=== PATIENT | female | born 1965 | race Caucasian/White ===

== ENCOUNTER → 2020-10-10 | Outpatient (CLI) | payer OTHER ==
[2020-10-10 10:10] LABS: T4, Free (Free Thyroxine) 1.42 ng/dL (0.78-2.19)
--- NOTE | 2020-10-10 16:14 | US ---
EXAMINATION TYPE: US thyroid st tissue head/neck DATE OF EXAM: 10/10/2020 COMPARISON: NONE CLINICAL HISTORY: E05.00 Thyrotoxicosis with diffuse goiter without. goiter, thyrotoxicosis GLAND SIZE: Right Lobe: 5.2 x 1.2 x 2.0 cm Overall Parenchyma: heterogenous Left Lobe: 5.7 x 1.6 x 2.0 cm Overall Parenchyma: heterogeneous Isthmus Thickness: 0.3 cm NODULES RIGHT: # of nodules measured on right: 2 1. 1.4 X 0.8 x 1.1 cm, mid , solid, isoechoic nodule, which is wider than tall, with ill-defined ma rgins, without echogenic foci. Prior size: no prior 2. 1.4 X 0.7 x 1.1 cm, mid , mixed, hypoechoic nodule, which is wider than tall, with smooth margin s, with echogenic foci. Prior size: no prior LEFT: # of nodules measured on left: 2 1. 2.9 X 1.9 x 2.9 cm, lower , solid or almost completely solid, isoechoic nodule, which is wider t bettencourt tall, with smooth margins, without echogenic foci. Prior size: no prior 2. 1.5 X 1.1 x 1.6 cm, mid , mixed, isoechoic nodule, which is wider than tall, with smooth margin s, without echogenic foci. Prior size: no prior ISTHMUS: # of nodules measured in the isthmus: 1 1. 0.8 X 0.5 x 0.9 cm solid, hypoechoic nodule, which is wider than tall, with smooth margins, with out echogenic foci. Prior size: no prior Bilateral neck scanned, lymph nodes noted bilaterally. Heterogeneous enlarged thyroid with multiple bilateral nodules. IMPRESSION: Most concerning right-sided nodule is the 1.4 cm mixed nodule with echogenic foci image 2 8, TR 4 lesion. Most concerning left-sided nodule is the dominant 2.9 cm isoechoic solid nodule, TR 3 lesion. The TR 3 lesion warrants sampling due to size. 2017 ACR TI-RADS LEVEL: TR-RADS 4 - Moderately Suspicious: Follow if > 1 cm, FNA if > 1.5 cm *Highest TI-RADS level nodule reported
--- NOTE | 2020-10-11 10:34 | NM ---
EXAMINATION TYPE: NM thyroid image w uptake DATE OF EXAM: 10/11/2020 COMPARISON: Ultrasound 10/10/2020 HISTORY: Abnormal thyroid ultrasound TECHNIQUE: Thyroid iodine uptake is calculated and images performed after the oral administration of 292 uCi 1-123 Capsule. FINDINGS: There is large area of increased uptake involving the lower pole the left right. There also is reduced uptake involving the mid and lower pole right thyroid appears to correspond to the ultras ound nodules.. The 4 hour iodine uptake is calculated at 10.2% (normal range 8-14%). The 24-hour iod ine uptake is calculated at 27.4% (normal range 15-35%). IMPRESSION: 1. Normal 4 and 24 hour uptake exam 2. Hot nodule left lower pole corresponds to the large 2.9 cm left thyroid nodule. 3. Cold nodules correspond to the mid pole right thyroid nodules noted by ultrasound.
== END ==
LOC: RADUSWWP 08:02
PROVIDERS: ATTEND Internal Medicine Endocrinology, Diabetes & Metabolism
DX: E05.20 Thyrotoxicosis with toxic multinodular goiter without thyrotoxic crisis or storm (principal)
CPT/HCPCS: 84439; 84445; 84443; 84480; 76536; 78014; A9516

== ENCOUNTER → 2021-08-30 | Outpatient (CLI) | payer OTHER ==
--- NOTE | 2021-09-02 06:58 | PE ---
EXAMINATION TYPE: PET CT fusion skull to thigh DATE OF EXAM: 08/30/2021 COMPARISON: Chest CT August 02, 2021 HISTORY: Solitary pulmonary nodule, abnormal CT. TECHNIQUE: Following the intravenous administration of 8.08 mCi of F-18 FDG, whole body images are p erformed from the skull base to the midthigh. Images are reviewed on the computer in the coronal, ax ial, and sagittal planes. Reconstructed rotating images are created on independent workstation and r eviewed on the computer. A localization and attenuation correction CT is performed in conjunction w ith the PET scan. Blood glucose level equals 90. SCAN: Initial Scan FINDINGS: SKULL BASE AND NECK: Mild increased uptake throughout the anterior tongue and posterior lower tongue base fairly symmetric presumed physiologic. No hypermetabolic neck lymph nodes. CHEST, MEDIASTINUM, AND HILAR REGION: Mild underlying emphysematous change is redemonstrated. Persist ent posterior right lower lung nodule or nodular consolidation measuring 3.0 x 1.2 cm axial image 115 extending inferiorly, mildly hypermetabolic, max SUV is 5.18 on axial image 122. Persistent anterior right upper lung irregular nodular consolidation with more suspicious focal anterior hypermetabolic 1.0 cm nodule axial image 90, max SUV is 5.62. Enlarging peripheral left midlung hypermetabolic nodul e measuring 2.1 x 1.5 cm axial image 91, max SUV is 7.06. Persistent 9 mm left lower lobe central nod ule image 99 with mild hypermetabolic uptake. The Max SUV less than 2.5. No abnormal hypermetabolic thoracic lymph nodes. ABDOMEN AND PELVIS: No adrenal masses. No abnormal hypermetabolic uptake. Normal excretion. OSSEOUS STRUCTURES: No abnormal hypermetabolic uptake. OTHER CT: Nonvisualized left thyroid lobe redemonstrated. Persistent cardiomegaly with prominent pulm onary arteries suggesting underlying pulmonary artery hypertension. Uterus surgically absent or markedly atrophic. Occasional right-sided pelvic phlebolith. Vacuum disc phenomenon with moderate disc space narrowing L5-S1 level. IMPRESSION: Scattered bilateral nodules and/or nodular consolidation redemonstrated. Areas of hyperme tabolic uptake however noted most suspicious anterior right mid lung and greater degree peripheral le ft mid lung levels. Neoplasm at these levels has to be considered. No abnormal adenopathy or metastat ic disease seen.
== END | disposition home or self-care (01) ==
LOC: RADPETMAIN 15:38
PROVIDERS: ATTEND Internal Medicine Critical Care Medicine
DX: R91.8 Other nonspecific abnormal finding of lung field (principal)
CPT/HCPCS: 78815; A9552

== ENCOUNTER → 2022-05-27 | Outpatient (CLI) | payer OTHER ==
[~2022-05-27] MED LIST: DOBUTamine DRIP for NUC MED 500 MG in DEXTROSE/WATER 1 250ML.BAG IV PRN; DOBUTamine DRIP for NUC MED 500 MG/250 ML BAG IV ONE
--- NOTE | 2022-05-27 11:57 | CA ---
Dobutamine Stress Echocardiogram Report Jose Awan Age: 57 Gender: F : 1965 Exam Date: 05/27/2022 10:22 Exam Location: [facility] Ordering Physician: Cristopher Cortez DO ([email or web address]) Referring Physician: CRISTOPHER CORTEZ,, Nanofabrication Specialist: Jalil Dunn Technologist: Ht (in): 67 Wt (lb): 245 Procedure CPT: Indication: R06.02 SOB ICD-9 Codes: Rhythm: Patient History: Cardiac Medications: Medications in past 24 hours: Contrast: Total Dose (mL): Stress Results Protocol: Dobutamine Peak Dose (???g/kg/min): Duration (min:sec): Atropine:(mg) Target HR: 140 Double Product: [id number] Resting HR: 90 Resting BP: 117 / 53 Peak HR: 145 Peak BP: 112 / 75 Max Predicted HR: 165 88 % Max Predicted HR Stress Summary: BP Response: Reason for Termination: Exceeded target heart rate (85% max predicted) Cardiac Symptoms: ECG Analysis Resting EKG: Normal sinus rhythm normal axis normal intervals Stress EKG: No evidence of ST segment depression Arrhythmia: No significant cardiac arrhythmia Echo Analysis Base Echo Analysis: Technically suboptimal study normal left ventricular size wall motion systolic function Low Echo Anaylsis: Normal hyperdynamic response Peak Echo Analysis: No dobutamine induced wall motion of normalities Recovery Echo: Normal MEASUREMENTS (Male/Female) Normal Values CONCLUSIONS Negative stress test by EKG criteria Negative dobutamine stress echo Dr. Laurent Pulliam MD (Electronically Signed) Final Date: 27 May 2022 11:56
== END | disposition home or self-care (01) ==
LOC: RADNMMAIN 09:52
PROVIDERS: ATTEND Internal Medicine
DX: R06.02 Shortness of breath (principal)
CPT/HCPCS: 93351

== ENCOUNTER → 2022-05-28 | Outpatient (CLI) | payer OTHER ==
[2022-05-28 16:39] LABS: INR 0.9 (<1.2); Partial Thromboplastin Time 28.4 sec (22.0-30.0); Prothrombin Time 10.2 sec (9.0-12.0)
[2022-05-28 22:51] LABS: HCT 39.1 % (37.2-46.3); HGB 12.4 g/dL (12.0-15.0); MCH 28.7 pg (27.0-32.0); MCHC 31.7 g/dL (32.0-37.0); MCV 90.5 fL (80.0-97.0); Mean Platelet Volume 11.6 fL (9.5-12.2); NRBC Per 100 WBC 0 /100 WBCS (0.0-0.0); Platelet Count 416 X 10*3/uL (140-440); RBC 4.32 X 10*6/uL (4.10-5.20); RDW 14.6 % (11.5-14.5); WBC 11.78 X 10*3/uL (4.50-10.00)
[2022-05-28 23:14] LABS: African American GFR (CKD) 111.7 (60.0-200.0); Anion Gap 10.7 mmol/L (10.00-18.00); Blood Urea Nitrogen 10.9 mg/dL (9.0-27.0); Carbon Dioxide 25.2 mmol/L (20.0-27.5); Non-African American GFR(CKD) 96.4 (60.0-200.0); Potassium 4.7 mmol/L (3.5-5.5)
== END | disposition home or self-care (01) ==
LOC: LABPAT 15:42
PROVIDERS: ATTEND Thoracic Surgery (Cardiothoracic Vascular Surgery)
DX: Z01.812 Encounter for preprocedural laboratory examination (principal); I10 Essential (primary) hypertension; E87.8 Other disorders of electrolyte and fluid balance, not elsewhere classified; Z79.899 Other long term (current) drug therapy; R58 Hemorrhage, not elsewhere classified; R91.8 Other nonspecific abnormal finding of lung field; R07.9 Chest pain, unspecified
CPT/HCPCS: 80051; 82565; 84520; 85027; 85610; 85730; 86850; 86900; 86901

== ENCOUNTER 2022-06-03 05:33 | Inpatient (IN) | payer OTHER ==
[2022-05-29 15:29] VITALS: BMI 37.5
[2022-06-03] MEDS ORDERED: SCOPOLAMINE 1 MG/72 HR PATCH TRANSDERM ONE (06:09)
[2022-06-03] MEDS ORDERED: LIDOCAINE 1% (10MG/ML) FOR IV START INTRADERMA PRN (06:09)
[2022-06-03] MEDS ORDERED: DEXAMETHASONE SOD PHOSPHATE 4 MG/ML 1 ML VIAL IV ONE (06:09)
[2022-06-03] MEDS ORDERED: ONDANSETRON 4 MG/2 ML VIAL IVP ONE ×2 (06:09→07:09)
[2022-06-03] MEDS ORDERED: LACTATED RINGERS 1,000 ML IV SCH ×2 (06:09→12:32)
[2022-06-03] MEDS ORDERED: LACTATED RINGERS 1,000 ML IV ONE ×3 (06:25→08:30)
[2022-06-03] MEDS ORDERED: MIDAZOLAM 2 MG/2 ML VIAL IVP ONE (06:55)
[2022-06-03] MEDS ORDERED: PROPOFOL 10 MG/ML 20 ML VIAL IV ONE (07:30)
[2022-06-03] MEDS ORDERED: MIDAZOLAM 2 MG/2 ML VIAL ONE (07:30)
[2022-06-03] MEDS ORDERED: LIDOCAINE 2% INJ 20 MG/ML (2 ML VIAL) ONE (07:30)
[2022-06-03] MEDS ORDERED: fentaNYL (PF) 50 MCG/ML 2 ML AMP ONE (07:30)
[2022-06-03] MEDS ORDERED: NEOSTIGMINE 1 MG/ML 10 ML VIAL ONE (07:30)
[2022-06-03] MEDS ORDERED: HYDROmorphone (PF) 1 MG/ML ONE (07:30)
[2022-06-03] MEDS ORDERED: DEXAMETHASONE SOD PHOSPHATE 10 MG/ML 1 ML VIAL ONE (07:30)
[2022-06-03] MEDS ORDERED: ROCURONIUM 10 MG/ML (5 ML VIAL) IV ONE (07:30)
[2022-06-03] MEDS ORDERED: SUCCINYLCHOLINE CHLORIDE 200 MG/10 ML VIAL IV ONE (07:30)
[2022-06-03] MEDS ORDERED: GLYCOPYRROLATE 0.2 MG/ML 2 ML VIAL ONE (07:30)
[2022-06-03] MEDS: SODIUM CHLORIDE 0.9% 50 ML with ceFAZolin 1,000 MG IV ONE ×4 (08:30→14:31)
[2022-06-03] MEDS ORDERED: BUPIVACAINE (PF) 0.25% 30 ML VIAL SQ ONE ×2 (08:30)
--- NOTE | 2022-06-03 10:39 | P.OP ---
Date of Procedure: 06/03/22 Preoperative Diagnosis: Bilateral pulmonary nodules Postoperative Diagnosis: Same Procedure(s) Performed: 1. Bronchoscopy 2. Left video assisted thorascopic surgery, wedge resection of left upper lobe nodule 3. Intercostal nerve block at 3 levels - 7, 9, 5 Anesthesia: GETA Surgeon: Neymar Mckeon Estimated Blood Loss (ml): 200 Urine output (ml): 200 Pathology: other (left upper lobe nodule) Condition: stable Disposition: PACU Indications for Procedure: This patient is a 57 year-old female with a history of GERD, HLD, and FM who was found to have bilateral pulmonary nodules on CT scan. She has a history of partial thyroidectomy with signs of sarcoid. She was never officially treated for sarcoid. Risks, alternatives and benefits were discussed with the patient regarding wedge resection of one of the lung nodules.She was in agreement to proceed. Operative Findings: Frozen section positive for granulomatous disease Description of Procedure: The patient underwent arterial line placement in the pre-operative suite. She was brought to the operating room and placed in the supine position. General anesthesia was induced and she was intubated with a double lumen tube. Bronchoscopy was performed to confirm placement and for diagnostic purposes. The entire tracheo-bronchial tree was normal. The patient was positioned in the right lateral decubitus position and the left chest was prepped and draped in the usual sterile fashion. A time-out was performed and antibiotics were given. I made a 2cm incision below the scapula. The left lung was isolated and entry into the chest was gained under direct vision. I made two additional incision in the 9th ICS and 5th ICS mid and anterior axillary line. 0.25% marcaine was used to perform intercostal nerve blocks in all three areas. Upon visualization of the lung there was a large nodule centrally in the left upper lobe. I attempted to wedge this with multiple firings of the endo MY, however this was very difficult given its central nature. Some of the nodule was piecemealed and sent to pathology for a frozen section. This revealed glaucomatous disease. I then completed the wedge. Some of this was sent for permanent pathology and culture. Progel was then placed along the lung surface, and the left chest was irrigated. A 28F chest tube was placed via the inferior incision and two lung ventilation was resumed. All incisions were closed in layers of vicryl and skin glue. The patient was extubated and sent to recovery in stable condition.
--- NOTE | 2022-06-03 11:35 | XR ---
EXAMINATION TYPE: XR chest 1V portable DATE OF EXAM: 06/03/2022 COMPARISON: 08/28/2021 HISTORY: Chest tube TECHNIQUE: Single frontal view of the chest is obtained. FINDINGS: A bilateral infiltrate and small effusion. Heart size stable. Left-sided chest tube noted and there is a left-sided pneumothorax measuring approximately 25 % pneumothorax no definite mediasti nal deviation. IMPRESSION: 1. Chest tube in position with approximately 25% left-sided pneumothorax. 2. Bilateral diffuse airspace disease with small effusion.
[2022-06-03] MEDS: HYDROmorphone 0.5 MG/0.5 ML SYRINGE IVP PRN ×2 (11:38→12:17)
[2022-06-03] MEDS ORDERED: IPRATROPIUM-ALBUTEROL 3 ML NEB IH PRN (12:32)
[2022-06-03] MEDS ORDERED: ONDANSETRON 4 MG/2 ML VIAL IVP PRN (12:32)
[2022-06-03] MEDS ORDERED: methocarbamoL 500 MG TAB PO PRN (12:32)
[2022-06-03] MEDS: ACETAMINOPHEN IV (For NPO) 1,000 MG in EMPTY BAG 1 BAG IVPB SCH ×2 (15:13→21:18)
[2022-06-03 15:28] LABS: Basophils # (A) 0.1 k/uL (0-0.2); Basophils % (A) 0 %; Eosinophils # (A) 0.2 k/uL (0-0.7); Eosinophils % (A) 1 %; HCT 40.4 % (34.0-46.0); HGB 13.1 gm/dL (11.4-16.0); Hypochromasia Slight; Lymphocytes # (A) 0.5 k/uL (1.0-4.8); Lymphocytes % (A) 2 %; MCH 29.4 pg (25.0-35.0); MCHC 32.4 g/dL (31.0-37.0); MCV 90.8 fL (80.0-100.0); Mean Platelet Volume 8.7; Monocytes # (A) 0.3 k/uL (0-1.0); Monocytes % (A) 1 %; Neutrophils # (A) 23.3 k/uL (1.3-7.7); Neutrophils % (A) 95 %; Platelet Count 366 k/uL (150-450); RBC 4.45 m/uL (3.80-5.40); WBC 24.4 k/uL (3.8-10.6)
[2022-06-03] MEDS: HEPARIN SODIUM,PORCINE/PF 5,000 UNIT/0.5 ML SYRINGE SQ SCH (16:22)
[2022-06-03] MEDS: IPRATROPIUM-ALBUTEROL 3 ML NEB IH SCH ×3 (16:32→20:40)
[2022-06-03 17:29] LABS: African American GFR (CKD) >90 (>60 ml/min/1.73 sqM); Anion Gap 8 mmol/L; Blood Urea Nitrogen 14 mg/dL (7-17); Calcium 8.8 mg/dL (8.4-10.2); Carbon Dioxide 22 mmol/L (22-30); Chloride 103 mmol/L (98-107); Glucose 176 mg/dL (74-99); Non-African American GFR(CKD) >90 (>60 ml/min/1.73 sqM); Potassium 5.4 mmol/L (3.5-5.1); Sodium 133 mmol/L (137-145)
[2022-06-03] MEDS: DULoxetine HCL 30 MG CAPSULE.DR PO SCH (17:44)
[2022-06-03] MEDS: FORMOTEROL FUMARATE 20 MCG/2 ML NEBU INHALATION SCH (20:39)
[2022-06-03] MEDS ORDERED: ETODOLAC 400 MG TAB PO SCH (21:00)
[2022-06-03] MEDS: KETOROLAC 15 MG/ML 1 ML VIAL IVP SCH (21:18)
--- NOTE | 2022-06-03 22:27 | P.CONS ---
History of Present Illness - Reason for Consult Consult date: 06/03/22 - History of Present Illness Patient is a 57-year female with a past medical history significant for smoking get severe reflux disease and anxiety this patient noticed to have a bilateral pulm nodules on CAT scan patient also history of partial thyroidectomy with signs of sarcoid patient has been admitted to the hospital in this patient with status post bronchoscopy and left video-assisted thoracoscopic surgery with with resolution of the left upper lobe nodule, infectious disease was consulted because of the granuloma and need for further work-up, patient denies having any history of any fever or any chills denies having any night sweats or weight loss patient do have a chronic cough which has been mild in intensity mostly dry in nature denies having hemoptysis or pleuritic chest pain patient on presentation to the hospital has been afebrile patient did have white count of 24.4 with a left shift kidney function has been normal patient did have AFB fungal and tissue cultures obtained which are currently pending and patient has received cefazolin perioperatively Past Medical History Past Medical History: Atrial Fibrillation, COPD, Fibromyalgia, GERD/Reflux, Osteoarthritis (OA), Thyroid Disorder Additional Past Medical History / Comment(s): STATES A-FIB RESOLVED WITH THYROID SURGERY (HAD GOITER), "BULGING DISC & TEAR", MIGRAINES, "EXHAUSTED ALL THE TIME", SOB, SEASONAL ALLERGIES. History of Any Multi-Drug Resistant Organisms: None Reported Past Surgical History: Adenoidectomy, Section, Hysterectomy, Joint Replacement, Tonsillectomy Additional Past Surgical History / Comment(s): LEFT THYROIDECTOMY, bronchoscopy, right hip replacemnet. Past Anesthesia/Blood Transfusion Reactions: Previous Problems w/ Anesthesia, Motion Sickness, Postoperative Nausea & Vomiting (PONV) Additional Past Anesthesia/Blood Transfusion Reaction / Comm: STATES BP DROPPED AND THEY HAD TO PUSH FLUIDS WITH THYROID SURGERY. SISTER PONV. Past Psychological History: Anxiety Additional Psychological History / Comment(s): ANXIETY WITH HEALTH ISSUES. STATES DULOXETINE TAKEN FOR FIBROMYALGIA. Smoking Status: Current every day smoker Past Alcohol Use History: Occasional Additional Past Alcohol Use History / Comment(s): SMOKES 1 PPD OR LESS, HX OF 1 1/2 PPD, STARTED SMOKING AT AGE 18. Past Drug Use History: None Reported - Past Family History Mother Family Medical History: No Reported History Medications and Allergies Home Medications Medication Instructions Recorded Confirmed Type Aspirin/Acetaminophen/Caffeine 1 each PO DIRECTED PRN 08/23/21 06/03/22 History [Excedrin Migraine Caplet] DULoxetine HCL [Cymbalta] 30 mg PO W/SUPPER 08/23/21 06/03/22 History Omeprazole 20 mg PO DAILY PRN 08/23/21 06/03/22 History diphenhydrAMINE [Benadryl] 25 mg PO HS PRN 08/23/21 06/03/22 History methocarbamoL [Methocarbamol] 500 mg PO QID PRN 08/23/21 06/03/22 History Diclofenac Sodium [Voltaren] 75 mg PO BID 05/29/22 06/03/22 History HYDROcodone/APAP 7.5-325MG [Sayre 1 tab PO DIRECTED PRN 05/29/22 06/03/22 History 7.5-325] Allergies Allergy/AdvReac Type Severity Reaction Status Date / Time No Known Allergies Allergy Verified 06/03/22 06:22 Physical Exam Vitals: Vital Signs Temp Pulse Pulse Pulse Resp BP BP 06/03/22 12:14 106 H 16 103/58 06/03/22 11:59 106 H 16 100/57 06/03/22 11:44 104 H 16 103/52 06/03/22 11:29 101 H 18 113/56 06/03/22 11:14 103 H 16 101/62 06/03/22 10:59 96 16 98/55 06/03/22 10:44 97 16 124/52 06/03/22 10:29 96.9 F L 99 16 124/52 06/03/22 07:04 93 18 06/03/22 06:26 96.7 F L 103 H 20 BP Pulse Ox 06/03/22 12:14 96 06/03/22 11:59 96 06/03/22 11:44 97 06/03/22 11:29 96 06/03/22 11:14 96 06/03/22 10:59 96 06/03/22 10:44 97 06/03/22 10:29 95 06/03/22 07:04 125/67 06/03/22 06:26 118/56 98 Intake and Output 06/02/22 06/03/22 06/03/22 22:59 06:59 14:59 Intake Total 700 1000 Output Total 400 Balance 700 600 Intake: IV 700 1000 Output: Urine 200 Estimated Blood Loss 200 Other: Weight 106.1 kg Results CBC & Chem 7: 06/03/22 14:37 06/03/22 16:55 Assessment and Plan Plan: 1patient with the history of pulmonary nodules with a masslike consolidation changes within the left upper lobe in this patient who is status post wedge resection of the left upper lobe frozen section did shows possible granulomatous disease with a final biopsy report as well as cultures are currently pending. 2we will obtain QuantiFERON TB Gold test and fungal serology as well as ARIK level. 3cultures and histopathology will be followed with the treatment on the basis of final cultures and histopathology 4continue with the cefazolin perioperatively for surgical prophylaxis We will follow on clinical condition and cultures to further adjust medication if needed Thank you for this consultation will follow this patient along with you Time with Patient: Greater than 30
[2022-06-04] MEDS: KETOROLAC 15 MG/ML 1 ML VIAL IVP SCH ×5 (02:02→23:25)
[2022-06-04] MEDS: HEPARIN SODIUM,PORCINE/PF 5,000 UNIT/0.5 ML SYRINGE SQ SCH ×4 (02:03→23:25)
[2022-06-04 07:10] LABS: Basophils % (A) 0 %; Eosinophils # (A) 0.1 k/uL (0-0.7); Eosinophils % (A) 1 %; Hypochromasia Slight; Lymphocytes # (A) 1.2 k/uL (1.0-4.8); Lymphocytes % (A) 6 %; MCH 29.3 pg (25.0-35.0); MCHC 32.3 g/dL (31.0-37.0); MCV 90.7 fL (80.0-100.0); Mean Platelet Volume 8.1; Monocytes # (A) 1.3 k/uL (0-1.0); Monocytes % (A) 6 %; Neutrophils % (A) 86 %; Platelet Count 326 k/uL (150-450); RBC 3.75 m/uL (3.80-5.40); RDW 13.9 % (11.5-15.5); WBC 19.8 k/uL (3.8-10.6)
[2022-06-04 07:33] LABS: ALT 16 U/L (4-34); AST 29 U/L (14-36); African American GFR (CKD) >90 (>60 ml/min/1.73 sqM); Albumin 3.8 g/dL (3.5-5.0); Alkaline Phosphatase 94 U/L (38-126); Anion Gap 9 mmol/L; Blood Urea Nitrogen 16 mg/dL (7-17); C Reactive Protein 7.2 mg/dL (<1.0); Calcium 8.6 mg/dL (8.4-10.2); Carbon Dioxide 20 mmol/L (22-30); Chloride 106 mmol/L (98-107); Glucose 172 mg/dL (74-99); Non-African American GFR(CKD) >90 (>60 ml/min/1.73 sqM); Potassium 4.6 mmol/L (3.5-5.1); Sodium 135 mmol/L (137-145); Total Bilirubin 0.5 mg/dL (0.2-1.3)
[2022-06-04] MEDS: IPRATROPIUM-ALBUTEROL 3 ML NEB IH SCH ×4 (08:26→20:13)
[2022-06-04] MEDS: PANTOPRAZOLE 40 MG TABLET PO SCH (08:26)
[2022-06-04] MEDS: FORMOTEROL FUMARATE 20 MCG/2 ML NEBU INHALATION SCH ×2 (08:26→20:13)
[2022-06-04] MEDS: HYDROcodone/APAP 7.5-325MG 1 EACH TAB PO PRN ×2 (08:26→16:50)
--- NOTE | 2022-06-04 08:36 | XR ---
EXAMINATION TYPE: XR chest 1V DATE OF EXAM: 06/04/2022 COMPARISON: 06/03/2022 HISTORY: Postop TECHNIQUE: Single frontal view of the chest is obtained. FINDINGS: Bilateral infiltrate and small effusion. Heart size stable. Left- sided chest tube noted a nd there is a left-sided pneumothorax measuring approximately 15 % pneumothorax no definite mediastin al deviation. IMPRESSION: Interval reduction in size of the left-sided pneumothorax now measuring approximately 15 % pneumothorax and bilateral infiltrates.
--- NOTE | 2022-06-04 09:01 | P.PN ---
Subjective Progress Note Date: 06/04/22 Principal diagnosis: Bilateral pulmonary nodules. Previous medical history of fibromyalgia, anxiety/depression, Covid infection in 11/2021, paroxysmal atrial fibrillation which resolved after partial thyroidectomy, sarcoidosis, current tobacco dependence POD #1 bronchoscopy, left video-assisted thoracoscopic surgery, wedge resection of the left upper lobe nodule, intercostal nerve block at 3 levels: 7, 9, 5 The patient was seen and examined sitting up in bed on the cardiac stepdown unit in no acute distress. Does state pain is mostly controlled with current medication regimen although it does hurt when she coughs, denies shortness of breath. Currently on 4 L nasal cannula with oxygen saturation in the high 90s, able to achieve 1000 mL on incentive spirometry. Left-sided chest tube present to continuous wall suction, noticeable air leak with coughing and expiration present. Patient states she has been up and ambulatory to and from the bathroom without difficulty. No other new concerns. Objective - Vital Signs Vital signs: Vital Signs Temp 98.0 F 06/04/22 04:00 Pulse 89 06/04/22 08:40 Resp 20 06/04/22 04:00 BP 118/69 06/04/22 04:00 Pulse Ox 96 06/04/22 08:29 FiO2 21 06/04/22 08:29 Intake & Output 06/03/22 06/04/22 06/04/22 18:59 06:59 18:59 Intake Total 1520 180 Output Total 1125 0 80 Balance 395 -2060 100 Weight 106.1 kg Intake: IV 1400 Oral 120 180 Output: Chest Tube Drainage 80 Chest Tube Left 80 Urine 925 2060 Estimated Blood Loss 200 Other: Voiding Method Toilet - Exam CONSTITUTIONAL: Appears comfortable, cooperative, no acute distress RESPIRATORY: Lungs sounds diminished bilaterally. Respirations even, nonlabored. Currently on 4 L nasal cannula with oxygen saturation 97%. Able to achieve 1000 mL on incentive spirometry. Strong cough. CARDIOVASCULAR: S1, S2 present. Regular rate and rhythm, sinus rhythm on tel emetry. Palpable peripheral pulses bilaterally. No edema present. No calf pain or tenderness noted. SCDs present. GASTROINTESTINAL: Abdomen soft, nontender, nondistended. Active bowel sounds present 4 quadrants. Tolerating diet. GENITOURINARY: Continues to void INTEGUMENTARY: Skin is warm and dry. Thoracic incision well approximated and covered with dry intact dressing. NEUROLOGIC: Cranial nerves II through XII intact MUSKULOSKELETAL: Able to move all extremities, strength equal bilaterally, gait normal PSYCHIATRIC: Alert and oriented to person place and time, appropriate affect, intact judgment and insight INVASIVE LINES AND TUBES: Left pleural chest tubes present and connected to wall suction, air leak present with coughing and expiration, 120 mL serosanguineous drainage since surgery - Allied health notes Allied health notes reviewed: nursing - Labs CBC & Chem 7: 06/04/22 06:53 06/04/22 06:53 Labs: Abnormal Lab Results - Last 24 Hours (Table) 06/03/22 06/03/22 06/04/22 Range/Units 14:37 16:55 06:53 WBC 24.4 H 19.8 H (3.8-10.6) k/uL RBC 3.75 L (3.80-5.40) m/uL Hgb 11.0 L (11.4-16.0) gm/dL Neutrophils # 23.3 H 17.0 H (1.3-7.7) k/uL Lymphocytes # 0.5 L (1.0-4.8) k/uL Monocytes # 1.3 H (0-1.0) k/uL Sodium 133 L (137-145) mmol/L Potassium 5.4 H (3.5-5.1) mmol/L Carbon Dioxide (22-30) mmol/L Glucose 176 H (74-99) mg/dL C-Reactive Protein (<1.0) mg/dL 06/04/22 Range/Units 06:53 WBC (3.8-10.6) k/uL RBC (3.80-5.40) m/uL Hgb (11.4-16.0) gm/dL Neutrophils # (1.3-7.7) k/uL Lymphocytes # (1.0-4.8) k/uL Monocytes # (0-1.0) k/uL Sodium 135 L (137-145) mmol/L Potassium (3.5-5.1) mmol/L Carbon Dioxide 20 L (22-30) mmol/L Glucose 172 H (74-99) mg/dL C-Reactive Protein 7.2 H (<1.0) mg/dL Microbiology - Last 24 Hours (Table) 06/03/22 10:14 Gram Stain - Preliminary Lung - Left Tissue Culture - Preliminary 06/03/22 10:14 Anaerobic Culture - Preliminary Lung - Left 06/03/22 10:14 Acid Fast Bacilli Culture - Preliminary Lung - Left 06/03/22 10:14 Fungal Culture - Preliminary Lung - Left - Imaging and Cardiology Chest x-ray: report reviewed, image reviewed Assessment and Plan Assessment: 1. Bilateral pulmonary nodules, status post bronchoscopy, left video-assisted thoracoscopic surgery, wedge resection of the left upper lobe nodule, frozen section positive for granulomatous disease, final pathology pending 2. History of fibromyalgia 3. Anxiety/depression 4. Covid infection in 11/2021 5. Paroxysmal atrial fibrillation which resolved after partial thyroidectomy 6. Sarcoidosis 7. Current tobacco dependence Plan: 1. Continue chest tube to continuous wall suction for another 24 hours, monitor for air leak resolution 2. Wean O2 as tolerated. Encourage incentive spirometry is 10 times every hour while awake. Bronchodilators per pulmonology 3. Increase activity, ambulate as tolerated. May take off suction for amb ulation 4. Will monitor daily labs and x-rays, monitor for final pathology 5. Infectious disease consulted, appreciate recommendations 6. Pain control with current medication regimen 7. Continue home medications 8. More recommendations to follow
[2022-06-04 13:18] LABS: Erythrocyte Sedimentation Rate 83 mm/hr (0-20)
--- NOTE | 2022-06-04 13:53 | P.CNPUL ---
History of Present Illness Consult date: 06/04/22 Requesting physician: Neymar Mckeon Reason for consult: other (Possible sarcoidosis) Chief complaint: Lung nodules History of present illness: This is a 57-year-old female who normally sees Dr. Raman for presumptive sarcoidosis. Patient underwent previous bronchoscopy and transbronchial biopsy done by Dr. Raman in August of 2021. Patient had multiple transbronchial biopsies of right middle lobe, right lower lobe and left upper lobe she also had bronchoalveolar lavage of the right middle lobe, and transbronchial needle aspiration of station 4R and station 7 lymph node. Biopsies back then were nondiagnostic of neoplasm or diarrhea lumbar this inflammation. CT of the chest back then showed Multiple subpleural nodules and mediastinal adenopathy. At one point the patient had partial thyroidectomy and that was diagnostic of sarcoidosis. Patient has been following up with Dr. Raman, and the last time she saw him was in February of 2022. Repeat CT of the chest in February showed increase in the size of the left midlung masslike consolidation as well as a new masslike areas within the right lower lobe adjacent to prior cavitary lesion. PET scan showed slight uptake and hypermetabolic activity. Hence the patient was advised to have surgical referral. Yesterday the patient underwent bronchoscopy, left video-assisted wedge resection of left upper lobe nodule. And the initial frozen section diagnosis seems to be noncaseating granuloma consistent with sarcoid however cultures are pending including fungal cultures and TB cultures. Considering her complex pulmonary history and possible sarcoidosis, this consult was initiated. According to the patient she was treated with prednisone in the past, and the last time she took prednisone was 8 months ago. Did not receive any other treatment for her sarcoidosis except prednisone Review of Systems Constitutional: Negative HEENT: Negative Pulmonary: As noted in HPI Cardiac: Negative Hematologic: Negative GI: Negative Genitourinary: Negative Musculoskeletal: Negative Endocrine: Negative Neurologic: Negative Hematologic: Negative Psychiatric: Negative Skin: Past Medical History Past Medical History: Atrial Fibrillation, COPD, Fibromyalgia, GERD/Reflux, Osteoarthritis (OA), Thyroid Disorder Additional Past Medical History / Comment(s): STATES A-FIB RESOLVED WITH THYROID SURGERY (HAD GOITER), "BULGING DISC & TEAR", MIGRAINES, "EXHAUSTED ALL THE TIME", SOB, SEASONAL ALLERGIES. History of Any Multi-Drug Resistant Organisms: None Reported Past Surgical History: Adenoidectomy, Section, Hysterectomy, Joint Replacement, Tonsillectomy Additional Past Surgical History / Comment(s): LEFT THYROIDECTOMY, bronchoscopy, right hip replacemnet. Past Anesthesia/Blood Transfusion Reactions: Previous Problems w/ Anesthesia, Motion Sickness, Postoperative Nausea & Vomiting (PONV) Additional Past Anesthesia/Blood Transfusion Reaction / Comment(s): STATES BP DROPPED AND THEY HAD TO PUSH FLUIDS WITH THYROID SURGERY. SISTER PONV. Past Psychological History: Anxiety Additional Psychological History / Comment(s): ANXIETY WITH HEALTH ISSUES. ST ATES DULOXETINE TAKEN FOR FIBROMYALGIA. Smoking Status: Current every day smoker Past Alcohol Use History: Occasional Additional Past Alcohol Use History / Comment(s): SMOKES 1 PPD OR LESS, HX OF 1 1/2 PPD, STARTED SMOKING AT AGE 18. Past Drug Use History: None Reported - Past Family History Mother Family Medical History: No Reported History Medications and Allergies Home Medications Medication Instructions Recorded Confirmed Type Aspirin/Acetaminophen/Caffeine 1 each PO DIRECTED PRN 08/23/21 06/03/22 History [Excedrin Migraine Caplet] DULoxetine HCL [Cymbalta] 30 mg PO W/SUPPER 08/23/21 06/03/22 History Omeprazole 20 mg PO DAILY PRN 08/23/21 06/03/22 History diphenhydrAMINE [Benadryl] 25 mg PO HS PRN 08/23/21 06/03/22 History methocarbamoL [Methocarbamol] 500 mg PO QID PRN 08/23/21 06/03/22 History Diclofenac Sodium [Voltaren] 75 mg PO BID 05/29/22 06/03/22 History HYDROcodone/APAP 7.5-325MG [[place] 1 tab PO DIRECTED PRN 05/29/22 06/03/22 History 7.5-325] Allergies Allergy/AdvReac Type Severity Reaction Status Date / Time No Known Allergies Allergy Verified 06/03/22 06:22 Physical Exam Vitals: Vital Signs Temp Pulse Pulse Resp BP Pulse Ox FiO2 06/04/22 12:01 90 06/04/22 12:00 98.2 F 101 H 20 116/68 91 L 06/04/22 11:51 88 06/04/22 09:54 95 06/04/22 08:40 89 06/04/22 08:29 96 21 06/04/22 08:26 92 06/04/22 08:00 97.5 F L 99 20 119/70 96 06/04/22 04:00 98.0 F 96 20 118/69 97 06/04/22 00:00 97.9 F 92 21 127/73 95 06/03/22 20:50 93 06/03/22 20:41 92 06/03/22 20:00 111 H 23 142/77 93 L 06/03/22 17:46 98.5 F 96 20 112/71 92 L 06/03/22 16:47 96 06/03/22 16:33 96 06/03/22 16:00 97.3 F L 95 20 110/71 94 L 06/03/22 14:25 98.5 F 96 20 112/71 92 L 06/03/22 13:49 103 H 16 101/69 93 L Intake and Output 06/03/22 06/04/22 06/04/22 22:59 06:59 14:59 Intake Total 120 180 Output Total 1984 800 480 Balance -1865 -800 -300 Intake: Oral 120 180 Output: Chest Tube Drainage 80 Chest Tube Left 80 Urine 1984 800 400 Other: Voiding Method Toilet Toilet Weight 106.1 kg Physical Exam: Revealed 57-year-old female in no distress. Head: Atraumatic, normocephalic. HEENT:[Neck is supple.] [No neck masses.] [No thyromegaly.] [No JVD.] Chest: [Clear throughout, no crackles, no rhonchi, no wheezes.] Left-sided chest tube is noted. Cardiac Exam: [Normal S1 and S2, no S3 gallop, no murmur.] Abdomen: [Soft, nontender, no megaly, no rebound, no guarding, normal bowel sounds.] Extremities: [No clubbing, no edema, no cyanosis.] Neurological Exam: [No focal neurologic deficit.] Alert oriented 3. Psychiatric: Normal mood affect and normal mental status examination. Skin: No rashes. Musculoskeletal: No deformities and no limitation in range of motion. Results - Laboratory Findings CBC and BMP: 06/04/22 06:53 06/04/22 06:53 Abnormal lab findings: Abnormal Labs 06/03/22 06/03/22 06/04/22 14:37 16:55 06:53 WBC 24.4 H 19.8 H RBC 3.75 L Hgb 11.0 L Neutrophils # 23.3 H 17.0 H Lymphocytes # 0.5 L Monocytes # 1.3 H ESR 83 H Sodium 133 L Potassium 5.4 H Carbon Dioxide Glucose 176 H C-Reactive Protein 06/04/22 06:53 WBC RBC Hgb Neutrophils # Lymphocytes # Monocytes # ESR Sodium 135 L Potassium Carbon Dioxide 20 L Glucose 172 H C-Reactive Protein 7.2 H - Diagnostic Findings Chest x-ray: image reviewed (As noted in HPI.) Assessment and Plan Assessment: Impression: Status post left video-assisted thoracoscopic surgery, wedge resection of left upper lobe nodule, postoperative day #1 Suspect sarcoidosis. Chronic atrial fibrillation Fibromyalgia History of hypothyroidism recommendation: Recommendation: Continue present supportive care measures Resume home meds Awaiting final pathology on her wedge resection Patient will need to have follow-up with Dr. Raman Incentive spirometry Early ambulation We will continue to follow Time with Patient: Greater than 30
[2022-06-04] MEDS: DULoxetine HCL 30 MG CAPSULE.DR PO SCH (16:50)
[2022-06-05] MEDS: HYDROcodone/APAP 7.5-325MG 1 EACH TAB PO PRN ×4 (01:03→20:51)
[2022-06-05] MEDS: KETOROLAC 15 MG/ML 1 ML VIAL IVP SCH ×4 (06:34→23:36)
[2022-06-05] MEDS: PANTOPRAZOLE 40 MG TABLET PO SCH (06:34)
[2022-06-05] MEDS ORDERED: MAGNESIUM HYDROXIDE 2,400 MG/10 ML CUP PO PRN (06:56)
--- NOTE | 2022-06-05 07:43 | P.PN ---
Subjective Progress Note Date: 06/05/22 Principal diagnosis: Bilateral pulmonary nodules. Previous medical history of fibromyalgia, anxiety/depression, Covid infection in 11/2021, paroxysmal atrial fibrillation which resolved after partial thyroidectomy, possible sarcoidosis, current tobacco dependence POD #2 bronchoscopy, left video-assisted thoracoscopic surgery, wedge resection of the left upper lobe nodule, intercostal nerve block at 3 levels: 7, 9, 5 The patient was seen and examined sitting up in a recliner on the cardiac stepdown unit in no acute distress. Does state pain is controlled with current medication regimen although it does hurt when she coughs, denies shortness of breath. Currently on room air with oxygen saturation in the mid 90s, able to achieve 1250 mL on incentive spirometry. Left-sided chest tube present to continuous wall suction, no air leak present this morning. Patient states she has been up and ambulatory in the hallway without difficulty. No other new concerns. Objective - Vital Signs Vital signs: Vital Signs Temp 98.2 F 06/05/22 04:00 Pulse 91 06/05/22 04:00 Resp 20 06/05/22 04:00 BP 118/76 06/05/22 04:00 Pulse Ox 95 06/05/22 04:00 FiO2 21 06/04/22 08:29 Intake & Output 06/04/22 06/05/22 06/05/22 18:59 06:59 18:59 Intake Total 540 Output Total 1520 1915 Balance -980 -1915 Intake: Oral 540 Output: Chest Tube Drainage 120 90 Chest Tube Left 120 90 Urine 1400 1825 - Exam CONSTITUTIONAL: Appears comfortable, cooperative, no acute distress RESPIRATORY: Lungs sounds diminished bilaterally. Respirations even, nonlabored. Currently on room air with oxygen saturation 95%. Able to achieve 1250 mL on incentive spirometry. Strong cough. CARDIOVASCULAR: S1, S2 present. Regular rate and rhythm, sinus rhythm on telemetry. Palpable peripheral pulses bilaterally. No edema present. No calf pain or tenderness noted. SCDs present. GASTROINTESTINAL: Abdomen soft, nontender, nondistended. Active bowel sounds present 4 quadrants. Tolerating diet. Positive flatus, negative bowel movement GENITOURINARY: Continues to void INTEGUMENTARY: Skin is warm and dry. Thoracic incisions well approximated and covered with dry intact dressing. NEUROLOGIC: Cranial nerves II through XII intact MUSKULOSKELETAL: Able to move all extremities, strength equal bilaterally, gait normal PSYCHIATRIC: Alert and oriented to person place and time, appropriate affect, intact judgment and insight INVASIVE LINES AND TUBES: Left pleural chest tubes present and connected to wal l suction, no air leak present this morning, 90 mL serosanguineous drainage overnight, 180 mL in the last 24 hours - Allied health notes Allied health notes reviewed: nursing - Labs CBC & Chem 7: 06/04/22 06:53 06/04/22 06:53 Labs: Abnormal Lab Results - Last 24 Hours (Table) 06/04/22 06/04/22 Range/Units 06:53 06:53 ESR 83 H (0-20) mm/hr Procalcitonin 0.10 H (0.02-0.09) ng/mL Microbiology - Last 24 Hours (Table) 06/03/22 10:14 Acid Fast Bacilli Smear - Final Lung - Left Acid Fast Bacilli Culture - Preliminary 06/03/22 10:14 Gram Stain - Preliminary Lung - Left Tissue Culture - Preliminary - Imaging and Cardiology Chest x-ray: image reviewed Assessment and Plan Assessment: 1. Bilateral pulmonary nodules, status post bronchoscopy, left video-assisted thoracoscopic surgery, wedge resection of the left upper lobe nodule, frozen section positive for granulomatous disease, final pathology pending 2. History of fibromyalgia 3. Anxiety/depression 4. Covid infection in 11/2021 5. Paroxysmal atrial fibrillation which resolved after partial thyroidectomy 6. Possible sarcoidosis 7. Current tobacco dependence Plan: 1. Chest tube placed to waterseal 2. Encourage incentive spirometry is 10 times every hour while awake. Bronchodilators per pulmonology 3. Increase activity, ambulate as tolerated 4. Will monitor daily labs and x-rays, monitor for final pathology 5. Infectious disease consulted, appreciate recommendations 6. Pain control with current medication regimen 7. Continue home medications 8. More recommendations to follow
[2022-06-05] MEDS: SENNOSIDES-DOCUSATE SODIUM 1 EACH TAB PO SCH ×2 (08:06→20:51)
[2022-06-05] MEDS: HEPARIN SODIUM,PORCINE/PF 5,000 UNIT/0.5 ML SYRINGE SQ SCH ×3 (08:06→23:36)
--- NOTE | 2022-06-05 08:11 | XR ---
EXAMINATION TYPE: XR chest 1V portable DATE OF EXAM: 06/05/2022 COMPARISON: 06/04/2022 HISTORY: Postsurgical TECHNIQUE: Single frontal view of the chest is obtained. FINDINGS: Bilateral infiltrate and small effusion. Heart size stable. Left- sided chest tube noted a nd there is a left-sided pneumothorax measuring approximately 10 % pneumothorax no definite mediastin al deviation. IMPRESSION: 1. Interval reduction in size of the left-sided pneumothorax now measuring approximately 10% pneumoth orax. 2. Stable bilateral infiltrates.
[2022-06-05] MEDS: IPRATROPIUM-ALBUTEROL 3 ML NEB IH SCH ×4 (08:17→21:01)
[2022-06-05] MEDS: FORMOTEROL FUMARATE 20 MCG/2 ML NEBU INHALATION SCH ×2 (08:17→21:01)
[2022-06-05 08:39] LABS: HGB 11.2 gm/dL (11.4-16.0); Hypochromasia Moderate; MCH 29.1 pg (25.0-35.0); MCHC 31.9 g/dL (31.0-37.0); MCV 91.3 fL (80.0-100.0); Mean Platelet Volume 9.5; Platelet Count 288 k/uL (150-450); RBC 3.83 m/uL (3.80-5.40); RDW 14.3 % (11.5-15.5); WBC 13.7 k/uL (3.8-10.6)
[2022-06-05 08:53] LABS: African American GFR (CKD) >90 (>60 ml/min/1.73 sqM); Anion Gap 8 mmol/L; Blood Urea Nitrogen 12 mg/dL (7-17); Calcium 8.8 mg/dL (8.4-10.2); Carbon Dioxide 27 mmol/L (22-30); Chloride 104 mmol/L (98-107); Glucose 109 mg/dL (74-99); Non-African American GFR(CKD) >90 (>60 ml/min/1.73 sqM); Potassium 4.6 mmol/L (3.5-5.1); Sodium 139 mmol/L (137-145)
--- NOTE | 2022-06-05 11:25 | P.ANPRN ---
Procedure Note - Anesthesia - Invasive Line Right Arterial Line Time Out Performed: Yes Date of Procedure: 06/05/22 Location of Patient: PreOp Preparation: Sterile Prep, Sterile Dressing Arterial Line Location: Radial Ultrasound Used: No Purpose - Visualization and Identification of Vasculature: No Image Stored and Saved: No Narrative: Central line placement per sterile protocol utilized.
--- NOTE | 2022-06-05 12:33 | P.PN ---
Subjective Progress Note Date: 06/05/22 Principal diagnosis: Status post left video-assisted thoracoscopic surgery, wedge resection of left upper lobe nodule, postoperative day #2 This is a 57-year-old female who normally sees Dr. Raman for presumptive sarcoidosis. Patient underwent previous bronchoscopy and transbronchial biopsy done by Dr. Raman in August of 2021. Patient had multiple transbronchial biopsies of right middle lobe, right lower lobe and left upper lobe she also had bronchoalveolar lavage of the right middle lobe, and transbronchial needle aspiration of station 4R and station 7 lymph node. Biopsies back then were nondiagnostic of neoplasm or diarrhea lumbar this inflammation. CT of the chest back then showed Multiple subpleural nodules and mediastinal adenopathy. At one point the patient had partial thyroidectomy and that was diagnostic of sarcoidosis. Patient has been following up with Dr. Raman, and the last time she saw him was in February of 2022. Repeat CT of the chest in February showed increase in the size of the left midlung masslike consolidation as well as a new masslike areas within the right lower lobe adjacent to prior cavitary lesion. PET scan showed slight uptake and hypermetabolic activity. Hence the patient was advised to have surgical referral. Yesterday the patient underwent bronchoscopy, left video-assisted wedge resection of left upper lobe nodule. And the initial frozen section diagnosis seems to be noncaseating granuloma consistent with sarcoid however cultures are pending including fungal cultures and TB cultures. Considering her complex pulmonary history and possible sarcoidosis, this consult was initiated. According to the patient she was treated with prednisone in the past, and the last time she took prednisone was 8 months ago. Did not receive any other treatment for her sarcoidosis except prednisone Reevaluated today on 06/05/22, patient continues to do well, chest tube remains in place, her pneumothorax is improved, and she has a minimal air leak noted in the pleural VAC. Patient is otherwise relatively asymptomatic. WBC count is 13.7 hemoglobin 11.2 electrolytes are normal and renal profile is normal. Objective - Vital Signs Vital signs: Vital Signs Temp 97.9 F 06/05/22 11:18 Pulse 89 06/05/22 11:40 Resp 18 06/05/22 11:18 BP 115/78 06/05/22 11:18 Pulse Ox 94 L 06/05/22 11:18 FiO2 21 06/04/22 08:29 Intake & Output 06/04/22 06/05/22 06/05/22 18:59 06:59 18:59 Intake Total 540 118 Output Total 1520 1915 950 Balance -980 - -832 Intake: Oral 540 118 Output: Chest Tube Drainage 120 90 Chest Tube Left 120 90 Urine 1400 1825 950 Other: # Voids 2 - Exam Physical Exam: Revealed 57-year-old female in no distress. Head: Atraumatic, normocephalic. HEENT:[Neck is supple.] [No neck masses.] [No thyromegaly.] [No JVD.] Chest: [Clear throughout, no crackles, no rhonchi, no wheezes.] Left-sided chest tube is noted. Minimal leak is noted in the pleural VAC. Cardiac Exam: [Normal S1 and S2, no S3 gallop, no murmur.] Abdomen: [Soft, nontender, no megaly, no rebound, no guarding, normal bowel sounds.] Extremities: [No clubbing, no edema, no cyanosis.] Neurological Exam: [No focal neurologic deficit.] Alert oriented 3. Psychiatric: Normal mood affect and normal mental status examination. Skin: No rashes. Musculoskeletal: No deformities and no limitation in range of motion. - Labs CBC & Chem 7: 06/05/22 07:16 06/05/22 07:16 Labs: Abnormal Lab Results - Last 24 Hours (Table) 06/04/22 06/04/22 06/05/22 Range/Units 06:53 06:53 07:16 WBC 13.7 H (3.8-10.6) k/uL Hgb 11.2 L (11.4-16.0) gm/dL ESR 83 H (0-20) mm/hr Glucose (74-99) mg/dL Procalcitonin 0.10 H (0.02-0.09) ng/mL 06/05/22 Range/Units 07:16 WBC (3.8-10.6) k/uL Hgb (11.4-16.0) gm/dL ESR (0-20) mm/hr Glucose 109 H (74-99) mg/dL Procalcitonin (0.02-0.09) ng/mL Microbiology - Last 24 Hours (Table) 06/03/22 10:14 Gram Stain - Preliminary Lung - Left Tissue Culture - Preliminary 06/03/22 10:14 Acid Fast Bacilli Smear - Final Lung - Left Acid Fast Bacilli Culture - Preliminary Assessment and Plan Assessment: Impression: Status post left video-assisted thoracoscopic surgery, wedge resection of left upper lobe nodule, postoperative day #2 Suspect sarcoidosis. Chronic atrial fibrillation Fibromyalgia History of hypothyroidism Postoperative pneumothorax, expected Recommendation: Continue chest tube/pleural VAC on suction. Continue present supportive care measures Awaiting final pathology which may take a few more days. Consider discharge planning in the next 24 hours after chest tube is removed. Possibly this could be done tomorrow. Depending on chest x-ray and depending and the patient continues to have air leak. Incentive spirometry Early ambulation We will continue to follow Time with Patient: Less than 30
[2022-06-05] MEDS: DULoxetine HCL 30 MG CAPSULE.DR PO SCH (16:41)
--- NOTE | 2022-06-05 17:32 | P.PN ---
Subjective Progress Note Date: 06/04/22 Principal diagnosis: Pulmonary granuloma Patient is a 57-year female with a past medical history significant for smoking get severe reflux disease and anxiety this patient noticed to have a bilateral pulm nodules on CAT scan patient also history of partial thyroidectomy with signs of sarcoid patient has been admitted to the hospital in this patient with status post bronchoscopy and left video-assisted thoracoscopic surgery with with resolution of the left upper lobe nodule. on today's evaluation that is 06/04/2022, the patient is afebrile, the patient is currently breathing comfortably on room air patient left-sided chest pain is currently controlled patient denies having any worsening of his depression abdominal pain no diarrhea Objective - Vital Signs Vital signs: Vital Signs Temp 98.2 F 06/04/22 12:00 Pulse 90 06/04/22 12:01 Resp 20 06/04/22 12:00 BP 116/68 06/04/22 12:00 Pulse Ox 91 L 06/04/22 12:00 FiO2 21 06/04/22 08:29 Intake & Output 06/03/22 06/04/22 06/04/22 18:59 06:59 18:59 Intake Total 1520 180 Output Total 1125 2060 480 Balance 395 -2060 -300 Weight 106.1 kg Intake: IV 1400 Oral 120 180 Output: Chest Tube Drainage 80 Chest Tube Left 80 Urine 925 2060 400 Estimated Blood Loss 200 Other: Voiding Method Toilet - Exam GENERAL DESCRIPTION: Middle-aged female lying in bed in no distress RESPIRATORY SYSTEM: Unlabored breathing , decreased breath sounds at bases HEART: S1 S2 regular rate and rhythm , ABDOMEN: Soft , no tenderness EXTREMITIES: No edema feet - Labs CBC & Chem 7: 06/05/22 07:16 06/05/22 07:16 Labs: Abnormal Lab Results - Last 24 Hours (Table) 06/03/22 06/03/22 06/04/22 Range/Units 14:37 16:55 06:53 WBC 24.4 H 19.8 H (3.8-10.6) k/uL RBC 3.75 L (3.80-5.40) m/uL Hgb 11.0 L (11.4-16.0) gm/dL Neutrophils # 23.3 H 17.0 H (1.3-7.7) k/uL Lymphocytes # 0.5 L (1.0-4.8) k/uL Monocytes # 1.3 H (0-1.0) k/uL Sodium 133 L (137-145) mmol/L Potassium 5.4 H (3.5-5.1) mmol/L Carbon Dioxide (22-30) mmol/L Glucose 176 H (74-99) mg/dL C-Reactive Protein (<1.0) mg/dL 06/04/22 Range/Units 06:53 WBC (3.8-10.6) k/uL RBC (3.80-5.40) m/uL Hgb (11.4-16.0) gm/dL Neutrophils # (1.3-7.7) k/uL Lymphocytes # (1.0-4.8) k/uL Monocytes # (0-1.0) k/uL Sodium 135 L (137-145) mmol/L Potassium (3.5-5.1) mmol/L Carbon Dioxide 20 L (22-30) mmol/L Glucose 172 H (74-99) mg/dL C-Reactive Protein 7.2 H (<1.0) mg/dL Microbiology - Last 24 Hours (Table) 06/03/22 10:14 Gram Stain - Preliminary Lung - Left Tissue Culture - Preliminary 06/03/22 10:14 Anaerobic Culture - Preliminary Lung - Left 06/03/22 10:14 Acid Fast Bacilli Culture - Preliminary Lung - Left 06/03/22 10:14 Fungal Culture - Preliminary Lung - Left Assessment and Plan (1) Pulmonary nodules/lesions, multiple Current Visit: No Status: Acute Code(s): R91.8 - OTHER NONSPECIFIC ABNORMAL FINDING OF LUNG FIELD SNOMED Code(s): 598584158 Plan: 1patient with the history of pulmonary nodules with a masslike consolidation changes within the left upper lobe in this patient who is status post wedge resection of the left upper lobe frozen section did shows possible granulomatous disease with a final biopsy report as well as cultures are currently pending. 2 QuantiFERON TB Gold test and fungal serology as well as ARIK level has been ordered and results are currently pending. 3 cultures and histopathology are currently pending Time with Patient: Less than 30
--- NOTE | 2022-06-05 17:34 | P.PN ---
Subjective Progress Note Date: 06/05/22 Principal diagnosis: Pulmonary granuloma Patient is a 57-year female with a past medical history significant for smoking get severe reflux disease and anxiety this patient noticed to have a bilateral pulm nodules on CAT scan patient also history of partial thyroidectomy with signs of sarcoid patient has been admitted to the hospital in this patient with status post bronchoscopy and left video-assisted thoracoscopic surgery with with resolution of the left upper lobe nodule. on today's evaluation that is 06/05/2022, the patient continues to be afebrile, the patient is breathing comfortably on room air patient left-sided chest pain is controlled , patient denies having any nausea no vomiting no abdominal pain no diarrhea Objective - Vital Signs Vital signs: Vital Signs Temp 97.9 F 06/05/22 11:18 Pulse 89 06/05/22 11:40 Resp 18 06/05/22 11:18 BP 115/78 06/05/22 11:18 Pulse Ox 94 L 06/05/22 11:18 FiO2 21 06/04/22 08:29 Intake & Output 06/04/22 06/05/22 06/05/22 18:59 06:59 18:59 Intake Total 540 236 Output Total 1520 1915 950 Balance -980 -1915 -714 Intake: Oral 540 236 Output: Chest Tube Drainage 120 90 Chest Tube Left 120 90 Urine 1400 1825 950 Other: # Voids 2 - Exam GENERAL DESCRIPTION: Middle-aged female lying in bed in no distress RESPIRATORY SYSTEM: Unlabored breathing , decreased breath sounds at bases HEART: S1 S2 regular rate and rhythm , ABDOMEN: Soft , no tenderness EXTREMITIES: No edema feet - Labs CBC & Chem 7: 06/05/22 07:16 06/05/22 07:16 Labs: Abnormal Lab Results - Last 24 Hours (Table) 06/04/22 06/04/22 06/05/22 Range/Units 06:53 06:53 07:16 WBC 13.7 H (3.8-10.6) k/uL Hgb 11.2 L (11.4-16.0) gm/dL ESR 83 H (0-20) mm/hr Glucose (74-99) mg/dL Procalcitonin 0.10 H (0.02-0.09) ng/mL 06/05/22 Range/Units 07:16 WBC (3.8-10.6) k/uL Hgb (11.4-16.0) gm/dL ESR (0-20) mm/hr Glucose 109 H (74-99) mg/dL Procalcitonin (0.02-0.09) ng/mL Microbiology - Last 24 Hours (Table) 06/03/22 10:14 Gram Stain - Preliminary Lung - Left Tissue Culture - Preliminary 06/03/22 10:14 Acid Fast Bacilli Smear - Final Lung - Left Acid Fast Bacilli Culture - Preliminary Assessment and Plan (1) Pulmonary nodules/lesions, multiple Current Visit: No Status: Acute Code(s): R91.8 - OTHER NONSPECIFIC ABNORMAL FINDING OF LUNG FIELD SNOMED Code(s): 304423857 Plan: 1patient with the history of pulmonary nodules with a masslike consolidation changes within the left upper lobe in this patient who is status post wedge resection of the left upper lobe frozen section did shows possible granulomatous disease with a final biopsy report as well as cultures are currently pending. 2 QuantiFERON TB Gold test and fungal serology as well as ARIK level has been ordered and results are currently pending. 3 histopathology did show necrotizing granulomatous inflammation however fungal and AFB stains has been negative cultures are currently pending Time with Patient: Less than 30
[2022-06-05] MEDS ORDERED: SODIUM CHLORIDE 0.65% NASAL SPRAY 44 ML BTL NASAL PRN (18:31)
--- NOTE | 2022-06-05 19:43 | P.ANPRN ---
Procedure Note - Anesthesia - Nerve Block Performed Left Erector Spinae Single Time Out Performed: Yes Date of Procedure: 06/03/22 Procedure Start Time: 06:56 Procedure Stop Time: 06:58 Location of Patient: PreOp Indication: Acute Post-Operative Pain, Requested by Surgeon Sedation Type: Sedate with meaningful contact maintained Preparation: Sterile Prep Position: Prone Needle Types: Pajunk Needle Gauge: 21 Ultrasound used to visualize needle placement: Yes Ultrasound used to observe medication spread: Yes Blood Aspirated: No Pain Paresthesia on Injection Noted: No Resistance on Injection: Normal Image Stored and Saved: Yes Events: Uneventful and Well Tolerated (ropi .5% 15cc plus ns 10cc plus dexamethasone 4mg given at left T6)
[2022-06-05 23:35] VITALS: RESP 18
[2022-06-06] MEDS: HYDROcodone/APAP 7.5-325MG 1 EACH TAB PO PRN ×2 (02:35→08:45)
[2022-06-06] MEDS: PANTOPRAZOLE 40 MG TABLET PO SCH (06:07)
[2022-06-06] MEDS: KETOROLAC 15 MG/ML 1 ML VIAL IVP SCH ×2 (06:07→12:18)
[2022-06-06 07:56] LABS: HCT 33.1 % (34.0-46.0); HGB 10.7 gm/dL (11.4-16.0); Hypochromasia Slight; MCH 29.4 pg (25.0-35.0); MCHC 32.5 g/dL (31.0-37.0); MCV 90.5 fL (80.0-100.0); Platelet Count 308 k/uL (150-450); RBC 3.66 m/uL (3.80-5.40); RDW 13.9 % (11.5-15.5); WBC 10.6 k/uL (3.8-10.6)
[2022-06-06 08:01] LABS: African American GFR (CKD) >90 (>60 ml/min/1.73 sqM); Anion Gap 7 mmol/L; Blood Urea Nitrogen 9 mg/dL (7-17); Calcium 8.6 mg/dL (8.4-10.2); Carbon Dioxide 25 mmol/L (22-30); Chloride 104 mmol/L (98-107); Glucose 117 mg/dL (74-99); Non-African American GFR(CKD) >90 (>60 ml/min/1.73 sqM); Potassium 4.7 mmol/L (3.5-5.1); Sodium 136 mmol/L (137-145)
--- NOTE | 2022-06-06 08:08 | XR ---
EXAMINATION TYPE: XR chest 2V DATE OF EXAM: 06/06/2022 COMPARISON: 06/05/2022 TECHNIQUE: PA and lateral views submitted. HISTORY: . Postop FINDINGS: Bilateral infiltrate and small effusion. Heart size stable. Left- sided chest tube noted and there is a left-sided pneumothorax measuring approximately 5% pneumothorax no definite mediastinal deviation. IMPRESSION: 1. Interval reduction in size of the left-sided pneumothorax now measuring approximately 5% pneumotho rax. 2. Stable bilateral infiltrates.
[2022-06-06] MEDS: IPRATROPIUM-ALBUTEROL 3 ML NEB IH SCH ×2 (08:18→11:39)
[2022-06-06] MEDS: FORMOTEROL FUMARATE 20 MCG/2 ML NEBU INHALATION SCH (08:18)
[2022-06-06] MEDS: SENNOSIDES-DOCUSATE SODIUM 1 EACH TAB PO SCH (08:45)
[2022-06-06] MEDS: HEPARIN SODIUM,PORCINE/PF 5,000 UNIT/0.5 ML SYRINGE SQ SCH (08:46)
--- NOTE | 2022-06-06 08:49 | P.PN ---
Subjective Progress Note Date: 06/06/22 Principal diagnosis: Bilateral pulmonary nodules. Previous medical history of fibromyalgia, anxiety/depression, Covid infection in 11/2021, paroxysmal atrial fibrillation which resolved after partial thyroidectomy, possible sarcoidosis, current tobacco dependence POD #3 bronchoscopy, left video-assisted thoracoscopic surgery, wedge resection of the left upper lobe nodule, intercostal nerve block at 3 levels: 7, 9, 5 The patient was seen and examined sitting up in bed on the cardiac stepdown unit in no acute distress. Does state pain is controlled with current medication regimen although it does hurt when she coughs, denies shortness of breath. Currently on room air with oxygen saturation in the mid 90s, able to achieve 1000 mL on incentive spirometry. Left-sided chest tube present to [facility], no air leak present this morning. Patient states she has been up and ambulatory in the hallway without difficulty. Anxious to have chest tube removed and be able to go home. No other new concerns. Objective - Vital Signs Vital signs: Vital Signs Temp 98.3 F 06/06/22 03:35 Pulse 99 06/06/22 08:34 Resp 18 06/06/22 08:34 BP 97/61 06/06/22 03:35 Pulse Ox 94 L 06/06/22 08:18 FiO2 21 06/04/22 08:29 Intake & Output 06/05/22 06/06/22 06/06/22 18:59 06:59 18:59 Intake Total 236 120 Output Total 1910 2570 Balance -8834 -2570 120 Intake: Oral 236 120 Output: Chest Tube Drainage 60 70 Chest Tube Left 60 70 Urine 1850 2500 Other: # Voids 2 2 - Exam CONSTITUTIONAL: Appears comfortable, cooperative, no acute distress RESPIRATORY: Lungs sounds diminished bilaterally. Respirations even, nonlabored. Currently on room air with oxygen saturation 93%. Able to achieve 1000 mL on incentive spirometry. Strong cough. CARDIOVASCULAR: S1, S2 present. Regular rate and rhythm, sinus rhythm on telemetry. Palpable peripheral pulses bilaterally. No edema present. No calf pain or tenderness noted. SCDs present. GASTROINTESTINAL: Abdomen soft, nontender, nondistended. Active bowel sounds present 4 quadrants. Tolerating diet. Positive flatus, negative bowel movemen t GENITOURINARY: Continues to void INTEGUMENTARY: Skin is warm and dry. Thoracic incisions well approximated and covered with dry intact dressing. NEUROLOGIC: Cranial nerves II through XII intact MUSKULOSKELETAL: Able to move all extremities, strength equal bilaterally, gait normal PSYCHIATRIC: Alert and oriented to person place and time, appropriate affect, intact judgment and insight INVASIVE LINES AND TUBES: Left pleural chest tubes present to waterseal, no air leak present this morning, 100 mL serosanguineous drainage in the last 24 hours - Allied health notes Allied health notes reviewed: nursing - Labs CBC & Chem 7: 06/06/22 07:09 06/06/22 07:09 Labs: Abnormal Lab Results - Last 24 Hours (Table) 06/05/22 06/06/22 06/06/22 Range/Units 07:16 07:09 07:09 RBC 3.66 L (3.80-5.40) m/uL Hgb 10.7 L (11.4-16.0) gm/dL Hct 33.1 L (34.0-46.0) % Sodium 136 L (137-145) mmol/L Glucose 109 H 117 H (74-99) mg/dL Microbiology - Last 24 Hours (Table) 06/03/22 10:14 Anaerobic Culture - Preliminary Lung - Left 06/03/22 10:14 Gram Stain - Preliminary Lung - Left Tissue Culture - Preliminary - Imaging and Cardiology Chest x-ray: report reviewed, image reviewed Assessment and Plan Assessment: 1. Bilateral pulmonary nodules, status post bronchoscopy, left video-assisted thoracoscopic surgery, wedge resection of the left upper lobe nodule, frozen section positive for granulomatous disease, final pathology consistent with nodular and necrotizing granulomatous inflammation concerning for infectious process, no malignancy identified 2. History of fibromyalgia 3. Anxiety/depression 4. Covid infection in 11/2021 5. Paroxysmal atrial fibrillation which resolved after partial thyroidectomy 6. Possible sarcoidosis 7. Current tobacco dependence Plan: 1. Will discontinue chest tube. Repeat chest x-ray 2 hours post removal, if stable will discharge to home 2. Encourage incentive spirometry is 10 times every hour while awake. Bronchodilators per pulmonology 3. Increase activity, ambulate as tolerated 4. Infectious disease consulted, appreciate recommendations 5. Pain control with current medication regimen 6. Continue home medications 7. More recommendations to follow
--- NOTE | 2022-06-06 12:43 | XR ---
EXAMINATION TYPE: XR chest 2V DATE OF EXAM: 06/06/2022 COMPARISON: 06/06/2022 TECHNIQUE: PA and lateral views submitted. HISTORY: Chest tube removal FINDINGS: Bilateral infiltrate small left effusion persists. There is approximate 15% left-sided pneumothorax. No definite mediastinal deviation. Heart size stable. A chest tube removed. Arthropathy of the should ers. IMPRESSION: 1. Interval increase in size of pneumothorax post chest tube removal now measuring 15-20%.
--- NOTE | 2022-06-06 13:02 | P.DS ---
Providers Date of admission: 06/03/22 05:33 Expected date of discharge: 06/06/22 Attending physician: Neymar Mckeon MD Consults: 06/03/22 12:32 Consult Physician Routine Consulting Provider: Rafi Nolasco Consult Reason/Comments: Pulmonary Management Do you want consulting provider notified?: Already Contacted Consult Physician Routine Consulting Provider: Vani Desai Consult Reason/Comments: Granuloma Do you want consulting provider notified?: Yes Primary care physician: Sav Garrido [facility] Hospital Course: FINAL DIAGNOSIS: 1. Bilateral pulmonary nodules, final pathology consistent with nodular and necrotizing granulomatous inflammation concerning for infectious process, no malignancy identified 2. History of fibromyalgia 3. History of anxiety/depression 4. Covid infection in November 2021 5. Paroxysmal atrial fibrillation resolved after partial thyroidectomy 6. Possible sarcoidosis 7. Current tobacco dependence PRINCIPAL PROCEDURE: 1. Bronchoscopy 2. Left video-assisted thoracoscopic surgery 3. Wedge resection of the left upper lobe nodule 4. Intercostal nerve block at 3 levels: 7, 9, 5 HISTORY OF PRESENT ILLNESS: This is a 57-year-old female patient who follows outpatient with Dr. Garrido for primary care and Dr. Raman for pulmonology. Apparently 3 years ago she was having hip pain and her workup revealed thyroid issues as well as paroxysmal atrial fibrillation. She subsequently had a thyroid ultrasound and lobectomy which demonstrated signs of sarcoidosis. She was referred to Dr. Raman who performed a computed tomography scan of the chest revealing bilateral pulmonary nodules. Follow-up PET/CT demonstrated FDG avidity in the bilateral nodules. The patient had navigational bronchoscopy with biopsy which was inconclusive. Symptom welsh she complained of daily chronic debilitating cough. The patient was referred to Dr. Mckeon from cardiothoracic surgery. She was recommended to undergo bronchoscopy with left VATS and wedge resection of the left upper lobe nodule for diagnosis. The usual perioperative course was discussed in detail with the patient, all risks and benefits were explained, all questions were answered, and consent was obtained to proceed with surgery. The patient was scheduled for surgery at the earliest possible date after obtaining cardiac clearance. HOSPITAL COURSE: The patient was brought to the hospital on 06/03/22, taken to the preoperative area, prepared in the usual fashion, and subsequently taken to the operating room where Dr. Mckeon performed a bronchoscopy with left VATS and wedge resection of a left upper lobe nodule. Upon completion of surgery the patient was extubated and taken to the recovery room for hemodynamic monitoring. She was eventually admitted to 3 S. cardiac stepdown unit for further monitoring. Her oxygen was titrated down, she was tolerating oral diet, her pain was controlled, and her chest tube was discontinued on postoperative day #3. Follow-up chest x-ray was stable and she was ready to be discharged to home on postoperative day #3. She received written and verbal instruction regarding her medications, activity restrictions, signs and symptoms requiring physician notification, and follow-up appointments. Patient Condition at Discharge: Stable Plan - Discharge Summary Discharge Rx Participant: Yes New Discharge Prescriptions: Continue diphenhydrAMINE [Benadryl] 25 mg PO HS PRN PRN Reason: Insomnia Omeprazole 20 mg PO DAILY PRN PRN Reason: Heartburn HYDROcodone/APAP 7.5-325MG [Keene 7.5-325] 1 tab PO DIRECTED PRN PRN Reason: Pain DULoxetine HCL [Cymbalta] 30 mg PO W/SUPPER methocarbamoL [Methocarbamol] 500 mg PO QID PRN PRN Reason: Pain Aspirin/Acetaminophen/Caffeine [Excedrin Migraine Caplet] 1 each PO DIRECTED PRN PRN Reason: Migraine Headache Diclofenac Sodium [Voltaren] 75 mg PO BID Discharge Medication List Aspirin/Acetaminophen/Caffeine [Excedrin Migraine Caplet] 1 each PO DIRECTED PRN 08/23/21 [History] DULoxetine HCL [Cymbalta] 30 mg PO W/SUPPER 08/23/21 [History] Omeprazole 20 mg PO DAILY PRN 08/23/21 [History] diphenhydrAMINE [Benadryl] 25 mg PO HS PRN 08/23/21 [History] methocarbamoL [Methocarbamol] 500 mg PO QID PRN 08/23/21 [History] Diclofenac Sodium [Voltaren] 75 mg PO BID 05/29/22 [History] HYDROcodone/APAP 7.5-325MG [Keene 7.5-325] 1 tab PO DIRECTED PRN 05/29/22 [History] Follow up Appointment(s)/Referral(s): Sav Garrido MD [Primary Care Provider] - As Needed Neymar Mckeon MD [STAFF PHYSICIAN] - 06/18/22 2:00 pm Vani Desai MD [STAFF PHYSICIAN] - 06/23/22 2:45 pm Danilo Raman MD [STAFF PHYSICIAN] - 06/25/22 9:15 am Activity/Diet/Wound Care/Special Instructions: DISCHARGE INSTRUCTIONS: 1. No driving for 2 weeks, or until physician gives their ok. 2. No lifting, pushing, or pulling more than 10 pounds for 2 weeks. The physician will advise of any restriction changes. 3. Continue pain control per as needed orders. Alternate acetaminophen (Tylenol) and ibuprofen (Motrin/Advil) for pain. 4. Continue with incentive spirometry and splinting until otherwise directed by the physician. 5. Leave chest tube dressing for 48 hours. After that, remove all dressings and shower daily. 6. Routine incision care. No powders, lotions, ointments on incisions. 7. Please call surgeon/HYPOID GEAR GENERATOR for temp greater than 101 F or purulent drainage from incisions. 8. Smoking cessation counseling and program information provided. NO SMOKING! Discharge Disposition: HOME SELF-CARE
[2022-06-06 13:14] VITALS: BP 111/75; PULSE 98; TEMP 98
--- NOTE | 2022-06-06 14:07 | P.PN ---
Subjective Progress Note Date: 06/06/22 Principal diagnosis: Status post left video-assisted thoracoscopic surgery, wedge resection of left upper lobe nodule, postoperative day #3 This is a 57-year-old female who normally sees Dr. Raman for presumptive sarcoidosis. Patient underwent previous bronchoscopy and transbronchial biopsy done by Dr. Raman in August of 2021. Patient had multiple transbronchial biopsies of right middle lobe, right lower lobe and left upper lobe she also had bronchoalveolar lavage of the right middle lobe, and transbronchial needle aspiration of station 4R and station 7 lymph node. Biopsies back then were nondiagnostic of neoplasm or diarrhea lumbar this inflammation. CT of the chest back then showed Multiple subpleural nodules and mediastinal adenopathy. At one point the patient had partial thyroidectomy and that was diagnostic of sarcoidosis. Patient has been following up with Dr. Raman, and the last time she saw him was in February of 2022. Repeat CT of the chest in February showed increase in the size of the left midlung masslike consolidation as well as a new masslike areas within the right lower lobe adjacent to prior cavitary lesion. PET scan showed slight uptake and hypermetabolic activity. Hence the patient was advised to have surgical referral. Yesterday the patient underwent bronchoscopy, left video-assisted wedge resection of left upper lobe nodule. And the initial frozen section diagnosis seems to be noncaseating granuloma consistent with sarcoid however cultures are pending including fungal cultures and TB cultures. Considering her complex pulmonary history and possible sarcoidosis, this consult was initiated. According to the patient she was treated with prednisone in the past, and the last time she took prednisone was 8 months ago. Did not receive any other treatment for her sarcoidosis except prednisone Reevaluated today on 06/05/22, patient continues to do well, chest tube remains in place, her pneumothorax is improved, and she has a minimal air leak noted in the pleural VAC. Patient is otherwise relatively asymptomatic. WBC count is 13.7 hemoglobin 11.2 electrolytes are normal and renal profile is normal. Reevaluated today on 06/06/22, patient is doing great, her left-sided chest tube has been removed. She is being considered for discharge today. Follow-up chest x-ray post removal of chest tube, did show slight increase in her left lateral pneumothorax. It is probably less than 10% , thoracic surgery will likely decided to discharge the patient home and follow up on outpatient basis. Objective - Vital Signs Vital signs: Vital Signs Temp 98.0 F 06/06/22 12:00 Pulse 98 06/06/22 12:00 Resp 18 06/06/22 12:00 BP 111/75 06/06/22 12:00 Pulse Ox 93 L 06/06/22 12:00 FiO2 21 06/04/22 08:29 Intake & Output 06/05/22 06/06/22 06/06/22 18:59 06:59 18:59 Intake Total 236 120 Output Total 1910 2570 1600 Balance -8590 -4240 -1480 Intake: Oral 236 120 Output: Chest Tube Drainage 60 70 Chest Tube Left 60 70 Urine 1850 2500 1600 Other: Voiding Method Toilet # Voids 2 2 - Exam Physical Exam: Revealed 57-year-old female in no distress. Head: Atraumatic, normocephalic. HEENT:[Neck is supple.] [No neck masses.] [No thyromegaly.] [No JVD.] Chest: [Clear throughout, no crackles, no rhonchi, no wheezes.] Left-sided chest tube has been removed Cardiac Exam: [Normal S1 and S2, no S3 gallop, no murmur.] Abdomen: [Soft, nontender, no megaly, no rebound, no guarding, normal bowel sounds.] Extremities: [No clubbing, no edema, no cyanosis.] Neurological Exam: [No focal neurologic deficit.] Alert oriented 3. Psychiatric: Normal mood affect and normal mental status examination. Skin: No rashes. Musculoskeletal: No deformities and no limitation in range of motion. - Labs CBC & Chem 7: 06/06/22 07:09 06/06/22 07:09 Labs: Abnormal Lab Results - Last 24 Hours (Table) 06/06/22 06/06/22 Range/Units 07:09 07:09 RBC 3.66 L (3.80-5.40) m/uL Hgb 10.7 L (11.4-16.0) gm/dL Hct 33.1 L (34.0-46.0) % Sodium 136 L (137-145) mmol/L Glucose 117 H (74-99) mg/dL Microbiology - Last 24 Hours (Table) 06/03/22 10:14 Gram Stain - Preliminary Lung - Left Tissue Culture - Preliminary 06/03/22 10:14 Anaerobic Culture - Preliminary Lung - Left Assessment and Plan Assessment: Impression: Status post left video-assisted thoracoscopic surgery, wedge resection of left upper lobe nodule, postoperative day #3 Suspect sarcoidosis. Chronic atrial fibrillation Fibromyalgia History of hypothyroidism Postoperative pneumothorax, expected Recommendation: Agree with discharge planning if cleared by surgery on the case. Follow-up on outpatient basis with Dr. Raman Time with Patient: Less than 30
[2022-06-08 23:17] LABS: Histoplasma Abs by ID Not Detected (Not Detected); Histoplasma Abs by Mycelia, CF <1:8 (<1:8)
== END 2022-06-06 14:44 | disposition home or self-care (01) | DRG 167 ==
LOC: 2ORMAIN 05:33 → 3SCARD 10:25
PROVIDERS: ADMIT Thoracic Surgery (Cardiothoracic Vascular Surgery); ATTEND Thoracic Surgery (Cardiothoracic Vascular Surgery)
PROC: 0BJ08ZZ Inspection of Tracheobronchial Tree, Via Natural or Artificial Opening Endoscopic (ICD-10-PCS; 2022-06-03)
PROC: 0BBG4ZX Excision of Left Upper Lung Lobe, Percutaneous Endoscopic Approach, Diagnostic (ICD-10-PCS; principal; 2022-06-03 07:30)
DX: J84.10 Pulmonary fibrosis, unspecified (principal); I48.20 Chronic atrial fibrillation, unspecified; J95.811 Postprocedural pneumothorax; E78.5 Hyperlipidemia, unspecified; J44.9 Chronic obstructive pulmonary disease, unspecified; F32.A Depression, unspecified; F17.210 Nicotine dependence, cigarettes, uncomplicated; F41.9 Anxiety disorder, unspecified; Z96.642 Presence of left artificial hip joint; M79.7 Fibromyalgia; Z86.16 Personal history of COVID-19; Z79.899 Other long term (current) drug therapy; Z98.890 Other specified postprocedural states
CPT/HCPCS: 64999; 71045; 71046; 80048; 80053; 84145; 85025; 85027; 85652; 86140; 86480; 86606; 86698; 86850; 86900; 86901; 87070; 87075; 87102; 87116; 87205; 87206; 88305; 88307; 88309; 88312; 88331; 94640; 94760

== ENCOUNTER 2022-06-09 11:42 | Inpatient (IN) | payer OTHER ==
[2022-06-09 12:14] LABS: Basophils % (A) 0 %; Eosinophils # (A) 0.2 k/uL (0-0.7); Eosinophils % (A) 2 %; HCT 37.5 % (34.0-46.0); HGB 12.5 gm/dL (11.4-16.0); Lymphocytes # (A) 1.1 k/uL (1.0-4.8); Lymphocytes % (A) 7 %; MCH 29.3 pg (25.0-35.0); MCHC 33.2 g/dL (31.0-37.0); MCV 88.3 fL (80.0-100.0); Mean Platelet Volume 8.2; Monocytes # (A) 0.5 k/uL (0-1.0); Monocytes % (A) 3 %; Neutrophils % (A) 87 %; Platelet Count 343 k/uL (150-450); RBC 4.25 m/uL (3.80-5.40); RDW 14.2 % (11.5-15.5); WBC 16.1 k/uL (3.8-10.6)
--- NOTE | 2022-06-09 12:21 | XR ---
EXAMINATION TYPE: XR chest 1V portable DATE OF EXAM: 06/09/2022 COMPARISON: 06/06/2000 HISTORY: Shortness of breath TECHNIQUE: Single frontal view of the chest is obtained. FINDINGS: Diffuse severe subcutaneous emphysema greater in the left with bilateral infiltrates. Ther e is a left-sided pneumothorax measuring approximately 30%. Could not exclude a tension pneumothorax. Heart size is stable. Report called to ER physician 12:18 PM 06/09/2022. Interstitial pattern seen w ith a new area of nodular consolidation right lung base. IMPRESSION: 1. 30% left-sided pneumothorax. Correlate for tension pneumothorax with slight mediastinal deviation from left to right. 2. Interval development of diffuse subcutaneous emphysema. 3. Interval development of a nodular area of consolidation right lower lung base.
[2022-06-09] MEDS ORDERED: LIDOCAINE 1% INJ 10MG/ML (30 ML VIAL-PF) SQ ONE (12:22)
[2022-06-09] MEDS ORDERED: PROPOFOL 10 MG/ML 20 ML VIAL IV ONE (12:24)
[2022-06-09] MEDS ORDERED: HYDROmorphone 1 MG/ML 1 ML SYRINGE IVP STA (12:24)
[2022-06-09 12:36] LABS: INR 0.9 (<1.2); Partial Thromboplastin Time 22.7 sec (22.0-30.0)
[2022-06-09 12:41] LABS: ALT 27 U/L (4-34); African American GFR (CKD) >90 (>60 ml/min/1.73 sqM); Albumin 3.6 g/dL (3.5-5.0); Anion Gap 5 mmol/L; Blood Urea Nitrogen 10 mg/dL (7-17); Calcium 8.2 mg/dL (8.4-10.2); Carbon Dioxide 21 mmol/L (22-30); Chloride 105 mmol/L (98-107); Glucose 124 mg/dL (74-99); Non-African American GFR(CKD) >90 (>60 ml/min/1.73 sqM); Sodium 131 mmol/L (137-145); Total Bilirubin 0.4 mg/dL (0.2-1.3); Total Protein 7.1 g/dL (6.3-8.2)
[2022-06-09 12:47] LABS: AST 37 U/L (14-36); Alkaline Phosphatase 112 U/L (38-126); Potassium 5.8 mmol/L (3.5-5.1)
[2022-06-09] MEDS ORDERED: LORazepam 2 MG/ML INJ IV STA (12:59)
--- NOTE | 2022-06-09 13:03 | ED ---
SOB HPI - General Chief Complaint: Shortness of Breath Stated Complaint: SOB, left side body swelling Time Seen by Provider: 06/09/22 12:00 Source: patient, RN notes reviewed Mode of arrival: wheelchair Limitations: no limitations - History of Present Illness Initial Comments: 57-year-old female sent to the emergency department by her primary care physi robina after a follow-up. She had a lung biopsy done for assessment of possible sarcoidosis. She was discharged from this hospital on the of this month. She states she started developing swelling to her chest left breast area and neck with some shortness of breath earlier this morning. She was assessed by her doctor who did find evidence of diminished breath sounds on the left with evidence of subcutaneous emphysema extending up into the neck. Patient self denies any difficulty with inspiration of air she does have some chest pain in the left side she states she had 2 sites were biopsy in 1 in the inframammary crease that was the chest tube site that was removed prior to her discharge. She's had no fevers chills nausea vomiting sweats. She states she is a smoker but did quit after the procedure. MD Complaint: shortness of breath - Related Data Home Medications Medication Instructions Recorded Confirmed Omeprazole 20 mg PO DAILY PRN 08/23/21 06/09/22 methocarbamoL [Methocarbamol] 500 mg PO QID PRN 08/23/21 06/09/22 Diclofenac Sodium [Voltaren] 75 mg PO BID 05/29/22 06/09/22 HYDROcodone/APAP 7.5-325MG [[place] 1 tab PO Q6H PRN 05/29/22 06/09/22 7.5-325] ALPRAZolam [Xanax] 0.25 mg PO BID PRN 06/09/22 06/09/22 DULoxetine HCL [Cymbalta] 60 mg PO W/SUPPER 06/09/22 06/09/22 Allergies Allergy/AdvReac Type Severity Reaction Status Date / Time No Known Allergies Allergy Verified 06/09/22 13:58 Review of Systems ROS Statement: Those systems with pertinent positive or pertinent negative responses have been documented in the HPI. ROS Other: All systems not noted in ROS Statement are negative. Past Medical History Past Medical History: Atrial Fibrillation, COPD, Fibromyalgia, GERD/Reflux, Osteoarthritis (OA), Thyroid Disorder Additional Past Medical History / Comment(s): STATES A-FIB RESOLVED WITH THYROID SURGERY (HAD GOITER), "BULGING DISC & TEAR", MIGRAINES, "EXHAUSTED ALL THE TIME", SOB, SEASONAL ALLERGIES. History of Any Multi-Drug Resistant Organisms: None Reported Past Surgical History: Adenoidectomy, Section, Hysterectomy, Joint Replacement, Tonsillectomy Additional Past Surgical History / Comment(s): LEFT THYROIDECTOMY, bronchoscopy, right hip replacemnet. Past Anesthesia/Blood Transfusion Reactions: Previous Problems w/ Anesthesia, Motion Sickness, Postoperative Nausea & Vomiting (PONV) Additional Past Anesthesia/Blood Transfusion Reaction / Comment(s): STATES BP DROPPED AND THEY HAD TO PUSH FLUIDS WITH THYROID SURGERY. SISTER PONV. Past Psychological History: Anxiety Smoking Status: Current every day smoker Past Alcohol Use History: Occasional Past Drug Use History: None Reported - Past Family History Mother Family Medical History: No Reported History General Exam - General Exam Comments Initial Comments: This is a well-developed well-nourished awake alert oriented for female Limitations: no limitations General appearance: alert, anxious Head exam: Present: atraumatic, normocephalic, normal inspection Eye exam: Present: normal appearance, PERRL, EOMI. Absent: scleral icterus, conjunctival injection, periorbital swelling ENT exam: Present: normal exam, mucous membranes moist Neck exam: Present: full ROM, other (Evidence of subcutaneous emphysema especially on the left side extending around anteriorly. No stridor however. He does seem a demonstrate slight muffling of the voice sounds however.). Absent: tenderness, meningismus, lymphadenopathy Respiratory exam: Present: decreased breath sounds (Diminished breath sounds left side compared to the right subcutaneous emphysema noted on chest wall especially on the left with crepitation.). Absent: respiratory distress, wheezes, rales, rhonchi, stridor Cardiovascular Exam: Present: normal rhythm, tachycardia, normal heart sounds. Absent: systolic murmur, diastolic murmur, rubs, gallop, clicks GI/Abdominal exam: Present: soft, normal bowel sounds. Absent: distended, tenderness, guarding, rebound, rigid Extremities exam: Present: normal inspection, full ROM, normal capillary refill. Absent: tenderness, pedal edema, joint swelling, calf tenderness Back exam: Present: normal inspection Neurological exam: Present: alert, oriented X3, CN II-XII intact Psychiatric exam: Present: normal affect, normal mood Skin exam: Present: warm, dry, intact, normal color. Absent: rash Course Vital Signs 06/09/22 06/09/22 06/09/22 11:49 12:45 12:50 Temperature 97.8 F Pulse Rate 114 H 103 H 105 H Respiratory 20 19 24 Rate Blood Pressure 88/50 107/64 136/90 O2 Sat by Pulse 94 L 99 100 Oximetry 06/09/22 06/09/22 06/09/22 12:55 13:00 13:15 Temperature Pulse Rate 103 H 105 H 104 H Respiratory 22 21 23 Rate Blood Pressure 114/99 95/82 124/89 O2 Sat by Pulse 95 95 100 Oximetry 06/09/22 06/09/22 13:30 13:45 Temperature Pulse Rate 103 H 102 H Respiratory 22 21 Rate Blood Pressure 115/70 137/86 O2 Sat by Pulse 100 98 Oximetry - Reevaluation(s) Reevaluation #1: 06/09/22 14:00 Post tube thoracostomy showed evidence of increased aeration on the left lung patient is showing somewhat better with respect to breathing ability. Reevaluation #2: 06/09/22 14:00 Post tube thoracostomy x-ray shows improvement of the pneumothorax. 06/09/22 14:01 This was read by me. 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: Identity, Site, Procedure, Consent Site: Left chest Site Marked: Yes Site Verified With Patient/Guardian: Yes Final Confirmation: Procedure, Site - Chest Tube Insertion Consent Obtained: written consent Side of Procedure: left Indication: Pneumothorax Placed on monitor/pulse oximetry: Yes Site Prep: Povidone-Iodine, Chloroprep Local Anesthesia: Lidocaine 1% Amount (mLs): 10 Insertion Site: 5th Intercostal Space Scalpel: #11 Open into Pleural Space Using: Trocar Tube Size (Montserratian): 28 Returns: Air, Other (Small amount of serous-appearing fluid) Sutured in Place: Yes (0 Ethibond) Dressing Applied: Petroleum Gauze, 4x4 Attached to Suction: Yes Type of Suction: Pleuravac Repeat X-ray Results: Lung Inflated Patient Tolerated Procedure: well (No complications) - Procedural Sedation Procedural Sedation Start Time: 12:45 Procedural Sedation Stop Time: 12:50 Indications: other (Tube thoracostomy) ASA Class: II Mallampati Airway Score: 2 Preparation: monitoring tech applied, pulse oximeter, capnometry used, supplemental O2 applied, reversal agents at bedside, suction/airway equipment at bedside, IV secured IV Propofol Dose (mgs): 100 Complications: none Patient Tolerated Procedure: well Medical Decision Making - Medical Decision Making I did discuss case with Livia Moreno covering Dr. Mckeon also with Dr. Asher. he'll be admitted to the telemetry unit for close observation. She currently is awake alert oriented 4 breathing well no evidence of stridor JVD or bruits - Lab Data Result diagrams: 06/09/22 12:03 06/09/22 12:03 Lab Results 06/09/22 06/09/22 06/09/22 Range/Units 12:03 12:03 12:03 WBC 16.1 H (3.8-10.6) k/uL RBC 4.25 (3.80-5.40) m/uL Hgb 12.5 (11.4-16.0) gm/dL Hct 37.5 (34.0-46.0) % MCV 88.3 (80.0-100.0) fL MCH 29.3 (25.0-35.0) pg MCHC 33.2 (31.0-37.0) g/dL RDW 14.2 (11.5-15.5) % Plt Count 343 (150-450) k/uL MPV 8.2 Neutrophils % 87 % Lymphocytes % 7 % Monocytes % 3 % Eosinophils % 2 % Basophils % 0 % Neutrophils # 14.0 H (1.3-7.7) k/uL Lymphocytes # 1.1 (1.0-4.8) k/uL Monocytes # 0.5 (0-1.0) k/uL Eosinophils # 0.2 (0-0.7) k/uL Basophils # 0.0 (0-0.2) k/uL PT 10.0 (9.0-12.0) sec INR 0.9 (<1.2) APTT 22.7 (22.0-30.0) sec Sodium 131 L (137-145) mmol/L Potassium 5.8 H (3.5-5.1) mmol/L Chloride 105 (98-107) mmol/L Carbon Dioxide 21 L (22-30) mmol/L Anion Gap 5 mmol/L BUN 10 (7-17) mg/dL Creatinine 0.60 (0.52-1.04) mg/dL Est GFR (CKD-EPI)AfAm >90 (>60 ml/min/1.73 sqM) Est GFR (CKD-EPI)NonAf >90 (>60 ml/min/1.73 sqM) Glucose 124 H (74-99) mg/dL Plasma Lactic Acid Brandon (0.7-2.0) mmol/L Calcium 8.2 L (8.4-10.2) mg/dL Magnesium 2.0 (1.6-2.3) mg/dL Total Bilirubin 0.4 (0.2-1.3) mg/dL AST 37 H (14-36) U/L ALT 27 (4-34) U/L Alkaline Phosphatase 112 (38-126) U/L Troponin I (0.000-0.034) ng/mL NT-Pro-B Natriuret Pep pg/mL Total Protein 7.1 (6.3-8.2) g/dL Albumin 3.6 (3.5-5.0) g/dL 06/09/22 06/09/22 06/09/22 Range/Units 12:03 12:03 12:03 WBC (3.8-10.6) k/uL RBC (3.80-5.40) m/uL Hgb (11.4-16.0) gm/dL Hct (34.0-46.0) % MCV (80.0-100.0) fL MCH (25.0-35.0) pg MCHC (31.0-37.0) g/dL RDW (11.5-15.5) % Plt Count (150-450) k/uL MPV Neutrophils % % Lymphocytes % % Monocytes % % Eosinophils % % Basophils % % Neutrophils # (1.3-7.7) k/uL Lymphocytes # (1.0-4.8) k/uL Monocytes # (0-1.0) k/uL Eosinophils # (0-0.7) k/uL Basophils # (0-0.2) k/uL PT (9.0-12.0) sec INR (<1.2) APTT (22.0-30.0) sec Sodium (137-145) mmol/L Potassium (3.5-5.1) mmol/L Chloride (98-107) mmol/L Carbon Dioxide (22-30) mmol/L Anion Gap mmol/L BUN (7-17) mg/dL Creatinine (0.52-1.04) mg/dL Est GFR (CKD-EPI)AfAm (>60 ml/min/1.73 sqM) Est GFR (CKD-EPI)NonAf (>60 ml/min/1.73 sqM) Glucose (74-99) mg/dL Plasma Lactic Acid Brandon 1.2 (0.7-2.0) mmol/L Calcium (8.4-10.2) mg/dL Magnesium (1.6-2.3) mg/dL Total Bilirubin (0.2-1.3) mg/dL AST (14-36) U/L ALT (4-34) U/L Alkaline Phosphatase (38-126) U/L Troponin I <0.012 (0.000-0.034) ng/mL NT-Pro-B Natriuret Pep 37 pg/mL Total Protein (6.3-8.2) g/dL Albumin (3.5-5.0) g/dL - EKG Data -: EKG Interpreted by Me EKG Comments: I did repeat EKG shows sinus tachycardia 113. Interval 145 QRS duration 81 QT since QTC 339/[address] configuration artifact present - Radiology Data Radiology results: image reviewed (I did review the initial chest x-ray does show evidence of left sided pneumothorax approximately 30% evidence of subcutaneous emphysema.) Critical Care Time Critical Care Time: Yes Total Critical Care Time: 31 Critical Care Time: Critical care time included the initial presentation with history physical review of old charting multiple discussions with the patient as well as multiple evaluations of the patient discussed with family members review of old charting was available discussion with the attending physician discussion with the admitting service and with Dr. Asher. This is not included procedural time Disposition Clinical Impression: Spontaneous pneumothorax, Subcutaneous emphysema, Tachycardia Disposition: ADMITTED IP TO THIS [facility] Condition: Fair Referrals: Sav Garrido MD [Primary Care Provider] - 1-2 days Decision Date: 06/09/22 Decision Time: 14:53
--- NOTE | 2022-06-09 13:18 | XR ---
EXAMINATION TYPE: XR chest 1V confirm line [facility] DATE OF EXAM: 06/09/2022 COMPARISON: 06/09/2022 HISTORY: Chest tube placement TECHNIQUE: Single frontal view of the chest is obtained. FINDINGS: Severe diffuse subcutaneous emphysema. There is a persistent left-sided pneumothorax which appears improved now measuring approximately 15%. Diffuse interstitial pattern. Basilar consolidatio n seen. Heart size normal. IMPRESSION: 1. Severe diffuse subcutaneous emphysema with interval improvement in size of the pneumothorax now me asuring approximately 15%. 2. Bilateral airspace disease stable.
[2022-06-09] MEDS ORDERED: HYDROmorphone 0.5 MG/0.5 ML SYRINGE IVP STA (13:35)
[2022-06-09] MEDS ORDERED: NALOXONE 0.4 MG/ML 1 ML VIAL IV PRN (14:56)
[2022-06-09] MEDS ORDERED: ACETAMINOPHEN TAB 325 MG TAB PO PRN (14:56)
[2022-06-09] MEDS ORDERED: ALPRAZolam 0.25 MG TAB PO PRN (14:58)
[2022-06-09] MEDS ORDERED: methocarbamoL 500 MG TAB PO PRN (14:58)
[2022-06-09] MEDS ORDERED: SODIUM CHLORIDE 0.9% 1,000 ML IV SCH (15:00)
[2022-06-09] MEDS ORDERED: SODIUM CHLORIDE 0.65% NASAL SPRAY 44 ML BTL NASAL PRN (15:28)
[2022-06-09] MEDS: HYDROmorphone 0.5 MG/0.5 ML SYRINGE IVP PRN (16:33)
[2022-06-09] MEDS: DULoxetine HCL 60 MG CAPSULE.DR PO SCH (16:43)
--- NOTE | 2022-06-09 16:54 | P.GSHP ---
History of Present Illness H&P Date: 06/09/22 Chief Complaint: Shortness of breath This is a 57-year-old female patient who follows in an outpatient basis Dr. Garrido for primary care and Dr. Raman for pulmonology. She has been following with Dr. Raman who performed a computed tomography scan of the chest revealing bilateral pulmonary nodules. Follow-up PET/CT demonstrated FDG avidity in the bilateral nodules and she subsequently underwent navigational bronchoscopy with biopsy which was inconclusive. She continued to complain of a chronic daily debilitating cough. She was referred to Dr. Mckeon from cardiot horacic surgery who recommended bronchoscopy with left assisted thoracoscopic surgery and wedge resection of the left upper lobe nodule for diagnosis. This was completed 06/03/2022 with final pathology consistent with nodular and necrotizing granulomatous inflammation. She remained in the hospital for 3 days, when her chest tube was discontinued she did still have evidence of a small pneumothorax but there had been no air leak and the patient was discharged on 06/06/2022 in stable condition. She recovered at home over the weekend, however she became increasingly short of breath and was noted to have increased swelling to her left chest and neck area. She reported to her primary care phys ician's office who requested she be sent to the emergency room for evaluation and treatment. Initial chest x-ray in the emergency room demonstrated 30% left- sided pneumothorax with diffuse subcutaneous emphysema. A left-sided chest tube was placed by the emergency room physicians, follow-up chest x-ray demonstrated decreased pneumothorax now measuring 15%. The patient is to be admitted for continued monitoring and chest tube management. Consultation was also placed to pulmonology. - Review of Systems Comment: Review of systems was completed and was negative except as noted - Cardiovascular Comment: Swelling to the left chest and neck - Respiratory Respiratory: Reports as per HPI, Reports dyspnea Past Medical History Past Medical History: Atrial Fibrillation, COPD, Fibromyalgia, GERD/Reflux, Osteoarthritis (OA), Thyroid Disorder Additional Past Medical History / Comment(s): STATES A-FIB RESOLVED WITH THYROID SURGERY (HAD GOITER), "BULGING DISC & TEAR", MIGRAINES, "EXHAUSTED ALL THE TIME", SOB, SEASONAL ALLERGIES. History of Any Multi-Drug Resistant Organisms: None Reported Past Surgical History: Adenoidectomy, Section, Hysterectomy, Joint Replacement, Tonsillectomy Additional Past Surgical History / Comment(s): LEFT THYROIDECTOMY, bronchoscopy, right hip replacement; bronchoscopy/left VATS/wedge resection 06/03/2022 Past Anesthesia/Blood Transfusion Reactions: Previous Problems w/ Anesthesia, Motion Sickness, Postoperative Nausea & Vomiting (PONV) Additional Past Anesthesia/Blood Transfusion Reaction / Comment(s): STATES BP DROPPED AND THEY HAD TO PUSH FLUIDS WITH THYROID SURGERY. SISTER PONV. Past Psychological History: Anxiety Smoking Status: Former smoker Past Alcohol Use History: Occasional Past Drug Use History: None Reported - Past Family History Mother Family Medical History: No Reported History Medications and Allergies Home Medications Medication Instructions Recorded Confirmed Type Omeprazole 20 mg PO DAILY PRN 08/23/21 06/09/22 History methocarbamoL [Methocarbamol] 500 mg PO QID PRN 08/23/21 06/09/22 History Diclofenac Sodium [Voltaren] 75 mg PO BID 05/29/22 06/09/22 History HYDROcodone/APAP 7.5-325MG [[place] 1 tab PO Q6H PRN 05/29/22 06/09/22 History 7.5-325] ALPRAZolam [Xanax] 0.25 mg PO BID PRN 06/09/22 06/09/22 History DULoxetine HCL [Cymbalta] 60 mg PO W/SUPPER 06/09/22 06/09/22 History Allergies Allergy/AdvReac Type Severity Reaction Status Date / Time No Known Allergies Allergy Verified 06/09/22 13:58 Surgical - Exam Vital Signs Temp Pulse Resp BP Pulse Ox 97.8 F 114 H 20 88/50 94 L 06/09/22 11:49 06/09/22 11:49 06/09/22 11:49 06/09/22 11:49 06/09/22 11:49 CONSTITUTIONAL: Awake and alert, appears mostly comfortable, cooperative, well- developed, well-nourished, no pain, no acute distress EYES: Pupils equal, round, reactive to light, normal ocular movement ENT: Dry mucous membranes NECK: No masses, no bruits, trachea midline; subcutaneous of the emphysema noted to the chest and neck extending into the face RESPIRATORY: Lungs sounds diminished to auscultation bilaterally, left greater than right. Respirations even, nonlabored. Currently on 4 L nasal cannula with oxygen saturation 100%. Strong cough. CARDIOVASCULAR: S1, S2 present. Tachy but regular rate and rhythm, sinus tach on telemetry. Palpable peripheral pulses bilaterally. GASTROINTESTINAL: Abdomen soft, nontender, nondistended without masses or organomegaly noted. There is no rebound or guarding present. Active bowel sounds present 4 quadrants. GENITOURINARY: Deferred INTEGUMENTARY: Skin is warm and dry NEUROLOGIC: Cranial nerves II through XII intact, normal coordination, no obvious motor or sensory deficits, speech is normal MUSKULOSKELETAL: Able to move all extremities, strength equal bilaterally, normal posture PSYCHIATRIC: Alert and oriented to person place and time, appropriate affect, intact judgment and insight Results - Labs 06/09/22 12:03 06/09/22 12:03 Abnormal Lab Results - Last 24 Hours (Table) 06/09/22 06/09/22 Range/Units 12:03 12:03 WBC 16.1 H (3.8-10.6) k/uL Neutrophils # 14.0 H (1.3-7.7) k/uL Sodium 131 L (137-145) mmol/L Potassium 5.8 H (3.5-5.1) mmol/L Carbon Dioxide 21 L (22-30) mmol/L Glucose 124 H (74-99) mg/dL Calcium 8.2 L (8.4-10.2) mg/dL AST 37 H (14-36) U/L Diabetes panel 06/09/22 Range/Units 12:03 Sodium 131 L (137-145) mmol/L Potassium 5.8 H (3.5-5.1) mmol/L Chloride 105 (98-107) mmol/L Carbon Dioxide 21 L (22-30) mmol/L BUN 10 (7-17) mg/dL Creatinine 0.60 (0.52-1.04) mg/dL Glucose 124 H (74-99) mg/dL Calcium 8.2 L (8.4-10.2) mg/dL AST 37 H (14-36) U/L ALT 27 (4-34) U/L Alkaline Phosphatase 112 (38-126) U/L Total Protein 7.1 (6.3-8.2) g/dL Albumin 3.6 (3.5-5.0) g/dL Calcium panel 06/09/22 Range/Units 12:03 Calcium 8.2 L (8.4-10.2) mg/dL Albumin 3.6 (3.5-5.0) g/dL Pituitary panel 06/09/22 Range/Units 12:03 Sodium 131 L (137-145) mmol/L Potassium 5.8 H (3.5-5.1) mmol/L Chloride 105 (98-107) mmol/L Carbon Dioxide 21 L (22-30) mmol/L BUN 10 (7-17) mg/dL Creatinine 0.60 (0.52-1.04) mg/dL Glucose 124 H (74-99) mg/dL Calcium 8.2 L (8.4-10.2) mg/dL Adrenal panel 06/09/22 Range/Units 12:03 Sodium 131 L (137-145) mmol/L Potassium 5.8 H (3.5-5.1) mmol/L Chloride 105 (98-107) mmol/L Carbon Dioxide 21 L (22-30) mmol/L BUN 10 (7-17) mg/dL Creatinine 0.60 (0.52-1.04) mg/dL Glucose 124 H (74-99) mg/dL Calcium 8.2 L (8.4-10.2) mg/dL Total Bilirubin 0.4 (0.2-1.3) mg/dL AST 37 H (14-36) U/L ALT 27 (4-34) U/L Alkaline Phosphatase 112 (38-126) U/L Total Protein 7.1 (6.3-8.2) g/dL Albumin 3.6 (3.5-5.0) g/dL - Imaging Chest x-ray: report reviewed, image reviewed EKG: image reviewed Assessment and Plan Assessment: 1. Left-sided pneumothorax with extensive subcutaneous emphysema, status post chest tube placement and the emergency room physicians 2. History of bilateral pulmonary nodules, status post bronchoscopy/left VATS/wedge resection of the left upper lobe nodule, final pathology consistent with nodular and necrotizing granulomatous inflammation 3. History of fibromyalgia 4. Anxiety/depression 5. Covid infection in 11/2021 6. Paroxysmal atrial fibrillation which resolved after partial thyroidectomy 7. Possible sarcoidosis 8. Previous tobacco dependence with recent cessation Plan: The patient was seen and examined in the emergency room. Chart/diagnostics reviewed. The case will be discussed with Dr. Mckeon in detail. Left pleural chest tube is currently to continuous wall suction with small intermittent air leak present. Recommend continue chest tube to continuous wall suction for another 24 hours. Incentive spirometry ordered and should be encouraged. Will monitor daily x-rays. Increase activity, ambulate as tolerated. Pain control with current medication regimen. Wean O2 as tolerated. Continue home medications. Continue to encourage smoking cessation. More recommendations to follow as patient progresses. I have personally seen and examined the patient, performed the documentation and the assessment and plan as written. Number of minutes spent on the visit: 30. ORLANDO AvilaC
[2022-06-09] MEDS ORDERED: ONDANSETRON 4 MG/2 ML VIAL IVP PRN (17:35)
[2022-06-09] MEDS ORDERED: MELATONIN 3 MG TABLET PO PRN (17:35)
[2022-06-09] MEDS: KETOROLAC 15 MG/ML 1 ML VIAL IVP SCH ×2 (18:58→21:47)
[2022-06-09] MEDS: NYSTATIN 100,000 UNIT/ML SUSP 500,000 UNIT/5 ML CUP PO SCH ×2 (20:11→20:16)
[2022-06-09] MEDS: SENNOSIDES-DOCUSATE SODIUM 1 EACH TAB PO SCH (20:11)
[2022-06-09] MEDS ORDERED: ETODOLAC 400 MG TAB PO SCH (21:00)
[2022-06-09] MEDS: HYDROmorphone 1 MG/ML 1 ML SYRINGE IVP PRN (21:46)
[2022-06-09] MEDS: HEPARIN SODIUM,PORCINE/PF 5,000 UNIT/0.5 ML SYRINGE SQ SCH (23:56)
[2022-06-10] MEDS: HYDROcodone/APAP 7.5-325MG 1 EACH TAB PO PRN ×2 (00:44→16:10)
[2022-06-10] MEDS: HYDROmorphone 1 MG/ML 1 ML SYRINGE IVP PRN ×2 (03:05→20:56)
[2022-06-10] MEDS: KETOROLAC 15 MG/ML 1 ML VIAL IVP SCH ×4 (05:16→23:10)
[2022-06-10] MEDS: PANTOPRAZOLE 40 MG TABLET PO SCH ×2 (06:04→08:58)
[2022-06-10 07:50] LABS: African American GFR (CKD) >90 (>60 ml/min/1.73 sqM); Anion Gap 5 mmol/L; Blood Urea Nitrogen 9 mg/dL (7-17); Calcium 7.9 mg/dL (8.4-10.2); Carbon Dioxide 25 mmol/L (22-30); Chloride 104 mmol/L (98-107); Glucose 146 mg/dL (74-99); Non-African American GFR(CKD) >90 (>60 ml/min/1.73 sqM); Potassium 4.6 mmol/L (3.5-5.1); Sodium 134 mmol/L (137-145)
[2022-06-10 07:56] LABS: HGB 10.2 gm/dL (11.4-16.0); Hypochromasia Slight; MCV 90.4 fL (80.0-100.0); Mean Platelet Volume 8.5; Platelet Count 293 k/uL (150-450); RBC 3.53 m/uL (3.80-5.40); RDW 14.1 % (11.5-15.5); WBC 8.3 k/uL (3.8-10.6)
--- NOTE | 2022-06-10 08:56 | XR ---
EXAMINATION TYPE: XR chest 1V portable DATE OF EXAM: 06/10/2022 COMPARISON: 06/09/2022 HISTORY: Chest tube placement TECHNIQUE: Single frontal view of the chest is obtained. FINDINGS: Severe diffuse subcutaneous emphysema. There is a persistent left- sided pneumothorax whic h appears improved now measuring approximately 10%. Diffuse interstitial pattern. Basilar consolidati on seen. Heart size normal. IMPRESSION: 1. Severe diffuse subcutaneous emphysema with mild improvement in the left-sided pneumothorax now louie suring approximately 10%. 2. Bilateral interstitial coarsening is stable. Area of consolidation in the left upper lobe stable.
[2022-06-10] MEDS: HYDROmorphone 0.5 MG/0.5 ML SYRINGE IVP PRN (08:57)
[2022-06-10] MEDS: HEPARIN SODIUM,PORCINE/PF 5,000 UNIT/0.5 ML SYRINGE SQ SCH ×3 (08:58→23:10)
[2022-06-10] MEDS: SENNOSIDES-DOCUSATE SODIUM 1 EACH TAB PO SCH ×2 (08:58→20:56)
[2022-06-10] MEDS: NYSTATIN 100,000 UNIT/ML SUSP 500,000 UNIT/5 ML CUP PO SCH ×4 (08:58→20:56)
--- NOTE | 2022-06-10 09:18 | P.PN ---
Subjective Progress Note Date: 06/10/22 Principal diagnosis: Left-sided pneumothorax with extensive subcutaneous emphysema. History of bilateral pulmonary nodules, status post bronchoscopy/left VATS/wedge resection of the left upper lobe nodule, final pathology consistent with nodular and necrotizing granulomatous inflammation, fibromyalgia, anxiety/depression, covid infection in 11/2021, paroxysmal atrial fibrillation which resolved after partial thyroidectomy, sarcoidosis, previous tobacco dependence with recent cessation POD #1 placement of left-sided pleural chest tube by the emergency room physicians The patient was seen and examined this morning sitting up in bed on the stepdown unit in no acute distress. She remains on room air with oxygen saturation 96%, able to pull 1500 mL on incentive spirometry. Remains in sinus rhythm and hemodynamically stable. Left pleural chest tube remains to continuous wall suction with intermittent air leak present, 120 mL serous drainage since insertion. Patient remains a bit frustrated with the subcu emphysema is it is very uncomfortable for her, her only other complaint is that the taste/consistency of hospital food. Chest x-ray and labs reviewed. The case was discussed in detail yesterday with Dr. Mckeon. No new concerns Objective - Vital Signs Vital signs: Vital Signs Temp 98 F 06/10/22 04:00 Pulse 90 06/10/22 04:00 Resp 20 06/10/22 04:00 BP 114/76 06/10/22 04:00 Pulse Ox 92 L 06/10/22 08:08 FiO2 Intake & Output 06/09/22 06/10/22 06/10/22 18:59 06:59 18:59 Intake Total 118 240 118 Output Total 340 Balance 118 -100 118 Weight 119 kg Intake: Oral 118 240 118 Output: Chest Tube Drainage 90 Chest Tube Left 90 Urine 250 Other: Voiding Method Bedside Commode Bedside Commode # Voids 1 1 - Exam CONSTITUTIONAL: Appears mostly comfortable, cooperative, no acute distress RESPIRATORY: Lungs sounds diminished bilaterally. Respirations even, nonlabored. Currently on room air with oxygen saturation 96%. Able to achieve 1500 mL on incentive spirometry. Strong cough. Subcutaneous emphysema present to left chest and neck area CARDIOVASCULAR: S1, S2 present. Regular rate and rhythm, sinus rhythm on telemetry. Palpable peripheral pulses bilaterally. No lower extremity edema present. No calf pain or tenderness noted. SCDs present. GASTROINTESTINAL: Abdomen soft, nontender, nondistended. Active bowel sounds present 4 quadrants. Tolerating diet. GENITOURINARY: Continues to void INTEGUMENTARY: Skin is warm and dry with evidence of good perfusion. Thoracic incisions well approximated NEUROLOGIC: Cranial nerves II through XII intact MUSKULOSKELETAL: Able to move all extremities, strength equal bilaterally, gait normal PSYCHIATRIC: Alert and oriented to person place and time, appropriate affect, intact judgment and insight INVASIVE LINES AND TUBES: Left pleural chest tube present and connected to wall suction, intermittent air leak present, 50 mL serosanguineous drainage overnight, 120 mL since insertion - Allied health notes Allied health notes reviewed: nursing - Labs CBC & Chem 7: 06/10/22 07:16 06/10/22 07:16 Labs: Abnormal Lab Results - Last 24 Hours (Table) 06/09/22 06/09/22 06/10/22 Range/Units 12:03 12:03 07:16 WBC 16.1 H (3.8-10.6) k/uL RBC 3.53 L (3.80-5.40) m/uL Hgb 10.2 L (11.4-16.0) gm/dL Hct 32.0 L (34.0-46.0) % Neutrophils # 14.0 H (1.3-7.7) k/uL Sodium 131 L (137-145) mmol/L Potassium 5.8 H (3.5-5.1) mmol/L Carbon Dioxide 21 L (22-30) mmol/L Glucose 124 H (74-99) mg/dL Calcium 8.2 L (8.4-10.2) mg/dL AST 37 H (14-36) U/L 06/10/22 Range/Units 07:16 WBC (3.8-10.6) k/uL RBC (3.80-5.40) m/uL Hgb (11.4-16.0) gm/dL Hct (34.0-46.0) % Neutrophils # (1.3-7.7) k/uL Sodium 134 L (137-145) mmol/L Potassium (3.5-5.1) mmol/L Carbon Dioxide (22-30) mmol/L Glucose 146 H (74-99) mg/dL Calcium 7.9 L (8.4-10.2) mg/dL AST (14-36) U/L - Imaging and Cardiology Chest x-ray: report reviewed, image reviewed Assessment and Plan Assessment: 1. Left-sided pneumothorax with extensive subcutaneous emphysema, status post chest tube placement and the emergency room physicians 2. History of bilateral pulmonary nodules, status post bronchoscopy/left VATS/wedge resection of the left upper lobe nodule, final pathology consistent with nodular and necrotizing granulomatous inflammation 3. History of fibromyalgia 4. Anxiety/depression 5. Covid infection in 11/2021 6. Paroxysmal atrial fibrillation which resolved after partial thyroidectomy 7. Sarcoidosis 8. Previous tobacco dependence with recent cessation Plan: 1. Continue left pleural chest tube to wall suction, monitor for air leak resolution 2. Encourage incentive spirometry use 10 times every hour while awake, bronchodilators per pulmonology 3. Will monitor daily labs and x-rays 4. Increase activity, ambulate as tolerated 5. Pain control with current medication regimen 6. Continue home medications 7. Continue to encourage smoking cessation 8. Patient may have food brought from home 9. More recommendations to follow
--- NOTE | 2022-06-10 15:00 | P.CNPUL ---
History of Present Illness Consult date: 06/10/22 Requesting physician: Neymar Mckeon Reason for consult: dyspnea, hypoxemia, pneumothorax, abnormal CXR/CT Chief complaint: Shortness of breath, pneumothorax. History of present illness: Pulmonary consult dated 06/10/2022. 57-year-old female who presents to the emergency room on June 09, shortness of breath. She had a recent lung biopsy performed by Dr. Mckeon, with a diagnosis of sarcoidosis. When she was discharged from the hospital, she had a small pneumothorax. Unfortunately, when she came back into the hospital, she had developed a larger pneumothorax, and subcutaneous emphysema. A left-sided chest tube was placed by Dr. Arsen Jimenes. She was admitted to the cardiothoracic service. Currently, she is on 3 L of oxygen. She has a left- sided chest tube. No IV fluids. There was no leak from the chest tube. The patient does have significant subcutaneous emphysema over the left chest area, up into the neck and shoulder area. Current labs white count of 8.3, hemoglobin 10.2, hematocrit 42, platelet count 293,000. Sodium 134, potassium 4.6, chloride 104, CO2 25, BUN 9, creatinine 0.64. The patient's chest x-ray today does show subcutaneous emphysema, with a very tiny left-sided pneumothorax. Review of Systems REVIEW OF SYSTEMS: CONSTITUTIONAL: [Negative.] NEUROLOGIC: [ Negative.] HEENT: [ Negative.] CARDIAC: [Negative.] PULMONARY: Shortness of breath. GI: [Negative.] : [Negative.] RHEUMATOLOGIC: [ Negative.] IMMUNOLOGIC: [ Negative.] ENDOCRINE: [Negative. ] DERMATOLOGIC: [Negative.] Past Medical History Past Medical History: Atrial Fibrillation, COPD, Fibromyalgia, GERD/Reflux, Osteoarthritis (OA), Thyroid Disorder Additional Past Medical History / Comment(s): STATES A-FIB RESOLVED WITH THYROID SURGERY (HAD GOITER), "BULGING DISC & TEAR", MIGRAINES, "EXHAUSTED ALL THE TIME", SOB, SEASONAL ALLERGIES. History of Any Multi-Drug Resistant Organisms: None Reported Past Surgical History: Adenoidectomy, Section, Hysterectomy, Joint Replacement, Tonsillectomy Additional Past Surgical History / Comment(s): LEFT THYROIDECTOMY, bronchoscopy, right hip replacement; bronchoscopy/left VATS/wedge resection 06/03/2022 Past Anesthesia/Blood Transfusion Reactions: Previous Problems w/ Anesthesia, Motion Sickness, Postoperative Nausea & Vomiting (PONV) Additional Past Anesthesia/Blood Transfusion Reaction / Comment(s): STATES BP DROPPED AND THEY HAD TO PUSH FLUIDS WITH THYROID SURGERY. SISTER PONV. Past Psychological History: Anxiety Additional Psychological History / Comment(s): ANXIETY WITH HEALTH ISSUES. STATES DULOXETINE TAKEN FOR FIBROMYALGIA. Smoking Status: Former smoker Past Alcohol Use History: Occasional Additional Past Alcohol Use History / Comment(s): SMOKES 1 PPD OR LESS, HX OF 1 1/2 PPD, STARTED SMOKING AT AGE 18. Past Drug Use History: None Reported - Past Family History Mother Family Medical History: No Reported History Medications and Allergies Home Medications Medication Instructions Recorded Confirmed Type Omeprazole 20 mg PO DAILY PRN 08/23/21 06/09/22 History methocarbamoL [Methocarbamol] 500 mg PO QID PRN 08/23/21 06/09/22 History Diclofenac Sodium [Voltaren] 75 mg PO BID 05/29/22 06/09/22 History HYDROcodone/APAP 7.5-325MG [Branch 1 tab PO Q6H PRN 05/29/22 06/09/22 History 7.5-325] ALPRAZolam [Xanax] 0.25 mg PO BID PRN 06/09/22 06/09/22 History DULoxetine HCL [Cymbalta] 60 mg PO W/SUPPER 06/09/22 06/09/22 History Allergies Allergy/AdvReac Type Severity Reaction Status Date / Time No Known Allergies Allergy Verified 06/09/22 13:58 Physical Exam Osteopathic Statement: *. No significant issues noted on an osteopathic structu ral exam other than those noted in the History and Physical/Consult. Vitals: Vital Signs Temp Pulse Pulse Resp BP BP Pulse Ox 06/10/22 11:42 97.6 F 85 17 90/55 93 L 06/10/22 08:08 92 L 06/10/22 08:00 97.8 F 95 18 95/62 92 L 06/10/22 04:00 98 F 90 20 114/76 98 06/10/22 02:00 75 20 06/10/22 00:00 75 20 128/82 97 06/09/22 20:00 98.1 F 66 20 107/60 94 L 06/09/22 18:41 97.8 F 105 H 22 103/72 99 11/14/22 18:32 105 H 22 06/09/22 17:00 105 H 22 130/94 100 06/09/22 16:32 106 H 24 149/91 100 06/09/22 15:00 109 H 18 130/72 97 Intake and Output 06/09/22 06/10/22 06/10/22 22:59 06:59 14:59 Intake Total 118 240 236 Output Total 40 300 18 Balance 78 -60 218 Intake: Oral 118 240 236 Output: Chest Tube Drainage 40 50 18 Chest Tube Left 40 50 18 Urine 250 Other: Voiding Method Bedside Commode Bedside Commode Toilet # Voids 1 1 Weight 119 kg No acute distress, oriented 3. Currently on 3 L of oxygen. No audible wheezing, use of accessory muscles, or conversational dyspnea. HEENT examination is grossly unremarkable. Neck supple. Full range of motion. No adenopathy thyromegaly or neck vein distention. Cardiovascular examination reveals regular rhythm rate. S1-S2 normal. No S3 or S4. No discernible murmur noted. Heart rate 85 bpm. Lungs reveal scattered rhonchi over the left chest. The right lung is clear. Breath sounds diminished on the left. There is significant subcutaneous emphysema over the left chest, anterior and laterally, up into the neck and shoulder area on the left. Abdomen soft bowel sounds are heard. No masses or tenderness. Extremities are intact. No cyanosis clubbing or edema. Skin is without rash or lesion. Neurologic examination is brief but nonfocal. Results - Laboratory Findings CBC and BMP: 06/10/22 07:16 06/10/22 07:16 PT/INR, D-dimer PT 10.0 sec (9.0-12.0) 06/09/22 12:03 INR 0.9 (<1.2) 06/09/22 12:03 Abnormal lab findings: Abnormal Labs 06/09/22 06/09/22 06/10/22 12:03 12:03 07:16 WBC 16.1 H RBC 3.53 L Hgb 10.2 L Hct 32.0 L Neutrophils # 14.0 H Sodium 131 L Potassium 5.8 H Carbon Dioxide 21 L Glucose 124 H Calcium 8.2 L AST 37 H 06/10/22 07:16 WBC RBC Hgb Hct Neutrophils # Sodium 134 L Potassium Carbon Dioxide Glucose 146 H Calcium 7.9 L AST - Diagnostic Findings Chest x-ray: image reviewed Assessment and Plan Assessment: Lung biopsy 06/03/2022, showing evidence of necrotizing granulomatous inflammation. No evidence of malignancy. Recurrent left-sided pneumothorax, status post chest tube insertion, with si gnificant subcutaneous emphysema. History of atrial fibrillation. History of COPD. History of fibromyalgia. History of GERD. History of osteoarthritis. Plan: Plan dated 06/10/2022. The patient appears to be relatively stable. She is on 3 L of oxygen. She's not manifesting any signs or symptoms of respiratory distress. Her chest x-ray shows a minimal left-sided pneumothorax. More significantly, she's got significant subcutaneous emphysema. We will continue to follow make recommendations along the way. No additional recommendations are made at this time. Time with Patient: Greater than 30
[2022-06-10] MEDS: DULoxetine HCL 60 MG CAPSULE.DR PO SCH (17:20)
[2022-06-11] MEDS: HYDROmorphone 1 MG/ML 1 ML SYRINGE IVP PRN ×6 (01:35→21:15)
[2022-06-11] MEDS: KETOROLAC 15 MG/ML 1 ML VIAL IVP SCH ×3 (06:33→17:05)
--- NOTE | 2022-06-11 07:28 | XR ---
EXAMINATION TYPE: XR chest 1V portable DATE OF EXAM: 06/11/2022 6:33 AM COMPARISON: Chest radiograph from one day prior. TECHNIQUE: XR chest 1V portable Frontal view of the chest. CLINICAL INDICATION:Female, 57 years old with history of Left pneumothorax; FINDINGS: Lungs/Pleura: There is no evidence of pleural effusion, focal consolidation. Moderate left pneumotho rax Pulmonary vascularity: Unremarkable. Heart/mediastinum: Cardiomediastinal silhouette is unremarkable. Musculoskeletal: No acute osseous pathology. Other findings: None Lines/Tubes: Left thoracotomy tube is present. IMPRESSION: Thoracotomy tube with diffuse subcutaneous emphysema throughout the chest and moderate left pneumotho rax.
[2022-06-11 08:45] LABS: HCT 33.4 % (34.0-46.0); HGB 10.7 gm/dL (11.4-16.0); Hypochromasia Slight; MCH 28.9 pg (25.0-35.0); MCHC 32.1 g/dL (31.0-37.0); Mean Platelet Volume 9.1; Platelet Count 295 k/uL (150-450); RBC 3.71 m/uL (3.80-5.40); RDW 14.1 % (11.5-15.5); WBC 7.2 k/uL (3.8-10.6)
--- NOTE | 2022-06-11 08:56 | P.PN ---
Subjective Progress Note Date: 06/11/22 Principal diagnosis: Left-sided pneumothorax with extensive subcutaneous emphysema. History of bilateral pulmonary nodules, status post bronchoscopy/left VATS/wedge resection of the left upper lobe nodule, final pathology consistent with nodular and necrotizing granulomatous inflammation, fibromyalgia, anxiety/depression, covid infection in 11/2021, paroxysmal atrial fibrillation which resolved after partial thyroidectomy, sarcoidosis, previous tobacco dependence with recent cessation POD #2 placement of left-sided pleural chest tube by the emergency room physicians The patient was seen and examined this morning sitting up in bed on the stepdown unit in no acute distress. She remains on room air with oxygen saturation 99%, able to pull 1250 mL on incentive spirometry. Remains in sinus rhythm and hemodynamically stable. Left pleural chest tube remains to continuous wall suction with positional intermittent air leak present, 180 mL serous drainage in last 24 hours. Patient remains a bit frustrated with the subcu emphysema is it is very uncomfortable for her. Chest x-ray and labs reviewed. Dr. Mckeon did see the patient yesterday and updated with plan of care. No new concerns Objective - Vital Signs Vital signs: Vital Signs Temp 97.7 F 06/11/22 08:00 Pulse 90 06/11/22 08:00 Resp 18 06/11/22 08:00 BP 107/60 06/11/22 08:00 Pulse Ox 91 L 06/11/22 08:00 FiO2 Intake & Output 06/10/22 06/11/22 06/11/22 18:59 06:59 18:59 Intake Total 354 Output Total 74 681 Balance 280 -681 Intake: Oral 354 Output: Chest Tube Drainage 74 81 Chest Tube Left 74 81 Urine 600 Other: Voiding Method Toilet Toilet # Voids 1 - Exam CONSTITUTIONAL: Appears mostly comfortable, cooperative, no acute distress RESPIRATORY: Lungs sounds diminished bilaterally. Respirations even, nonlabored. Currently on room air with oxygen saturation 99%. Able to achieve 1250 mL on incentive spirometry. Strong cough. Subcutaneous emphysema present to left chest and neck area CARDIOVASCULAR: S1, S2 present. Regular rate and rhythm, sinus rhythm on telemetry. Palpable peripheral pulses bilaterally. No lower extremity edema present. No calf pain or tenderness noted. SCDs present. GASTROINTESTINAL: Abdomen soft, nontender, nondistended. Active bowel sounds present 4 quadrants. Tolerating diet. GENITOURINARY: Continues to void INTEGUMENTARY: Skin is warm and dry with evidence of good perfusion. Thoracic incisions well approximated NEUROLOGIC: Cranial nerves II through XII intact MUSKULOSKELETAL: Able to move all extremities, strength equal bilaterally, gait normal PSYCHIATRIC: Alert and oriented to person place and time, appropriate affect, intact judgment and insight INVASIVE LINES AND TUBES: Left pleural chest tube present and connected to wall suction, positional intermittent air leak present, 80 mL serosanguineous drainage overnight, 180 mL in the last 24 hours - Allied health notes Allied health notes reviewed: nursing - Labs CBC & Chem 7: 06/11/22 08:04 06/10/22 07:16 Labs: Abnormal Lab Results - Last 24 Hours (Table) 06/11/22 Range/Units 08:04 RBC 3.71 L (3.80-5.40) m/uL Hgb 10.7 L (11.4-16.0) gm/dL Hct 33.4 L (34.0-46.0) % - Imaging and Cardiology Chest x-ray: report reviewed, image reviewed Assessment and Plan Assessment: 1. Left-sided pneumothorax with extensive subcutaneous emphysema, status post chest tube placement and the emergency room physicians 2. History of bilateral pulmonary nodules, status post bronchoscopy/left VATS/wedge resection of the left upper lobe nodule, final pathology consistent with nodular and necrotizing granulomatous inflammation 3. History of fibromyalgia 4. Anxiety/depression 5. Covid infection in 11/2021 6. Paroxysmal atrial fibrillation which resolved after partial thyroidectomy 7. Sarcoidosis 8. Previous tobacco dependence with recent cessation Plan: 1. Continue left pleural chest tube to wall suction, monitor for air leak resolution 2. Encourage incentive spirometry use 10 times every hour while awake, bronchodilators per pulmonology 3. Will monitor daily labs and x-rays 4. Increase activity, ambulate as tolerated 5. Pain control with current medication regimen 6. Continue home medications 7. Continue to encourage smoking cessation 8. Patient may have food brought from home 9. More recommendations to follow
[2022-06-11 09:15] LABS: African American GFR (CKD) >90 (>60 ml/min/1.73 sqM); Anion Gap 6 mmol/L; Blood Urea Nitrogen 8 mg/dL (7-17); Calcium 8.2 mg/dL (8.4-10.2); Carbon Dioxide 26 mmol/L (22-30); Chloride 103 mmol/L (98-107); Glucose 145 mg/dL (74-99); Non-African American GFR(CKD) >90 (>60 ml/min/1.73 sqM); Potassium 4.9 mmol/L (3.5-5.1); Sodium 135 mmol/L (137-145)
[2022-06-11] MEDS: SENNOSIDES-DOCUSATE SODIUM 1 EACH TAB PO SCH ×2 (09:29→21:16)
[2022-06-11] MEDS: HEPARIN SODIUM,PORCINE/PF 5,000 UNIT/0.5 ML SYRINGE SQ SCH ×2 (09:29→17:05)
[2022-06-11] MEDS: NYSTATIN 100,000 UNIT/ML SUSP 500,000 UNIT/5 ML CUP PO SCH ×4 (09:29→21:16)
--- NOTE | 2022-06-11 13:41 | P.PN ---
Subjective Progress Note Date: 06/11/22 57-year-old female who presents to the emergency room on June 09, shortness of breath. She had a recent lung biopsy performed by Dr. Mckeon, with a diagnosis of sarcoidosis. When she was discharged from the hospital, she had a small pneumothorax. Unfortunately, when she came back into the hospital, she had developed a larger pneumothorax, and subcutaneous emphysema. A left-sided chest tube was placed by Dr. Arsen Jimenes. She was admitted to the cardiothoracic service. Currently, she is on 3 L of oxygen. She has a left- sided chest tube. No IV fluids. There was no leak from the chest tube. The patient does have significant subcutaneous emphysema over the left chest area, up into the neck and shoulder area. Current labs white count of 8.3, hemoglobin 10.2, hematocrit 42, platelet count 293,000. Sodium 134, potassium 4.6, chloride 104, CO2 25, BUN 9, creatinine 0.64. The patient's chest x-ray today does show subcutaneous emphysema, with a very tiny left-sided pneumothorax. The patient is seen today 06/11/2022 in follow-up on the selective care unit. She is sitting up in bed. Awake and alert in no acute distress. She still has extensive subcutaneous emphysema in the left chest neck and face. A little less tight today compared to yesterday. No stridor. She is maintaining O2 saturations in the 90s on room air. She's been afebrile. Hemodynamically stable. Chest x-ray shows evidence of chest tube with diffuse subcutaneous emphysema throughout the chest and moderate left pneumothorax. Chest tube remains to wall suction with intermittent leak present. 180 mL of sero sanguineous fluid drained last 24 hours. She continues to utilize the incentive spirometer. White count 7.2. Hemoglobin 10.7. Sodium 135. Potassium 4.9. BUN 8. Creatinine 0.69. Glucose 145. Objective - Vital Signs Vital signs: Vital Signs Temp 98.1 F 06/11/22 12:11 Pulse 93 06/11/22 12:11 Resp 18 06/11/22 12:11 BP 101/58 06/11/22 12:11 Pulse Ox 94 L 06/11/22 12:11 FiO2 Intake & Output 06/10/22 06/11/22 06/11/22 18:59 06:59 18:59 Intake Total 354 180 Output Total 74 681 Balance 280 -681 180 Intake: Oral 354 180 Output: Chest Tube Drainage 74 81 Chest Tube Left 74 81 Urine 600 Other: Voiding Method Toilet Toilet Toilet # Voids 1 - Exam GENERAL EXAM: Alert, very pleasant 57-year-old female, on room air, fairly comfortable in no apparent distress. Extensive subcutaneous emphysema of the left chest neck and face HEAD: Extensive facial subcutaneous emphysema EYES: Normal reaction of pupils, equal size. NOSE: Clear with pink turbinates. THROAT: No erythema or exudates. NECK: No masses, no JVD. CHEST: No chest wall deformity. left sided chest tube remains in place to Pleur- evac and wall suction with intermittent leak LUNGS: Equal air entry with scattered rhonchi in the left lungs. CVS: S1 and S2 normal with no audible murmur, regular rhythm. ABDOMEN: No hepatosplenomegaly, normal bowel sounds, no guarding or rigidity. SPINE: No scoliosis or deformity SKIN: No rashes CENTRAL NERVOUS SYSTEM: No focal deficits, tone is normal in all 4 extremities. EXTREMITIES: There is no peripheral edema. No clubbing, no cyanosis. Peripheral pulses are intact. - Labs CBC & Chem 7: 06/11/22 08:04 06/11/22 08:04 Labs: Abnormal Lab Results - Last 24 Hours (Table) 06/11/22 06/11/22 Range/Units 08:04 08:04 RBC 3.71 L (3.80-5.40) m/uL Hgb 10.7 L (11.4-16.0) gm/dL Hct 33.4 L (34.0-46.0) % Sodium 135 L (137-145) mmol/L Glucose 145 H (74-99) mg/dL Calcium 8.2 L (8.4-10.2) mg/dL Assessment and Plan Assessment: Lung biopsy 06/03/2022, showing evidence of necrotizing granulomatous inflammation. No evidence of malignancy. Recurrent left-sided pneumothorax, status post chest tube insertion, with significant subcutaneous emphysema. History of atrial fibrillation. History of COPD. History of fibromyalgia. History of GERD. History of osteoarthritis. Plan: The patient was seen and evaluated Chest x-ray, labs and medications reviewed Continues with extensive subcutaneous emphysema Left-sided chest tube remains in place with intermittent leak Stable and on room air, no stridor We will continue to follow I have personally seen and examined the patient, performed the documentation and the assessment and plan as written. Number of minutes spent on the visit: 10.
[2022-06-11] MEDS: DULoxetine HCL 60 MG CAPSULE.DR PO SCH (17:05)
[2022-06-12] MEDS: HYDROmorphone 1 MG/ML 1 ML SYRINGE IVP PRN ×7 (00:31→22:02)
[2022-06-12] MEDS: HEPARIN SODIUM,PORCINE/PF 5,000 UNIT/0.5 ML SYRINGE SQ SCH ×3 (00:31→15:40)
[2022-06-12] MEDS: KETOROLAC 15 MG/ML 1 ML VIAL IVP SCH ×4 (00:31→17:48)
[2022-06-12] MEDS: PANTOPRAZOLE 40 MG TABLET PO SCH (06:22)
--- NOTE | 2022-06-12 07:50 | XR ---
EXAMINATION TYPE: XR chest 1V portable DATE OF EXAM: 06/12/2022 COMPARISON: 06/11/2022 HISTORY: Chest tube placement TECHNIQUE: Single frontal view of the chest is obtained. FINDINGS: There is severe diffuse bilateral subcutaneous emphysema left-sided chest tube.. Consolida tion in the chest tube could represent contusion. Proximal 10% left-sided pneumothorax stable. Right lung grossly clear. IMPRESSION: IMPRESSION: 1. Severe diffuse subcutaneous emphysema stable left-sided pneumothorax.
[2022-06-12 08:41] LABS: African American GFR (CKD) >90 (>60 ml/min/1.73 sqM); Anion Gap 6 mmol/L; Blood Urea Nitrogen 7 mg/dL (7-17); Calcium 8.4 mg/dL (8.4-10.2); Carbon Dioxide 27 mmol/L (22-30); Chloride 102 mmol/L (98-107); Glucose 104 mg/dL (74-99); Non-African American GFR(CKD) >90 (>60 ml/min/1.73 sqM); Potassium 4.6 mmol/L (3.5-5.1); Sodium 135 mmol/L (137-145)
[2022-06-12] MEDS: SENNOSIDES-DOCUSATE SODIUM 1 EACH TAB PO SCH ×2 (09:03→20:25)
[2022-06-12] MEDS: NYSTATIN 100,000 UNIT/ML SUSP 500,000 UNIT/5 ML CUP PO SCH ×4 (09:04→21:30)
--- NOTE | 2022-06-12 09:17 | P.PN ---
Subjective Progress Note Date: 06/12/22 Principal diagnosis: Left-sided pneumothorax with extensive subcutaneous emphysema. History of bilateral pulmonary nodules, status post bronchoscopy/left VATS/wedge resection of the left upper lobe nodule, final pathology consistent with nodular and necrotizing granulomatous inflammation, fibromyalgia, anxiety/depression, covid infection in 11/2021, paroxysmal atrial fibrillation which resolved after partial thyroidectomy, sarcoidosis, previous tobacco dependence with recent cessation POD #3 placement of left-sided pleural chest tube by the emergency room physicians The patient was seen and examined this morning sitting up in bed on the stepdown unit in no acute distress. She remains on room air with oxygen saturation 93%, able to pull 1500 mL on incentive spirometry. Remains in sinus rhythm and hemodynamically stable. Left pleural chest tube remains to continuous wall suction with no noticeable air leak present this morning, 100 mL serous drainage in last 24 hours. Chest x-ray and labs reviewed. No new concerns Objective - Vital Signs Vital signs: Vital Signs Temp 98.1 F 06/12/22 03:30 Pulse 85 06/12/22 03:30 Resp 18 06/12/22 03:30 BP 110/61 06/12/22 03:30 Pulse Ox 93 L 06/12/22 03:30 FiO2 Intake & Output 06/11/22 06/12/22 06/12/22 18:59 06:59 18:59 Intake Total 900 10 Output Total 100 Balance 900 -90 Intake: IV 10 Invasive Line 2 10 Oral 900 Output: Chest Tube Drainage 100 Chest Tube Left 100 Other: Voiding Method Toilet Toilet # Voids 2 - Exam CONSTITUTIONAL: Appears mostly comfortable, cooperative, no acute distress RESPIRATORY: Lungs sounds diminished bilaterally. Respirations even, nonlabored. Currently on room air with oxygen saturation 93%. Able to achieve 1500 mL on incentive spirometry. Strong cough. Subcutaneous emphysema present to left chest and neck area CARDIOVASCULAR: S1, S2 present. Regular rate and rhythm, sinus rhythm on telemetry. Palpable peripheral pulses bilaterally. No lower extremity edema present. No calf pain or tenderness noted. SCDs present. GASTROINTESTINAL: Abdomen soft, nontender, nondistended. Active bowel sounds present 4 quadrants. Tolerating diet. GENITOURINARY: Continues to void INTEGUMENTARY: Skin is warm and dry with evidence of good perfusion. Thoracic incisions well approximated NEUROLOGIC: Cranial nerves II through XII intact MUSKULOSKELETAL: Able to move all extremities, strength equal bilaterally, gait normal PSYCHIATRIC: Alert and oriented to person place and time, appropriate affect, intact judgment and insight INVASIVE LINES AND TUBES: Left pleural chest tube present and connected to wall suction, no air leak present this morning, 100 mL serosanguineous drainage in the last 24 hours - Allied health notes Allied health notes reviewed: nursing - Labs CBC & Chem 7: 06/11/22 08:04 06/12/22 07:17 Labs: Abnormal Lab Results - Last 24 Hours (Table) 06/11/22 06/11/22 Range/Units 08:04 08:04 RBC 3.71 L (3.80-5.40) m/uL Hgb 10.7 L (11.4-16.0) gm/dL Hct 33.4 L (34.0-46.0) % Sodium 135 L (137-145) mmol/L Glucose 145 H (74-99) mg/dL Calcium 8.2 L (8.4-10.2) mg/dL - Imaging and Cardiology Chest x-ray: report reviewed, image reviewed Assessment and Plan Assessment: 1. Left-sided pneumothorax with extensive subcutaneous emphysema, status post chest tube placement and the emergency room physicians 2. History of bilateral pulmonary nodules, status post bronchoscopy/left VATS/wedge resection of the left upper lobe nodule, final pathology consistent with nodular and necrotizing granulomatous inflammation 3. History of fibromyalgia 4. Anxiety/depression 5. Covid infection in 11/2021 6. Paroxysmal atrial fibrillation which resolved after partial thyroidectomy 7. Sarcoidosis 8. Previous tobacco dependence with recent cessation Plan: 1. Will place left pleural chest tube to waterseal, monitor for air leak/increased pneumothorax 2. Encourage incentive spirometry use 10 times every hour while awake, bronchodilators per pulmonology 3. Will monitor daily labs and x-rays 4. Increase activity, ambulate as tolerated 5. Pain control with current medication regimen 6. Continue home medications 7. Continue to encourage smoking cessation 8. More recommendations to follow
--- NOTE | 2022-06-12 11:55 | P.PN ---
Subjective Progress Note Date: 06/12/22 57-year-old female who presents to the emergency room on June 09, shortness of breath. She had a recent lung biopsy performed by Dr. Mckeon, with a diagnosis of sarcoidosis. When she was discharged from the hospital, she had a small pneumothorax. Unfortunately, when she came back into the hospital, she had developed a larger pneumothorax, and subcutaneous emphysema. A left-sided chest tube was placed by Dr. Arsen Jimenes. She was admitted to the cardiothoracic service. Currently, she is on 3 L of oxygen. She has a left- sided chest tube. No IV fluids. There was no leak from the chest tube. The patient does have significant subcutaneous emphysema over the left chest area, up into the neck and shoulder area. Current labs white count of 8.3, hemoglobin 10.2, hematocrit 42, platelet count 293,000. Sodium 134, potassium 4.6, chloride 104, CO2 25, BUN 9, creatinine 0.64. The patient's chest x-ray today does show subcutaneous emphysema, with a very tiny left-sided pneumothorax. The patient is seen today 06/11/2022 in follow-up on the selective care unit. She is sitting up in bed. Awake and alert in no acute distress. She still has extensive subcutaneous emphysema in the left chest neck and face. A little less tight today compared to yesterday. No stridor. She is maintaining O2 saturations in the 90s on room air. She's been afebrile. Hemodynamically stable. Chest x-ray shows evidence of chest tube with diffuse subcutaneous emphysema throughout the chest and moderate left pneumothorax. Chest tube remains to wall suction with intermittent leak present. 180 mL of sero sanguineous fluid drained last 24 hours. She continues to utilize the incentive spirometer. White count 7.2. Hemoglobin 10.7. Sodium 135. Potassium 4.9. BUN 8. Creatinine 0.69. Glucose 145. The patient is seen today 06/12/2022 follow-up on the selective care unit. She is currently resting comfortably in bed. Awake and alert in no acute distress. She is maintaining O2 saturations in the 90s on room air. No IV fluids. Chest x-ray continues to show significant subcutaneous emphysema. Left-sided chest tube remains in place. Currently to wall suction. Intermittent leak. Sodium 135. Potassium 4.6. BUN 7. Creatinine 0.67. Objective - Vital Signs Vital signs: Vital Signs Temp 98.1 F 06/12/22 03:30 Pulse 85 06/12/22 03:30 Resp 18 06/12/22 03:30 BP 110/61 06/12/22 03:30 Pulse Ox 93 L 06/12/22 03:30 FiO2 Intake & Output 06/11/22 06/12/22 06/12/22 18:59 06:59 18:59 Intake Total 900 10 180 Output Total 100 Balance 900 -90 180 Intake: IV 10 Invasive Line 2 10 Oral 900 180 Output: Chest Tube Drainage 100 Chest Tube Left 100 Other: Voiding Method Toilet Toilet # Voids 2 - Exam GENERAL EXAM: Alert, pleasant 57-year-old female, on room air, fairly comfortable in no apparent distress. Extensive subcutaneous emphysema of the left chest neck and face HEAD: Extensive facial subcutaneous emphysema EYES: Normal reaction of pupils, equal size. NOSE: Clear with pink turbinates. THROAT: No erythema or exudates. NECK: No masses, no JVD. CHEST: No chest wall deformity. Left sided chest tube remains in place to Pleur- evac and wall suction with intermittent leak LUNGS: Equal air entry with scattered rhonchi in the left lungs. CVS: S1 and S2 normal with no audible murmur, regular rhythm. ABDOMEN: No hepatosplenomegaly, normal bowel sounds, no guarding or rigidity. SPINE: No scoliosis or deformity SKIN: No rashes CENTRAL NERVOUS SYSTEM: No focal deficits, tone is normal in all 4 extremities. EXTREMITIES: There is no peripheral edema. No clubbing, no cyanosis. Peripheral pulses are intact. - Labs CBC & Chem 7: 06/11/22 08:04 06/12/22 07:17 Labs: Abnormal Lab Results - Last 24 Hours (Table) 06/12/22 Range/Units 07:17 Sodium 135 L (137-145) mmol/L Glucose 104 H (74-99) mg/dL Assessment and Plan Assessment: Lung biopsy 06/03/2022, showing evidence of necrotizing granulomatous inflammation. No evidence of malignancy. Recurrent left-sided pneumothorax, status post chest tube insertion, with significant subcutaneous emphysema. History of atrial fibrillation. History of COPD. History of fibromyalgia. History of GERD. History of osteoarthritis. Plan: The patient was seen and evaluated Chest x-ray, labs and medications reviewed Stable and on room air Continues with extensive subcutaneous emphysema Left-sided chest tube remains in place To be placed to [facility] per CT services We will continue to follow I have personally seen and examined the patient, performed the documentation and the assessment and plan as written. Number of minutes spent on the visit: 10.
--- NOTE | 2022-06-12 15:32 | XR ---
EXAMINATION TYPE: XR chest 1V portable DATE OF EXAM: 06/12/2022 3:14 PM COMPARISON: Chest radiographs from same day TECHNIQUE: XR chest 1V portable Frontal view of the chest. CLINICAL INDICATION:Female, 57 years old with history of pneumothorax; FINDINGS: Lungs/Pleura: There is no evidence of pleural effusion, focal consolidation. Small pneumothorax noted on the left which appears to be increased in size from prior. Pulmonary vascularity: Unremarkable. Heart/mediastinum: Cardiomediastinal silhouette is unremarkable. Musculoskeletal: No acute osseous pathology. Lines/Tubes: Left thoracotomy tube in place with small pneumothorax. There is subcutaneous emphysema noted which i s not significantly changed from prior. IMPRESSION: 1. Small left pneumothorax which may be increased from prior. Thoracotomy tube in similar position. 2. Redemonstration of diffuse homogeneous emphysema.
[2022-06-12 16:35] LABS: HCT 33.4 % (34.0-46.0); HGB 10.6 gm/dL (11.4-16.0); Hypochromasia Marked; MCH 29.4 pg (25.0-35.0); MCHC 31.7 g/dL (31.0-37.0); MCV 92.5 fL (80.0-100.0); Mean Platelet Volume 10.9; Platelet Count 266 k/uL (150-450); RBC 3.61 m/uL (3.80-5.40); RDW 14.2 % (11.5-15.5); WBC 6.3 k/uL (3.8-10.6)
[2022-06-12] MEDS: DULoxetine HCL 60 MG CAPSULE.DR PO SCH (18:59)
[2022-06-13] MEDS: HEPARIN SODIUM,PORCINE/PF 5,000 UNIT/0.5 ML SYRINGE SQ SCH ×4 (00:02→23:50)
[2022-06-13] MEDS: HYDROcodone/APAP 7.5-325MG 1 EACH TAB PO PRN (00:11)
[2022-06-13] MEDS: HYDROmorphone 1 MG/ML 1 ML SYRINGE IVP PRN ×7 (01:57→23:50)
[2022-06-13] MEDS: PANTOPRAZOLE 40 MG TABLET PO SCH (06:46)
--- NOTE | 2022-06-13 07:41 | XR ---
EXAMINATION TYPE: XR chest 1V portable DATE OF EXAM: 06/13/2022 6:46 AM COMPARISON: Chest radiograph from one day prior. TECHNIQUE: XR chest 1V portable Portable AP radiograph of the chest. CLINICAL INDICATION:Female, 57 years old with history of Pneumothorax; FINDINGS: Lungs/Pleura: There is no evidence of pleural effusion, focal consolidation. There remains a small pn eumothorax. Pulmonary vascularity: Unremarkable. Heart/mediastinum: Cardiomediastinal silhouette is unremarkable. Musculoskeletal: No acute osseous pathology. Other findings: Subcutaneous emphysema scattered throughout the visualized thorax. Lines/Tubes: Left thoracotomy tube is present with small pneumothorax. No significantly changed from prior.. IMPRESSION: Left thoracotomy tube with diffuse subcutaneous emphysema and similar small pneumothorax.
[2022-06-13] MEDS: SENNOSIDES-DOCUSATE SODIUM 1 EACH TAB PO SCH ×2 (08:33→20:02)
[2022-06-13] MEDS: NYSTATIN 100,000 UNIT/ML SUSP 500,000 UNIT/5 ML CUP PO SCH ×4 (08:34→20:02)
[2022-06-13 09:27] LABS: HCT 32.4 % (34.0-46.0); HGB 10.5 gm/dL (11.4-16.0); MCHC 32.4 g/dL (31.0-37.0); MCV 89.6 fL (80.0-100.0); Mean Platelet Volume 7.9; Platelet Count 268 k/uL (150-450); RBC 3.61 m/uL (3.80-5.40); RDW 14.1 % (11.5-15.5); WBC 9.7 k/uL (3.8-10.6)
[2022-06-13 09:35] LABS: African American GFR (CKD) >90 (>60 ml/min/1.73 sqM); Anion Gap 2 mmol/L; Blood Urea Nitrogen 6 mg/dL (7-17); Calcium 8.3 mg/dL (8.4-10.2); Carbon Dioxide 32 mmol/L (22-30); Chloride 101 mmol/L (98-107); Glucose 131 mg/dL (74-99); Non-African American GFR(CKD) >90 (>60 ml/min/1.73 sqM); Potassium 4.5 mmol/L (3.5-5.1); Sodium 135 mmol/L (137-145)
--- NOTE | 2022-06-13 10:28 | CDI ---
Documentation Clarification Form Date: 06/13/2022 10:11:13 AM From: Rosibel Davila CCS, CCDS Admit Date: 06/09/2022 02:56:00 PM Patient Name: Jose Awan Visit Number: [id number] Discharge Date: ATTENTION: The Clinical Documentation Specialists (CDI) and [facility] Coding Staff appreciate your assistance in clarifying documentation. Please respond to the clarification below the line at the bottom and electronically sign. The CDI & [facility] Coding staff will review the response and follow-up if needed. Please note: Queries are made part of the Legal Health Record. If you have any questions, please contact the author of this message via ITS. Dr. Neymar Mckeon: Per the 06/09 H/P Assessment: the patient has a history of bilateral pulmonary nodules status post bronchoscopy and VATS/Wedge resection of the left upper lobe, final pathology with nodular and necrotizing granulomatous inflammation. Possible Sarcoidosis and Previous Tobacco Dependence with recent cessation. History of COVID infection in 11/2021. Additional clarification regarding the cause of the patient's necrotizing granulomatous inflammation is requested. History/Risk Factors per the 06/09 H/P: Atrial Fibrillation resolved with Thyroid Surgery (Left Thyroidectomy), COPD, Smoker until recent VATS procedure 05/2022, Fibromyalgia, GERD, Osteoarthritis, Seasonal allergies. Clinical Indicators: Presented to the ED on 06/09 with SOB and swelling to the left chest and neck. Recent lung biopsy to assess for possible sarcoidosis. Admit with Spontaneous pneumothorax, Subcutaneous emphysema, Tachycardia. 06/09 VS: T 97.8, P 114, R 20, BP 88/50, PO 94 RA - 100 15% nrb - 95 4Lnc. 06/09 CXR: Left side pneumothorax 30% with evidence of subcutaneous emphysema. Treatment 06/09: Left side Chest Tube placed in ED, Admit to Telemetry. Incentive Spirometry, Pulmonary Consulted. O2. IV Dilaudid 1 mg x1, IV Dilaudid 0.5 mg x3, IV Ativan 2 mg x1, IV Na Chl 1,000 mls @ 75 mls/hr q13H, IV Toradol 15 mg q6H. Can you please clarify if the cause of the patient's pulmonary nodules and necrotizing granulomatous inflammation if known: [ ] Pulmonary Nodules and Necrotizing Granulomatous Inflammation of the Left Upper Lung is related to the patient's previous COVID Infection. [ ] Pulmonary Nodules and Necrotizing Granulomatous Inflammation of the Left Upper Lung is not related to the patient's previous COVID infection. [ ] Pulmonary Nodules and Necrotizing Granulomatous Inflammation of the Left Upper Lung is related to the patient's history of Smoking. [ ] Pulmonary Nodules and Necrotizing Granulomatous Inflammation of the Left Upper Lung is not related to the patient's history of Smoking. [ ] Pulmonary Nodules and Necrotizing Granulomatous Inflammation of the Left Upper Lung is related to other disease process or condition, please specify: [ ] Unable to determine (Template Last Revised: September 2020) MTDD
--- NOTE | 2022-06-13 11:23 | P.PN ---
Subjective Progress Note Date: 06/13/22 Principal diagnosis: Left-sided pneumothorax with extensive subcutaneous emphysema. Past medical history significant for bilateral pulmonary nodules, status post bronchoscopy/left VATS/wedge resection of the left upper lobe nodule, final pathology consistent with nodular and necrotizing granulomatous inflammation, fibromyalgia, anxiety/depression, covid infection in 11/2021, paroxysmal atrial fibrillation which resolved after partial thyroidectomy, sarcoidosis, previous tobacco dependence with recent cessation. POD #4 placement of left-sided pleural chest tube by the emergency room physicians. The patient was seen and examined in follow-up today 06/13/2022 at her bedside on the cardiac stepdown unit. Left pleural chest tube remains in place to low continuous wall suction -20 cm H2O. Intermittent air leak is present. Draining thin serosanguineous drainage. Dr. Rice spoke with the patient about her pathology which showed lung, left upper lobe, wedge resection nodular and necrotizing granulomatous inflammation, negative for malignancy and lung left upper lobe resection showed nodular and necrotizing granulomatous inflammation, negative for invasive malignancy. Oxygen saturation are 98 percent on room air and she is achieving 1500 mL on her incentive spirometry. Remote telemetry showing normal sinus rhythm heart rate 85 BPM. Chest x-ray this morning r eviewed. She remained hemodynamically stable. Objective - Vital Signs Vital signs: Vital Signs Temp 98.1 F 06/13/22 00:00 Pulse 72 06/13/22 04:00 Resp 16 06/13/22 04:00 BP 103/57 06/13/22 04:00 Pulse Ox 98 06/13/22 04:00 FiO2 Intake & Output 06/12/22 06/13/22 06/13/22 18:59 06:59 18:59 Intake Total 2460 502 118 Output Total 50 0 Balance 2410 502 118 Intake: IV 22 Invasive Line 2 22 Oral 2460 480 118 Output: Chest Tube Drainage 50 0 Chest Tube Left 50 0 Other: Voiding Method Toilet Toilet - Exam CONSTITUTIONAL: Appears mostly comfortable, cooperative, no acute distress. RESPIRATORY: Lungs sounds diminished bilaterally. Respirations are symmetrical, nonlabored. Currently on room air with oxygen saturation 98%. Able to achieve 1500 mL on incentive spirometry. Strong cough. Subcutaneous emphysema present to left chest and neck area. CARDIOVASCULAR: S1, S2 present. Regular rate and rhythm, sinus rhythm on telemetry, heart rate 84 bpm. Palpable peripheral pulses bilaterally. No lower extremity edema present. No calf pain or tenderness noted. SCDs present. GASTROINTESTINAL: Abdomen soft, nontender, nondistended. Active bowel sounds present 4 quadrants. Tolerating diet. GENITOURINARY: Continues to void INTEGUMENTARY: Skin is warm and dry with evidence of good perfusion. Thoracic incisions well approximated, without redness or drainage. NEUROLOGIC: Cranial nerves II through XII intact.. MUSKULOSKELETAL: Able to move all extremities, strength equal bilaterally, gait normal. PSYCHIATRIC: Alert and oriented to person place and time, appropriate affect, intact judgment and insight. INVASIVE LINES AND TUBES: Left pleural chest tube present and connected to low continuous wall suction, intermittent leak present. Draining scant thin serosanguineous drainage. - Allied health notes Allied health notes reviewed: nursing - Labs CBC & Chem 7: 06/13/22 09:12 06/13/22 09:12 Labs: Abnormal Lab Results - Last 24 Hours (Table) 06/12/22 Range/Units 07:17 RBC 3.61 L (3.80-5.40) m/uL Hgb 10.6 L (11.4-16.0) gm/dL Hct 33.4 L (34.0-46.0) % - Imaging and Cardiology Chest x-ray: report reviewed, image reviewed Assessment and Plan Assessment: 1. Left-sided pneumothorax with extensive subcutaneous emphysema, status post chest tube placement and the emergency room physicians 2. History of bilateral pulmonary nodules, status post bronchoscopy/left VATS/wedge resection of the left upper lobe nodule, final pathology consistent with nodular and necrotizing granulomatous inflammation 3. History of fibromyalgia 4. Anxiety/depression 5. Covid infection in 11/2021 6. Paroxysmal atrial fibrillation which resolved after partial thyroidectomy 7. Sarcoidosis 8. Previous tobacco dependence with recent cessation Plan: 1. Will keep left pleural chest tube to low continuous wall suction -20 cm H2O, continue to monitor for air leak resolution and continue to monitor for pneumothorax. 2. Encourage incentive spirometry use 10 times every hour while awake, bronchodilators per pulmonology. 3. Will monitor daily labs and chest x-rays. 4. Increase activity, ambulate as tolerated. 5. Pain control with current medication regimen. 6. Continue home medications. 7. Discussed the importance of continued risk modification including to encourage smoking cessation. 8. Pathology results were discussed with the patient by Dr. Richard Rice, spoke with Dr. Rodriguez in pathology today and her pathology will be sent out for further evaluation at [facility]. 9. More recommendations to follow based on patient's clinical course. Time with Patient: Greater than 30
--- NOTE | 2022-06-13 12:35 | P.PN ---
Subjective Progress Note Date: 06/13/22 57-year-old female who presents to the emergency room on June 09, shortness of breath. She had a recent lung biopsy performed by Dr. Mckeon, with a diagnosis of sarcoidosis. When she was discharged from the hospital, she had a small pneumothorax. Unfortunately, when she came back into the hospital, she had developed a larger pneumothorax, and subcutaneous emphysema. A left-sided chest tube was placed by Dr. Arsen Jimenes. She was admitted to the cardiothoracic service. Currently, she is on 3 L of oxygen. She has a left- sided chest tube. No IV fluids. There was no leak from the chest tube. The patient does have significant subcutaneous emphysema over the left chest area, up into the neck and shoulder area. Current labs white count of 8.3, hemoglobin 10.2, hematocrit 42, platelet count 293,000. Sodium 134, potassium 4.6, chloride 104, CO2 25, BUN 9, creatinine 0.64. The patient's chest x-ray today does show subcutaneous emphysema, with a very tiny left-sided pneumothorax. The patient is seen today 06/11/2022 in follow-up on the selective care unit. She is sitting up in bed. Awake and alert in no acute distress. She still has extensive subcutaneous emphysema in the left chest neck and face. A little less tight today compared to yesterday. No stridor. She is maintaining O2 saturations in the 90s on room air. She's been afebrile. Hemodynamically stable. Chest x-ray shows evidence of chest tube with diffuse subcutaneous emphysema throughout the chest and moderate left pneumothorax. Chest tube remains to wall suction with intermittent leak present. 180 mL of sero sanguineous fluid drained last 24 hours. She continues to utilize the incentive spirometer. White count 7.2. Hemoglobin 10.7. Sodium 135. Potassium 4.9. BUN 8. Creatinine 0.69. Glucose 145. The patient is seen today 06/12/2022 follow-up on the selective care unit. She is currently resting comfortably in bed. Awake and alert in no acute distress. She is maintaining O2 saturations in the 90s on room air. No IV fluids. Chest x-ray continues to show significant subcutaneous emphysema. Left-sided chest tube remains in place. Currently to wall suction. Intermittent leak. Sodium 135. Potassium 4.6. BUN 7. Creatinine 0.67. The patient seen today 06/13/2022 follow-up selective care unit. She is currently resting comfortably in bed. Awake and alert in no acute distress. Chest x-ray still showing extensive subcutaneous emphysema. Left-sided chest tube remains in place. Placed on low continuous wall suction. Intermittent leak remains present. Pathology negative for malignancy. There is necrotizing granulomatous inflammation which is being reviewed at the [facility]. White count 9.7. Hemoglobin 10.5. Sodium 135. Potassium 4.5. BUN of 6. Creatinine 0.64. Glucose 131. She is maintaining O2 saturations in the 90s on room air. She's afebrile. Hemodynamically stable. Continues to work with the incentive spirometer. Heparin for DVT prophylaxis. Objective - Vital Signs Vital signs: Vital Signs Temp 97.9 F 06/13/22 12:00 Pulse 81 06/13/22 12:00 Resp 18 06/13/22 12:00 BP 108/56 06/13/22 12:00 Pulse Ox 94 L 06/13/22 12:00 FiO2 Intake & Output 06/12/22 06/13/22 06/13/22 18:59 06:59 18:59 Intake Total 2460 502 358 Output Total 50 0 0 Balance 2410 502 358 Intake: IV 22 Invasive Line 2 22 Oral 2460 480 358 Output: Chest Tube Drainage 50 0 0 Chest Tube Left 50 0 0 Other: Voiding Method Toilet Toilet - Exam GENERAL EXAM: Alert, pleasant 57-year-old female, on room air, fairly comfortable in no apparent distress. Extensive subcutaneous emphysema of the chest neck and face HEAD: Extensive facial subcutaneous emphysema EYES: Normal reaction of pupils, equal size. NOSE: Clear with pink turbinates. THROAT: No erythema or exudates. NECK: No masses, no JVD. CHEST: No chest wall deformity. Left sided chest tube remains in place to Pleur- evac and wall suction with intermittent leak LUNGS: Equal air entry with scattered rhonchi in the left lungs. CVS: S1 and S2 normal with no audible murmur, regular rhythm. ABDOMEN: No hepatosplenomegaly, normal bowel sounds, no guarding or rigidity. SPINE: No scoliosis or deformity SKIN: No rashes CENTRAL NERVOUS SYSTEM: No focal deficits, tone is normal in all 4 extremities. EXTREMITIES: There is no peripheral edema. No clubbing, no cyanosis. Peripheral pulses are intact. - Labs CBC & Chem 7: 06/13/22 09:12 06/13/22 09:12 Labs: Abnormal Lab Results - Last 24 Hours (Table) 06/12/22 06/13/22 06/13/22 Range/Units 07:17 09:12 09:12 RBC 3.61 L 3.61 L (3.80-5.40) m/uL Hgb 10.6 L 10.5 L (11.4-16.0) gm/dL Hct 33.4 L 32.4 L (34.0-46.0) % Sodium 135 L (137-145) mmol/L Carbon Dioxide 32 H (22-30) mmol/L BUN 6 L (7-17) mg/dL Glucose 131 H (74-99) mg/dL Calcium 8.3 L (8.4-10.2) mg/dL Assessment and Plan Assessment: Lung biopsy 06/03/2022, showing evidence of necrotizing granulomatous inflammation. No evidence of malignancy. Pathology also sent to the [facility] Recurrent left-sided pneumothorax, status post chest tube insertion, with significant subcutaneous emphysema. History of atrial fibrillation. Chronic tobacco dependence. History of COPD. History of fibromyalgia. History of GERD. History of osteoarthritis. Plan: The patient was seen and evaluated Chest x-ray, labs and medications reviewed Stable and on room air Continues with extensive subcutaneous emphysema Left-sided chest tube remains in place CT services continue to follow We will continue to follow I have personally seen and examined the patient, performed the documentation and the assessment and plan as written. Number of minutes spent on the visit: 10.
[2022-06-13] MEDS: DULoxetine HCL 60 MG CAPSULE.DR PO SCH (17:34)
[2022-06-14] MEDS: HYDROmorphone 1 MG/ML 1 ML SYRINGE IVP PRN ×6 (03:18→21:18)
[2022-06-14] MEDS: PANTOPRAZOLE 40 MG TABLET PO SCH (06:24)
--- NOTE | 2022-06-14 07:30 | P.PN ---
Subjective Progress Note Date: 06/14/22 Principal diagnosis: Left-sided pneumothorax with extensive subcutaneous emphysema. History of bilateral pulmonary nodules, status post bronchoscopy/left VATS/wedge resection of the left upper lobe nodule, final pathology consistent with nodular and necrotizing granulomatous inflammation, fibromyalgia, anxiety/depression, covid infection in 11/2021, paroxysmal atrial fibrillation which resolved after partial thyroidectomy, sarcoidosis, previous tobacco dependence with recent cessation POD #5 placement of left-sided pleural chest tube by the emergency room physicians The patient was seen and examined this morning sitting up in bed on the stepdown unit in no acute distress. She remains on room air with oxygen saturation 96%, able to pull 1500 mL on incentive spirometry. Remains in sinus rhythm and hemodynamically stable. Left pleural chest tube remains to continuous wall suction with no noticeable air leak present this morning, 200 mL serous drainage in last 24 hours. Chest x-ray and labs reviewed. Surgical specimen being sent to [facility] for review. No new concerns Objective - Vital Signs Vital signs: Vital Signs Temp 98.4 F 06/14/22 04:00 Pulse 92 06/14/22 04:00 Resp 19 06/14/22 04:00 BP 140/66 06/14/22 04:00 Pulse Ox 96 06/14/22 04:00 FiO2 Intake & Output 06/13/22 06/14/22 06/14/22 18:59 06:59 18:59 Intake Total 1438 502 Output Total 200 30 Balance 1238 472 Intake: IV 22 Invasive Line 2 22 Oral 1438 480 Output: Chest Tube Drainage 200 30 Chest Tube Left 200 30 Other: Voiding Method Toilet Toilet - Exam CONSTITUTIONAL: Appears comfortable, cooperative, no acute distress RESPIRATORY: Lungs sounds diminished bilaterally. Respirations even, nonlabored. Currently on room air with oxygen saturation 96%. Able to achieve 1500 mL on incentive spirometry. Strong cough. Subcutaneous emphysema present to left chest and neck area, slightly better CARDIOVASCULAR: S1, S2 present. Regular rate and rhythm, sinus rhythm on te lemetry. Palpable peripheral pulses bilaterally. No lower extremity edema present. No calf pain or tenderness noted. SCDs present. GASTROINTESTINAL: Abdomen soft, nontender, nondistended. Active bowel sounds present 4 quadrants. Tolerating diet. Positive bowel movement per patient GENITOURINARY: Continues to void INTEGUMENTARY: Skin is warm and dry with evidence of good perfusion. Thoracic incisions well approximated NEUROLOGIC: Cranial nerves II through XII intact MUSKULOSKELETAL: Able to move all extremities, strength equal bilaterally, gait normal PSYCHIATRIC: Alert and oriented to person place and time, appropriate affect, intact judgment and insight INVASIVE LINES AND TUBES: Left pleural chest tube present and connected to wall suction, no air leak present this morning, 200 mL serosanguineous drainage in the last 24 hours - Allied health notes Allied health notes reviewed: nursing - Labs CBC & Chem 7: 06/13/22 09:12 06/13/22 09:12 Labs: Abnormal Lab Results - Last 24 Hours (Table) 06/13/22 06/13/22 Range/Units 09:12 09:12 RBC 3.61 L (3.80-5.40) m/uL Hgb 10.5 L (11.4-16.0) gm/dL Hct 32.4 L (34.0-46.0) % Sodium 135 L (137-145) mmol/L Carbon Dioxide 32 H (22-30) mmol/L BUN 6 L (7-17) mg/dL Glucose 131 H (74-99) mg/dL Calcium 8.3 L (8.4-10.2) mg/dL - Imaging and Cardiology Chest x-ray: image reviewed Assessment and Plan Assessment: 1. Left-sided pneumothorax with extensive subcutaneous emphysema, status post chest tube placement and the emergency room physicians 2. History of bilateral pulmonary nodules, status post bronchoscopy/left VATS/wedge resection of the left upper lobe nodule, final pathology consistent with nodular and necrotizing granulomatous inflammation, unknown etiology, being sent to [facility] for final review 3. History of fibromyalgia 4. Anxiety/depression 5. Covid infection in 11/2021 6. Paroxysmal atrial fibrillation which resolved after partial thyroidectomy 7. Sarcoidosis 8. Previous tobacco dependence with recent cessation Plan: 1. Continue left pleural chest tube to suction, monitor for air leak/increased pneumothorax 2. Encourage incentive spirometry use 10 times every hour while awake, bronchodilators per pulmonology 3. Will monitor daily labs and x-rays 4. Increase activity, ambulate as tolerated 5. Pain control with current medication regimen 6. Continue home medications 7. Continue to encourage smoking cessation 8. More recommendations to follow
--- NOTE | 2022-06-14 08:44 | XR ---
EXAMINATION TYPE: XR chest 1V portable DATE OF EXAM: 06/14/2022 Comparison: 06/13/2022 Clinical History: 57-year-old female follow-up Left-sided pneumothorax Findings: Extensive subcutaneous emphysema persists, left greater than right. Left-sided chest tube is in place . Small left lateral pneumothorax measuring 1.1 cm versus 1.0 cm, previously, not significantly cornejo ed. Mild interstitial prominence is similar. Borderline heart size. Patchy retrocardiac and left basi lar opacity is similar. Impression: 1. Small left lateral pneumothorax measuring 1.1 cm. Relatively similar compared to 1.0 cm, previousl y. Left-sided chest tube in place. 2. Extensive subcutaneous emphysema persists, left greater than right. 3. Underlying interstitial densities, focal left midlung and retrocardiac opacities are also similar.
[2022-06-14 09:01] LABS: HCT 34.4 % (34.0-46.0); HGB 11.2 gm/dL (11.4-16.0); Hypochromasia Slight; MCH 29.2 pg (25.0-35.0); MCHC 32.6 g/dL (31.0-37.0); MCV 89.5 fL (80.0-100.0); Mean Platelet Volume 8.2; Platelet Count 298 k/uL (150-450); RBC 3.84 m/uL (3.80-5.40); RDW 13.7 % (11.5-15.5); WBC 9.5 k/uL (3.8-10.6)
[2022-06-14] MEDS: HYDROmorphone 0.5 MG/0.5 ML SYRINGE IVP PRN (09:08)
[2022-06-14] MEDS: SENNOSIDES-DOCUSATE SODIUM 1 EACH TAB PO SCH ×2 (09:09→21:14)
[2022-06-14] MEDS: NYSTATIN 100,000 UNIT/ML SUSP 500,000 UNIT/5 ML CUP PO SCH ×4 (09:09→21:14)
[2022-06-14] MEDS: HEPARIN SODIUM,PORCINE/PF 5,000 UNIT/0.5 ML SYRINGE SQ SCH ×2 (09:09→16:50)
[2022-06-14 09:17] LABS: African American GFR (CKD) >90 (>60 ml/min/1.73 sqM); Anion Gap 9 mmol/L; Blood Urea Nitrogen 5 mg/dL (7-17); Calcium 8.4 mg/dL (8.4-10.2); Carbon Dioxide 23 mmol/L (22-30); Chloride 101 mmol/L (98-107); Glucose 161 mg/dL (74-99); Non-African American GFR(CKD) >90 (>60 ml/min/1.73 sqM); Potassium 4.3 mmol/L (3.5-5.1); Sodium 133 mmol/L (137-145)
[2022-06-14] MEDS: HYDROcodone/APAP 7.5-325MG 1 EACH TAB PO PRN ×2 (10:55→16:52)
--- NOTE | 2022-06-14 14:51 | P.PN ---
Subjective Progress Note Date: 06/14/22 Principal diagnosis: Pneumothorax, subcutaneous emphysema. 57-year-old female who presents to the emergency room on June 09, shortness of breath. She had a recent lung biopsy performed by Dr. Mckeon, with a diagnosis of sarcoidosis. When she was discharged from the hospital, she had a small pneumothorax. Unfortunately, when she came back into the hospital, she had developed a larger pneumothorax, and subcutaneous emphysema. A left-sided chest tube was placed by Dr. Arsen Jimenes. She was admitted to the cardiothoracic service. Currently, she is on 3 L of oxygen. She has a left- sided chest tube. No IV fluids. There was no leak from the chest tube. The patient does have significant subcutaneous emphysema over the left chest area, up into the neck and shoulder area. Current labs white count of 8.3, hemoglobin 10.2, hematocrit 42, platelet count 293,000. Sodium 134, potassium 4.6, chloride 104, CO2 25, BUN 9, creatinine 0.64. The patient's chest x-ray today does show subcutaneous emphysema, with a very tiny left-sided pneumothorax. The patient is seen today 06/11/2022 in follow-up on the selective care unit. She is sitting up in bed. Awake and alert in no acute distress. She still has extensive subcutaneous emphysema in the left chest neck and face. A little less tight today compared to yesterday. No stridor. She is maintaining O2 saturatio ns in the 90s on room air. She's been afebrile. Hemodynamically stable. Chest x-ray shows evidence of chest tube with diffuse subcutaneous emphysema throughout the chest and moderate left pneumothorax. Chest tube remains to wall suction with intermittent leak present. 180 mL of serosanguineous fluid drained last 24 hours. She continues to utilize the incentive spirometer. White count 7.2. Hemoglobin 10.7. Sodium 135. Potassium 4.9. BUN 8. Creatinine 0.69. Glucose 145. The patient is seen today 06/12/2022 follow-up on the selective care unit. She is currently resting comfortably in bed. Awake and alert in no acute distress. She is maintaining O2 saturations in the 90s on room air. No IV fluids. Chest x-ray continues to show significant subcutaneous emphysema. Left-sided chest tube remains in place. Currently to wall suction. Intermittent leak. Sodium 135. Potassium 4.6. BUN 7. Creatinine 0.67. The patient seen today 06/13/2022 follow-up selective care unit. She is currently resting comfortably in bed. Awake and alert in no acute distress. Chest x-ray still showing extensive subcutaneous emphysema. Left-sided chest tube remains in place. Placed on low continuous wall suction. Intermittent leak remains present. Pathology negative for malignancy. There is necrotizing granulomatous inflammation which is being reviewed at the [facility]. White count 9.7. Hemoglobin 10.5. Sodium 135. Potassium 4.5. BUN of 6. Creatinine 0.64. Glucose 131. She is maintaining O2 saturations in the 90s on room air. She's afebrile. Hemodynamically stable. Continues to work with the incentive spirometer. Heparin for DVT prophylaxis. Progress note dated 06/14/2022. The patient is again seen in room 374. She is resting comfortably. She is not on any supplemental oxygen. Left chest tube is still in place. It is off of suction. There was no obvious leak. The patient has significant subcutaneous emphysema. Current labs include a white count 9.5, hemoglobin 11.2, hematocrit 34.4, and a platelet count of 298,000. Sodium 133, potassium 4.3, chlorides 101, CO2 23, BUN 5, and creatinine 0.64. Chest x-ray shows a small left lateral pneumothorax measuring 1.1 cm. Extensive subcutaneous emphysema is again seen. Objective - Vital Signs Vital signs: Vital Signs Temp 97.8 F 06/14/22 08:15 Pulse 88 06/14/22 08:15 Resp 19 06/14/22 08:15 BP 113/58 06/14/22 08:15 Pulse Ox 96 06/14/22 09:25 FiO2 Intake & Output 06/13/22 06/14/22 06/14/22 18:59 06:59 18:59 Intake Total 1438 502 540 Output Total 200 30 Balance 1238 472 540 Intake: IV 22 Invasive Line 2 22 Oral 1438 480 540 Output: Chest Tube Drainage 200 30 Chest Tube Left 200 30 Other: Voiding Method Toilet Toilet - Exam No acute distress, oriented 3. No respiratory distress, or audible wheezing, or use of accessory muscles. HEENT examination is grossly unremarkable. Neck supple. Full range of motion. No adenopathy thyromegaly or neck vein distention. Cardiovascular examination reveals regular rhythm rate. S1-S2 normal. No S3 or S4. No discernible murmur noted. Heart rate 88 bpm. Lungs reveal relatively clear breath sounds. Scattered rhonchi are noted. Breath sounds equal. Abdomen soft bowel sounds are heard. No masses or tenderness. Extremities are intact. No cyanosis clubbing or edema. Skin reveals significant subcutaneous emphysema in the left chest, shoulder, and neck area. Neurologic examination is brief but nonfocal. - Labs CBC & Chem 7: 06/14/22 08:25 06/14/22 08:25 Labs: Abnormal Lab Results - Last 24 Hours (Table) 06/14/22 06/14/22 Range/Units 08:25 08:25 Hgb 11.2 L (11.4-16.0) gm/dL Sodium 133 L (137-145) mmol/L BUN 5 L (7-17) mg/dL Glucose 161 H (74-99) mg/dL Assessment and Plan Assessment: Lung biopsy 06/03/2022, showing evidence of necrotizing granulomatous inflammation. No evidence of malignancy. Recurrent left-sided pneumothorax, status post chest tube insertion, with significant subcutaneous emphysema. History of atrial fibrillation. History of COPD. History of fibromyalgia. History of GERD. History of osteoarthritis. Plan: Plan dated 06/10/2022. The patient appears to be relatively stable. She is on 3 L of oxygen. She's not manifesting any signs or symptoms of respiratory distress. Her chest x-ray shows a minimal left-sided pneumothorax. More significantly, she's got sig nificant subcutaneous emphysema. We will continue to follow make recommendations along the way. No additional recommendations are made at this time. Plan dated 06/14/2022. The patient remains relatively stable. She is on no supplemental oxygen. Left chest tube is still in place. She still has significant subcutaneous emphysema. A small pneumothorax is noted. We will continue to follow make recommendations along the way. Prognosis is guarded. Continue with incentive spirometer. Time with Patient: Less than 30
[2022-06-14] MEDS: DULoxetine HCL 60 MG CAPSULE.DR PO SCH (16:52)
[2022-06-15] MEDS: HEPARIN SODIUM,PORCINE/PF 5,000 UNIT/0.5 ML SYRINGE SQ SCH ×4 (00:24→23:31)
[2022-06-15] MEDS: HYDROmorphone 1 MG/ML 1 ML SYRINGE IVP PRN ×8 (00:24→22:24)
[2022-06-15] MEDS: PANTOPRAZOLE 40 MG TABLET PO SCH (06:36)
--- NOTE | 2022-06-15 07:41 | P.PN ---
Subjective Progress Note Date: 06/15/22 Principal diagnosis: Left-sided pneumothorax with extensive subcutaneous emphysema. History of bilateral pulmonary nodules, status post bronchoscopy/left VATS/wedge resection of the left upper lobe nodule, final pathology consistent with nodular and necrotizing granulomatous inflammation, fibromyalgia, anxiety/depression, covid infection in 11/2021, paroxysmal atrial fibrillation which resolved after partial thyroidectomy, sarcoidosis, previous tobacco dependence with recent cessation POD #6 placement of left-sided pleural chest tube by the emergency room physicians The patient was seen and examined this morning sitting up in bed on the stepdown unit in no acute distress. Denies any pain or shortness of breath, states she feels a bit better than yesterday and feels she has less subcutaneous air. She remains on room air with oxygen saturation 94%, able to pull 1500 mL on incentive spirometry. Remains in sinus rhythm and hemodynamically stable. Left pleural chest tube remains to continuous wall suction with no noticeable air leak present this morning, 50 mL serous drainage in last 24 hours. Chest x-ray and labs reviewed. Surgical specimen being sent to [facility] for review. No new concerns Objective - Vital Signs Vital signs: Vital Signs Temp 98.0 F 06/15/22 04:00 Pulse 89 06/15/22 04:00 Resp 18 06/15/22 04:00 BP 102/57 06/15/22 04:00 Pulse Ox 96 06/15/22 07:20 FiO2 Intake & Output 06/14/22 06/15/22 06/15/22 18:59 06:59 18:59 Intake Total 2651 10 Output Total 30 10 Balance 2621 0 Intake: IV 11 10 Invasive Line 2 11 10 Oral 2640 Output: Chest Tube Drainage 30 10 Chest Tube Left 30 10 Other: Voiding Method Toilet Toilet # Voids 2 1 - Exam CONSTITUTIONAL: Appears comfortable, cooperative, no acute distress RESPIRATORY: Lungs sounds diminished bilaterally. Respirations even, nonlabored. Currently on room air with oxygen saturation 94%. Able to achieve 1500 mL on incentive spirometry. Strong cough. Subcutaneous emphysema present to left chest and neck area, better than yesterday CARDIOVASCULAR: S1, S2 present. Regular rate and rhythm, sinus rhythm on telemetry. Palpable peripheral pulses bilaterally. No lower extremity edema present. No calf pain or tenderness noted. SCDs present. GASTROINTESTINAL: Abdomen soft, nontender, nondistended. Active bowel sounds present 4 quadrants. Tolerating diet. Positive bowel movement per patient GENITOURINARY: Continues to void INTEGUMENTARY: Skin is warm and dry with evidence of good perfusion. Thoracic incisions well approximated NEUROLOGIC: Cranial nerves II through XII intact MUSKULOSKELETAL: Able to move all extremities, strength equal bilaterally, gait normal PSYCHIATRIC: Alert and oriented to person place and time, appropriate affect, intact judgment and insight INVASIVE LINES AND TUBES: Left pleural chest tube present and connected to wall suction, no air leak present this morning, 50 mL serosanguineous drainage in the last 24 hours - Allied health notes Allied health notes reviewed: nursing - Labs CBC & Chem 7: 06/14/22 08:25 06/14/22 08:25 Labs: Abnormal Lab Results - Last 24 Hours (Table) 06/14/22 06/14/22 Range/Units 08:25 08:25 Hgb 11.2 L (11.4-16.0) gm/dL Sodium 133 L (137-145) mmol/L BUN 5 L (7-17) mg/dL Glucose 161 H (74-99) mg/dL - Imaging and Cardiology Chest x-ray: image reviewed Assessment and Plan Assessment: 1. Left-sided pneumothorax with extensive subcutaneous emphysema, status post chest tube placement and the emergency room physicians 2. History of bilateral pulmonary nodules, status post bronchoscopy/left VATS/wedge resection of the left upper lobe nodule, final pathology consistent with nodular and necrotizing granulomatous inflammation, unknown etiology, being sent to [facility] for final review 3. History of fibromyalgia 4. Anxiety/depression 5. Covid infection in 11/2021 6. Paroxysmal atrial fibrillation which resolved after partial thyroidectomy 7. Sarcoidosis 8. Previous tobacco dependence with recent cessation Plan: 1. Continue left pleural chest tube to suction, placed to water seal at 6 am 06/16, repeat CXR at 10 am. If stable will trial clamping CT 2. Encourage incentive spirometry use 10 times every hour while awake, bronchodilators per pulmonology 3. Will monitor daily labs and x-rays 4. Increase activity, ambulate as tolerated 5. Pain control with current medication regimen 6. Continue home medications 7. Continue to encourage smoking cessation 8. More recommendations to follow
--- NOTE | 2022-06-15 07:53 | XR ---
EXAMINATION TYPE: XR chest 1V portable DATE OF EXAM: 06/15/2022 Comparison: 06/14/2022 Clinical History: 57-year-old female pneumothorax Findings: Heart upper limits of normal in size. Left-sided chest tube is noted. There is a trace left-sided pne umothorax which is smaller 5 mm versus 1.1 cm, previously. Interstitial prominence is similar. Focal left midlung opacity near the end of the chest tube is similar. Extensive subcutaneous emphysema pers ists left greater than right. Impression: Left-sided chest tube with trace 5 mm pneumothorax laterally versus 1.1 cm, previously. Interstitial changes, left midlung opacity, and subcutaneous emphysema are similar.
[2022-06-15] MEDS: NYSTATIN 100,000 UNIT/ML SUSP 500,000 UNIT/5 ML CUP PO SCH ×4 (09:31→20:17)
[2022-06-15] MEDS: SENNOSIDES-DOCUSATE SODIUM 1 EACH TAB PO SCH ×2 (09:31→20:17)
[2022-06-15 13:20] LABS: HCT 37.1 % (34.0-46.0); Hypochromasia Slight; MCH 29.1 pg (25.0-35.0); MCHC 32.5 g/dL (31.0-37.0); MCV 89.6 fL (80.0-100.0); Mean Platelet Volume 8.1; Platelet Count 352 k/uL (150-450); RBC 4.14 m/uL (3.80-5.40); WBC 12.9 k/uL (3.8-10.6)
[2022-06-15 13:33] LABS: African American GFR (CKD) >90 (>60 ml/min/1.73 sqM); Anion Gap 7 mmol/L; Blood Urea Nitrogen 5 mg/dL (7-17); Calcium 8.8 mg/dL (8.4-10.2); Carbon Dioxide 26 mmol/L (22-30); Chloride 102 mmol/L (98-107); Glucose 131 mg/dL (74-99); Non-African American GFR(CKD) >90 (>60 ml/min/1.73 sqM); Potassium 4.5 mmol/L (3.5-5.1); Sodium 135 mmol/L (137-145)
--- NOTE | 2022-06-15 14:49 | P.PN ---
Subjective Progress Note Date: 06/15/22 Principal diagnosis: Pneumothorax, subcutaneous emphysema. 57-year-old female who presents to the emergency room on June 09, shortness of breath. She had a recent lung biopsy performed by Dr. Mckeon, with a diagnosis of sarcoidosis. When she was discharged from the hospital, she had a small pneumothorax. Unfortunately, when she came back into the hospital, she had developed a larger pneumothorax, and subcutaneous emphysema. A left-sided chest tube was placed by Dr. Arsen Jimenes. She was admitted to the cardiothoracic service. Currently, she is on 3 L of oxygen. She has a left- sided chest tube. No IV fluids. There was no leak from the chest tube. The patient does have significant subcutaneous emphysema over the left chest area, up into the neck and shoulder area. Current labs white count of 8.3, hemoglobin 10.2, hematocrit 42, platelet count 293,000. Sodium 134, potassium 4.6, chloride 104, CO2 25, BUN 9, creatinine 0.64. The patient's chest x-ray today does show subcutaneous emphysema, with a very tiny left-sided pneumothorax. The patient is seen today 06/11/2022 in follow-up on the selective care unit. She is sitting up in bed. Awake and alert in no acute distress. She still has extensive subcutaneous emphysema in the left chest neck and face. A little less tight today compared to yesterday. No stridor. She is maintaining O2 saturatio ns in the 90s on room air. She's been afebrile. Hemodynamically stable. Chest x-ray shows evidence of chest tube with diffuse subcutaneous emphysema throughout the chest and moderate left pneumothorax. Chest tube remains to wall suction with intermittent leak present. 180 mL of serosanguineous fluid drained last 24 hours. She continues to utilize the incentive spirometer. White count 7.2. Hemoglobin 10.7. Sodium 135. Potassium 4.9. BUN 8. Creatinine 0.69. Glucose 145. The patient is seen today 06/12/2022 follow-up on the selective care unit. She is currently resting comfortably in bed. Awake and alert in no acute distress. She is maintaining O2 saturations in the 90s on room air. No IV fluids. Chest x-ray continues to show significant subcutaneous emphysema. Left-sided chest tube remains in place. Currently to wall suction. Intermittent leak. Sodium 135. Potassium 4.6. BUN 7. Creatinine 0.67. The patient seen today 06/13/2022 follow-up selective care unit. She is currently resting comfortably in bed. Awake and alert in no acute distress. Chest x-ray still showing extensive subcutaneous emphysema. Left-sided chest tube remains in place. Placed on low continuous wall suction. Intermittent leak remains present. Pathology negative for malignancy. There is necrotizing granulomatous inflammation which is being reviewed at the [facility]. White count 9.7. Hemoglobin 10.5. Sodium 135. Potassium 4.5. BUN of 6. Creatinine 0.64. Glucose 131. She is maintaining O2 saturations in the 90s on room air. She's afebrile. Hemodynamically stable. Continues to work with the incentive spirometer. Heparin for DVT prophylaxis. Progress note dated 06/14/2022. The patient is again seen in room 374. She is resting comfortably. She is not on any supplemental oxygen. Left chest tube is still in place. It is off of suction. There was no obvious leak. The patient has significant subcutaneous emphysema. Current labs include a white count 9.5, hemoglobin 11.2, hematocrit 34.4, and a platelet count of 298,000. Sodium 133, potassium 4.3, chlorides 101, CO2 23, BUN 5, and creatinine 0.64. Chest x-ray shows a small left lateral pneumothorax measuring 1.1 cm. Extensive subcutaneous emphysema is again seen. Progress note dated 06/15/2022. The patient is again seen in room 374. She is resting comfortably. She's not on any supplemental oxygen. The left chest tube still in place, and is to suction. Subcutaneous emphysema is may be a bit less. She has no obvious leak from the chest tube. White count 12.9, hemoglobin 12, hematocrit 37.1, and platelet count 352,000. Sodium 135, potassium 4.5, chlorides 102, CO2 26, BUN 5, and creatinine 0.73. Chest x-ray is essentially the same, with extensive subcutaneous emphysema, and a left-sided pneumothorax which may be just a bit smaller. Objective - Vital Signs Vital signs: Vital Signs Temp 97.7 F 06/15/22 08:00 Pulse 94 06/15/22 08:00 Resp 19 06/15/22 08:00 BP 103/56 06/15/22 08:00 Pulse Ox 96 11/20/22 08:00 FiO2 Intake & Output 06/14/22 06/15/22 06/15/22 18:59 06:59 18:59 Intake Total 2651 10 720 Output Total 30 10 Balance 2621 0 720 Intake: IV 11 10 Invasive Line 2 11 10 Oral 2640 720 Output: Chest Tube Drainage 30 10 Chest Tube Left 30 10 Other: Voiding Method Toilet Toilet Toilet # Voids 2 1 - Exam No acute distress, oriented 3. No respiratory distress, or audible wheezing, or use of accessory muscles. HEENT examination is grossly unremarkable. Neck supple. Full range of motion. No adenopathy thyromegaly or neck vein distention. Cardiovascular examination reveals regular rhythm rate. S1-S2 normal. No S3 or S4. No discernible murmur noted. Heart rate 94 bpm. Lungs reveal relatively clear breath sounds. Scattered rhonchi are noted. Breath sounds equal. Abdomen soft bowel sounds are heard. No masses or tenderness. Extremities are intact. No cyanosis clubbing or edema. Skin reveals significant subcutaneous emphysema in the left chest, shoulder, and neck area. Neurologic examination is brief but nonfocal. - Labs CBC & Chem 7: 06/15/22 12:59 06/15/22 12:59 Labs: Abnormal Lab Results - Last 24 Hours (Table) 06/15/22 06/15/22 Range/Units 12:59 12:59 WBC 12.9 H (3.8-10.6) k/uL Sodium 135 L (137-145) mmol/L BUN 5 L (7-17) mg/dL Glucose 131 H (74-99) mg/dL Assessment and Plan Assessment: Lung biopsy 06/03/2022, showing evidence of necrotizing granulomatous inflammation. No evidence of malignancy. Recurrent left-sided pneumothorax, status post chest tube insertion, with significant subcutaneous emphysema. History of atrial fibrillation. History of COPD. History of fibromyalgia. History of GERD. History of osteoarthritis. Plan: Plan dated 06/10/2022. The patient appears to be relatively stable. She is on 3 L of oxygen. She's not manifesting any signs or symptoms of respiratory distress. Her chest x-ray shows a minimal left-sided pneumothorax. More significantly, she's got significant subcutaneous emphysema. We will continue to follow make recommendations along the way. No additional recommendations are made at this time. Plan dated 06/14/2022. The patient remains relatively stable. She is on no supplemental oxygen. Left chest tube is still in place. She still has significant subcutaneous emphysema. A small pneumothorax is noted. We will continue to follow make recommendations along the way. Prognosis is guarded. Continue with incentive spirometer. Plan dated 06/15/2022. The patient remained stable. She is on no supplemental oxygen. Left chest tube remains in place. It is to suction. The patient's left-sided pneumothorax is maybe a bit smaller. She still has extensive subcutaneous emphysema. We will continue to follow make recommendations along the way. Prognosis is guarded. Labs, x-rays, and medications are all reviewed. Time with Patient: Less than 30
[2022-06-15] MEDS: DULoxetine HCL 60 MG CAPSULE.DR PO SCH (16:48)
[2022-06-15] MEDS: HYDROcodone/APAP 7.5-325MG 1 EACH TAB PO PRN (22:24)
[2022-06-16] MEDS: HYDROmorphone 1 MG/ML 1 ML SYRINGE IVP PRN ×6 (02:26→21:03)
[2022-06-16] MEDS: PANTOPRAZOLE 40 MG TABLET PO SCH (05:40)
[2022-06-16] MEDS: SENNOSIDES-DOCUSATE SODIUM 1 EACH TAB PO SCH ×2 (08:09→21:04)
[2022-06-16] MEDS: HYDROcodone/APAP 7.5-325MG 1 EACH TAB PO PRN ×2 (08:09→12:47)
[2022-06-16] MEDS: HEPARIN SODIUM,PORCINE/PF 5,000 UNIT/0.5 ML SYRINGE SQ SCH ×2 (08:09→16:41)
[2022-06-16] MEDS: NYSTATIN 100,000 UNIT/ML SUSP 500,000 UNIT/5 ML CUP PO SCH ×4 (08:13→21:04)
--- NOTE | 2022-06-16 08:42 | P.PN ---
Subjective Progress Note Date: 06/16/22 Principal diagnosis: Left-sided pneumothorax with extensive subcutaneous emphysema. History of bilateral pulmonary nodules, status post bronchoscopy/left VATS/wedge resection of the left upper lobe nodule, final pathology consistent with nodular and necrotizing granulomatous inflammation, fibromyalgia, anxiety/depression, covid infection in 11/2021, paroxysmal atrial fibrillation which resolved after partial thyroidectomy, sarcoidosis, previous tobacco dependence with recent cessation POD #7 placement of left-sided pleural chest tube by the emergency room physicians The patient was seen and examined this morning sitting up in bed on the stepdown unit in no acute distress. Denies any pain or shortness of breath, states she feels better than yesterday and feels she has less subcutaneous air. She remains on room air with oxygen saturation 95%, able to pull 1500 mL on incentive spirometry. Remains in sinus rhythm and hemodynamically stable. Left pleural chest tube placed to waterseal at 6 AM, no noticeable air leak present this morning. Chest x-ray to be completed at 10 AM. Patient is anxious to go home. No new concerns Objective - Vital Signs Vital signs: Vital Signs Temp 97.9 F 06/16/22 04:00 Pulse 82 06/16/22 04:00 Resp 18 06/16/22 04:00 BP 114/70 06/16/22 04:00 Pulse Ox 95 06/16/22 04:00 FiO2 Intake & Output 06/15/22 06/16/22 06/16/22 18:59 06:59 18:59 Intake Total 1200 1260 118 Output Total 50 400 Balance 1150 860 118 Intake: Oral 1200 1260 118 Output: Chest Tube Drainage 50 Chest Tube Left 50 Urine 400 Other: Voiding Method Toilet Toilet # Voids 2 2 - Exam CONSTITUTIONAL: Appears comfortable, cooperative, no acute distress RESPIRATORY: Lungs sounds diminished bilaterally. Respirations even, nonlabored. Currently on room air with oxygen saturation 95%. Able to achieve 1500 mL on incentive spirometry. Strong cough. Subcutaneous emphysema present to left chest and neck area, continues to decrease daily CARDIOVASCULAR: S1, S2 present. Regular rate and rhythm, sinus rhythm on telemetry. Palpable peripheral pulses bilaterally. No lower extremity edema present. No calf pain or tenderness noted. SCDs present. GASTROINTESTINAL: Abdomen soft, nontender, nondistended. Active bowel sounds present 4 quadrants. Tolerating diet. Positive bowel movement per patient GENITOURINARY: Continues to void INTEGUMENTARY: Skin is warm and dry with evidence of good perfusion. Thoracic incisions well approximated NEUROLOGIC: Cranial nerves II through XII intact MUSKULOSKELETAL: Able to move all extremities, strength equal bilaterally, gait normal PSYCHIATRIC: Alert and oriented to person place and time, appropriate affect, intact judgment and insight INVASIVE LINES AND TUBES: Left pleural chest tube present to waterseal, no air leak present this morning - Allied health notes Allied health notes reviewed: nursing - Labs CBC & Chem 7: 06/15/22 12:59 06/15/22 12:59 Labs: Abnormal Lab Results - Last 24 Hours (Table) 06/15/22 06/15/22 Range/Units 12:59 12:59 WBC 12.9 H (3.8-10.6) k/uL Sodium 135 L (137-145) mmol/L BUN 5 L (7-17) mg/dL Glucose 131 H (74-99) mg/dL - Imaging and Cardiology Chest x-ray: pending Assessment and Plan Assessment: 1. Left-sided pneumothorax with extensive subcutaneous emphysema, status post chest tube placement and the emergency room physicians 2. History of bilateral pulmonary nodules, status post bronchoscopy/left VATS/wedge resection of the left upper lobe nodule, final pathology consistent with nodular and necrotizing granulomatous inflammation, unknown etiology, being sent to [facility] for final review 3. History of fibromyalgia 4. Anxiety/depression 5. Covid infection in 11/2021 6. Paroxysmal atrial fibrillation which resolved after partial thyroidectomy 7. Sarcoidosis 8. Previous tobacco dependence with recent cessation Plan: 1. Continue left pleural chest tube waterseal, repeat CXR at 10 am. If stable will trial clamping CT for possible removal later today 2. Encourage incentive spirometry use 10 times every hour while awake, bronchodilators per pulmonology 3. Will monitor daily labs and x-rays 4. Increase activity, ambulate as tolerated 5. Pain control with current medication regimen 6. Continue home medications 7. Continue to encourage smoking cessation 8. More recommendations to follow
--- NOTE | 2022-06-16 08:48 | CDI ---
Documentation Clarification Form Date: 06/13/2022 10:11:00 AM From: Rosibel Davila CCS, CCDS Admit Date: 06/09/2022 02:56:00 PM Patient Name: Jose Awan Visit Number: [id number] Discharge Date: ATTENTION: The Clinical Documentation Specialists (CDI) and [facility] Coding Staff appreciate your assistance in clarifying documentation. Please respond to the clarification below the line at the bottom and electronically sign. The CDI & [facility] Coding staff will review the response and follow-up if needed. Please note: Queries are made part of the Legal Health Record. If you have any questions, please contact the author of this message via ITS. Dr. Neymar Mckeon: Per the 06/09 H/P Assessment: the patient has a history of bilateral pulmonary nodules status post bronchoscopy and VATS/Wedge resection of the left upper lobe, final pathology with nodular and necrotizing granulomatous inflammation. Possible Sarcoidosis and Previous Tobacco Dependence with recent cessation. History of COVID infection in 11/2021. Additional clarification regarding the cause of the patient's necrotizing granulomatous inflammation is requested. History/Risk Factors per the 06/09 H/P: Atrial Fibrillation resolved with Thyroid Surgery (Left Thyroidectomy), COPD, Smoker until recent VATS procedure 05/2022, Fibromyalgia, GERD, Osteoarthritis, Seasonal allergies. Clinical Indicators: Presented to the ED on 06/09 with SOB and swelling to the left chest and neck. Recent lung biopsy to assess for possible sarcoidosis. Admit with Spontaneous pneumothorax, Subcutaneous emphysema, Tachycardia. 06/09 VS: T 97.8, P 114, R 20, BP 88/50, PO 94 RA - 100 15% nrb - 95 4Lnc. 06/09 CXR: Left side pneumothorax 30% with evidence of subcutaneous emphysema. Treatment 06/09: Left side Chest Tube placed in ED, Admit to Telemetry. Incentive Spirometry, Pulmonary Consulted. O2. IV Dilaudid 1 mg x1, IV Dilaudid 0.5 mg x3, IV Ativan 2 mg x1, IV Na Chl 1,000 mls @ 75 mls/hr q13H, IV Toradol 15 mg q6H. Can you please clarify if the cause of the patient's pulmonary nodules and necrotizing granulomatous inflammation if known: [ ] Pulmonary Nodules and Necrotizing Granulomatous Inflammation of the Left Upper Lung is related to the patient's previous COVID Infection. [ ] Pulmonary Nodules and Necrotizing Granulomatous Inflammation of the Left Upper Lung is not related to the patient's previous COVID infection. [ ] Pulmonary Nodules and Necrotizing Granulomatous Inflammation of the Left Upper Lung is related to the patient's history of Smoking. [ ] Pulmonary Nodules and Necrotizing Granulomatous Inflammation of the Left Upper Lung is not related to the patient's history of Smoking. [ ] Pulmonary Nodules and Necrotizing Granulomatous Inflammation of the Left Upper Lung is related to other disease process or condition, please specify: [x ] Unable to determine (Template Last Revised: September 2020) Unlikely related to smoking or covid, likely related to sarcoidosis, awaiting final review from [facility] (this was added to progress notes) JOEL
--- NOTE | 2022-06-16 10:12 | XR ---
EXAMINATION TYPE: XR chest 1V portable DATE OF EXAM: 06/16/2022 COMPARISON: 06/15/2022 HISTORY: Pneumothorax TECHNIQUE: Single frontal view of the chest is obtained. FINDINGS: Left-sided chest tube with the approximate 10% left-sided pneumothorax. Area of consolidat ion left upper lobe persists and there is severe persistent diffuse subcutaneous emphysema. Heart siz e stable. No new areas of consolidation. IMPRESSION: 1. 10% left-sided pneumothorax similar to prior exam. 2. Severe diffuse subcutaneous emphysema 3. Persistent nodular area of consolidation the left upper lobe stable
[2022-06-16 11:23] VITALS: BMI 41.1
--- NOTE | 2022-06-16 13:47 | XR ---
EXAMINATION TYPE: XR chest 1V portable DATE OF EXAM: 06/16/2022 COMPARISON: Shortness of breath HISTORY: Pneumothorax TECHNIQUE: Single frontal view of the chest is obtained. FINDINGS: Left-sided chest tube with the approximate 10% left-sided pneumothorax. Area of consolidat ion left upper lobe persists and there is severe persistent diffuse subcutaneous emphysema. Heart siz e stable. No new areas of consolidation. IMPRESSION: 1. Stable 10% left-sided pneumothorax. 2. Stable diffuse subcutaneous emphysema and left upper lobe area of nodular consolidation.
--- NOTE | 2022-06-16 14:16 | P.PN ---
Subjective Progress Note Date: 06/16/22 Pneumothorax, subcutaneous emphysema. 57-year-old female who presents to the emergency room on June 09, shortness of breath. She had a recent lung biopsy performed by Dr. Mckeon, with a diagnosis of sarcoidosis. When she was discharged from the hospital, she had a small pneumothorax. Unfortunately, when she came back into the hospital, she had developed a larger pneumothorax, and subcutaneous emphysema. A left-sided chest tube was placed by Dr. Arsen Jimenes. She was admitted to the cardiotho racic service. Currently, she is on 3 L of oxygen. She has a left-sided chest tube. No IV fluids. There was no leak from the chest tube. The patient does have significant subcutaneous emphysema over the left chest area, up into the neck and shoulder area. Current labs white count of 8.3, hemoglobin 10.2, hematocrit 42, platelet count 293,000. Sodium 134, potassium 4.6, chloride 104, CO2 25, BUN 9, creatinine 0.64. The patient's chest x-ray today does show subcutaneous emphysema, with a very tiny left-sided pneumothorax. The patient is seen today 06/11/2022 in follow-up on the selective care unit. She is sitting up in bed. Awake and alert in no acute distress. She still has extensive subcutaneous emphysema in the left chest neck and face. A little less tight today compared to yesterday. No stridor. She is maintaining O2 saturations in the 90s on room air. She's been afebrile. Hemodynamically stable. Chest x-ray shows evidence of chest tube with diffuse subcutaneous emphy sema throughout the chest and moderate left pneumothorax. Chest tube remains to wall suction with intermittent leak present. 180 mL of serosanguineous fluid drained last 24 hours. She continues to utilize the incentive spirometer. White count 7.2. Hemoglobin 10.7. Sodium 135. Potassium 4.9. BUN 8. Creatinine 0.69. Glucose 145. The patient is seen today 06/12/2022 follow-up on the selective care unit. She is currently resting comfortably in bed. Awake and alert in no acute distress. She is maintaining O2 saturations in the 90s on room air. No IV fluids. Chest x-ray continues to show significant subcutaneous emphysema. Left-sided chest tube remains in place. Currently to wall suction. Intermittent leak. Sodium 135. Potassium 4.6. BUN 7. Creatinine 0.67. The patient seen today 06/13/2022 follow-up selective care unit. She is currently resting comfortably in bed. Awake and alert in no acute distress. Chest x-ray still showing extensive subcutaneous emphysema. Left-sided chest tube remains in place. Placed on low continuous wall suction. Intermittent leak remains present. Pathology negative for malignancy. There is necrotizing granulomatous inflammation which is being reviewed at the [facility]. White count 9.7. Hemoglobin 10.5. Sodium 135. Potassium 4.5. BUN of 6. Creatinine 0.64. Glucose 131. She is maintaining O2 saturations in the 90s on room air. She's afebrile. Hemodynamically stable. Continues to work with the incentive spirometer. Heparin for DVT prophylaxis. Progress note dated 06/14/2022. The patient is again seen in room 374. She is resting comfortably. She is not on any supplemental oxygen. Left chest tube is still in place. It is off of suction. There was no obvious leak. The patient has significant subcutaneous emphysema. Current labs include a white count 9.5, hemoglobin 11.2, hematocrit 34.4, and a platelet count of 298,000. Sodium 133, potassium 4.3, chlorides 101, CO2 23, BUN 5, and creatinine 0.64. Chest x-ray shows a small left lateral pneumothorax measuring 1.1 cm. Extensive subcutaneous emphysema is again seen. Progress note dated 06/15/2022. The patient is again seen in room 374. She is resting comfortably. She's not on any supplemental oxygen. The left chest tube still in place, and is to suction. Subcutaneous emphysema is may be a bit less. She has no obvious leak from the chest tube. White count 12.9, hemoglobin 12, hematocrit 37.1, and platelet count 352,000. Sodium 135, potassium 4.5, chlorides 102, CO2 26, BUN 5, and creatinine 0.73. Chest x-ray is essentially the same, with extensive subcutaneous emphysema, and a left-sided pneumothorax which may be just a bit smaller. On today's evaluation of 06/16/2022, seeing the patient for a follow-up. The patient is doing well. The patient has a left-sided chest tube which is currently clamped. There is probably a tiny left-sided pneumothorax and a stable subcu in his emphysema. The patient is on room air oxygen. She denies having any pain. Final pathology results are still pending from the left lung wedge biopsy. The preliminary results are consistent with sarcoidosis. Objective - Vital Signs Vital signs: Vital Signs Temp 98.2 F 06/16/22 08:00 Pulse 88 06/16/22 08:00 Resp 16 06/16/22 08:00 BP 104/70 06/16/22 08:00 Pulse Ox 95 06/16/22 09:31 FiO2 Intake & Output 06/15/22 06/16/22 06/16/22 18:59 06:59 18:59 Intake Total 1200 1260 358 Output Total 50 400 Balance 1150 860 358 Weight 119 kg Intake: Oral 1200 1260 358 Output: Chest Tube Drainage 50 Chest Tube Left 50 Urine 400 Other: Voiding Method Toilet Toilet Toilet # Voids 2 2 1 - Exam No acute distress, oriented 3. No respiratory distress, or audible wheezing, or use of accessory muscles. HEENT examination is grossly unremarkable. Neck supple. Full range of motion. No adenopathy thyromegaly or neck vein distention. Cardiovascular examination reveals regular rhythm rate. S1-S2 normal. No S3 or S4. No discernible murmur noted. Heart rate 94 bpm. Lungs reveal relatively clear breath sounds. Scattered rhonchi are noted. Breath sounds equal. Abdomen soft bowel sounds are heard. No masses or tenderness. Extremities are intact. No cyanosis clubbing or edema. Skin reveals significant subcutaneous emphysema in the left chest, shoulder, and neck area. Neurologic examination is brief but nonfocal. - Labs CBC & Chem 7: 06/15/22 12:59 06/15/22 12:59 Assessment and Plan Plan: Lung biopsy 06/03/2022, showing evidence of necrotizing granulomatous inflammation. No evidence of malignancy. This is very suspicious for underlying sarcoidosis Recurrent left-sided pneumothorax, status post chest tube insertion, with significant subcutaneous emphysema. History of atrial fibrillation. History of COPD. History of fibromyalgia. History of GERD. History of osteoarthritis. Plan: Keep the chest tube clamped Repeat chest x-ray in a.m. Possible removal of the chest tube in the morning Continue using incentive spirometer Resume all medications No immediate treatment regarding this problem and the patient will need outpatient follow-up regarding treatment options for underlying sarcoidosis.
[2022-06-16] MEDS: DULoxetine HCL 60 MG CAPSULE.DR PO SCH (16:41)
[2022-06-17] MEDS: HEPARIN SODIUM,PORCINE/PF 5,000 UNIT/0.5 ML SYRINGE SQ SCH ×2 (01:00→07:43)
[2022-06-17] MEDS: HYDROmorphone 1 MG/ML 1 ML SYRINGE IVP PRN ×3 (01:10→08:18)
[2022-06-17] MEDS: PANTOPRAZOLE 40 MG TABLET PO SCH (05:39)
[2022-06-17] MEDS: NYSTATIN 100,000 UNIT/ML SUSP 500,000 UNIT/5 ML CUP PO SCH (07:38)
[2022-06-17] MEDS: HYDROcodone/APAP 7.5-325MG 1 EACH TAB PO PRN (07:43)
[2022-06-17] MEDS: SENNOSIDES-DOCUSATE SODIUM 1 EACH TAB PO SCH (07:43)
--- NOTE | 2022-06-17 09:10 | XR ---
EXAMINATION TYPE: XR chest 2V DATE OF EXAM: 06/17/2022 COMPARISON: 06/16/2022 TECHNIQUE: PA and lateral views submitted. HISTORY: Left-sided pneumothorax FINDINGS: Left-sided chest tube with the approximate 10% left-sided pneumothorax. Area of consolidation left up per lobe persists and there is severe persistent diffuse subcutaneous emphysema. Heart size stable. N o new areas of consolidation IMPRESSION: 1. Stable 10% left-sided pneumothorax. 2. Stable diffuse subcutaneous emphysema and left upper lobe area of nodular consolidation.
--- NOTE | 2022-06-17 09:42 | XR ---
EXAMINATION TYPE: XR chest 2V DATE OF EXAM: 06/17/2022 COMPARISON: 06/17/2022 TECHNIQUE: PA and lateral views submitted. HISTORY: Chest tube removal FINDINGS: Left-sided chest tube has been removed with the approximate 10% left-sided pneumothorax. Area of cons olidation left upper lobe persists and there is severe persistent diffuse subcutaneous emphysema. Hea rt size stable. No new areas of consolidation IMPRESSION: 1. Stable left-sided pneumothorax measuring approximately 10% post chest tube removal. 2. Diffuse severe subcutaneous emphysema stable. 3. Nodular area of consolidation left upper lobe stable..
[2022-06-17 10:47] VITALS: BP 98/73; RESP 16; TEMP 98.2
[2022-06-17 10:53] VITALS: PULSE 85
--- NOTE | 2022-06-17 10:54 | P.DS ---
Providers Date of admission: 06/09/22 14:56 Expected date of discharge: 06/17/22 Attending physician: Neymar Mckeon MD Consults: 06/09/22 14:56 Consult Physician Urgent Consulting Provider: Arsen Asher Consult Reason/Comments: Pneumothorax status post tube thoracostomy Do you want consulting provider notified?: Already Contacted Primary care physician: Sav Garrido [facility] Course: FINAL DIAGNOSIS: 1. Left-sided pneumothorax with extensive subcutaneous emphysema 2. History of bilateral pulmonary nodules status post bronchoscopy/left VATS/wedge resection of the left upper lobe nodule, final pathology consistent with nodular and necrotizing granulomatous inflammation, unknown etiology, likely sarcoidosis, being sent to [facility] for final review 3. History of fibromyalgia 4. Anxiety/depression 5. Coumadin infection in November 2021 6. History of paroxysmal atrial fibrillation resolved after partial thyroidectomy 7. Sarcoidosis 8. Previous tobacco dependence with recent cessation PRINCIPAL PROCEDURE: 1. Placement of left-sided pleural chest tube by the emergency room physicians HISTORY OF PRESENT ILLNESS AND HOSPITAL COURSE: This is a 57-year-old female patient who follows on an outpatient basis with Dr. Garrido for primary care and Dr. Raman for pulmonology. She had been following with Dr. Raman who performed a CT scan of the chest revealing bilateral pulmonary nodules. Follow- up PET/CT demonstrated FDG avidity in the bilateral nodules and she subsequently underwent navigational bronchoscopy with biopsy which was inconclusive. She continued to complain of chronic daily debilitating cough. She was referred to Dr. Mckeon from cardiothoracic surgery who recommended bronchoscopy with left video assisted thoracoscopic surgery and wedge resection of the left upper lobe nodule for diagnosis which was completed 06/03/2020 22, pathology consistent with nodular and necrotizing granulomatous inflammation, final pathology pending [facility] review. She remained in the hospital for 3 days, when her chest tube was discontinued she did have evidence of stable small pneumothorax but there had been no air leak and the patient was discharged on 06/06/2022 in stable condition. She recovered at home for a couple of days, however became increasingly short of breath and was noted to have increasing swelling to her left chest and neck area. She reported to her primary care physician's office who requested to be sent to the emergency room for evaluation and treatment. Initial chest x-ray in the emergency room demonstrated increased 30% left-sided pneumothorax with diffuse subcutaneous emphysema. A left-sided chest tube was placed by the emergency room physicians, follow-up chest x-ray demonstrated decreased pneumothorax. She was admitted for monitoring and chest tube management with consultation placed to pulmonology. Her chest tube continue to monitor daily, once no air leak was present and subcutaneous emphysema had begun to subside patient was placed to waterseal and eventually clamped for trial. Her lung remained mostly expanded even after 24 hours of clamped chest tube and the decision was made to remove the chest tube with stable follow-up chest x-ray. She was seen by pulmonology with clearance for discharge. Her oxygen was titrated down, she was tolerating oral diet, her pain was controlled, and she was ready to be discharged to home on postoperative day #8. She received written and verbal instruction regarding her medications, activity restrictions, signs and symptoms requiring physician notification, and follow-up appointments. Patient Condition at Discharge: Stable Plan - Discharge Summary Discharge Rx Participant: Yes New Discharge Prescriptions: New Sennosides-Docusate Sodium [Senokot-S] 1 each PO BID PRN tab PRN Reason: Constipation Acetaminophen Tab [Tylenol] 650 mg PO Q6HR PRN tab PRN Reason: Mild Pain Or Fever > 100.5 Continue Omeprazole 20 mg PO DAILY PRN PRN Reason: Heartburn HYDROcodone/APAP 7.5-325MG [[place] 7.5-325] 1 tab PO Q6H PRN PRN Reason: Pain DULoxetine HCL [Cymbalta] 60 mg PO W/SUPPER methocarbamoL [Methocarbamol] 500 mg PO QID PRN PRN Reason: Pain Diclofenac Sodium [Voltaren] 75 mg PO BID ALPRAZolam [Xanax] 0.25 mg PO BID PRN PRN Reason: Anxiety Discharge Medication List Omeprazole 20 mg PO DAILY PRN 08/23/21 [History] methocarbamoL [Methocarbamol] 500 mg PO QID PRN 08/23/21 [History] Diclofenac Sodium [Voltaren] 75 mg PO BID 05/29/22 [History] HYDROcodone/APAP 7.5-325MG [[place] 7.5-325] 1 tab PO Q6H PRN 05/29/22 [History] ALPRAZolam [Xanax] 0.25 mg PO BID PRN 06/09/22 [History] DULoxetine HCL [Cymbalta] 60 mg PO W/SUPPER 06/09/22 [History] Acetaminophen Tab [Tylenol] 650 mg PO Q6HR PRN tab 06/17/22 [Rx] Sennosides-Docusate Sodium [Senokot-S] 1 each PO BID PRN tab 06/17/22 [Rx] Follow up Appointment(s)/Referral(s): Sav Garrido MD [Primary Care Provider] - As Needed (PLEASE CALL AND SCHEDULE APPOINTMENT.) Vani Desai MD [STAFF PHYSICIAN] - 06/23/22 2:45 pm Danilo Raman MD [STAFF PHYSICIAN] - 07/04/22 1:30 pm Patient Instructions/Handouts: Spontaneous Pneumothorax (DC), How to Stop Smoking (DC) Activity/Diet/Wound Care/Special Instructions: DISCHARGE INSTRUCTIONS: 1. No driving for 2 weeks, or until physician gives their ok. 2. No lifting, pushing, or pulling more than 10 pounds for 2 weeks. The physician will advise of any restriction changes. 3. Continue pain control per as needed orders. Alternate acetaminophen (Tylenol) and ibuprofen (Motrin/Advil) for pain. 4. Continue with incentive spirometry and splinting until otherwise directed by the physician. 5. Leave chest tube dressing for 48 hours. After that, remove all dressings and shower daily. 6. Routine incision care. No powders, lotions, ointments on incisions. 7. Please call surgeon/[employer] IN[employer]ER for temp greater than 101 F or purulent drainage from incisions. 8. Smoking cessation counseling and program information provided. NO SMOKING! Discharge Disposition: HOME SELF-CARE
--- NOTE | 2022-06-21 20:24 | CDI ---
Documentation Clarification Form Date: 06/21/2022 08:13:22 PM From: Gwendolyn Strickland Phone: Admit Date: 06/09/2022 02:56:00 PM Patient Name: Jose Awan Visit Number: [id number] Discharge Date: 06/17/2022 10:49:00 AM ATTENTION: The Clinical Documentation Specialists (CDI) and [facility] Coding Staff appreciate your assistance in clarifying documentation. Please respond to the clarification below the line at the bottom and electronically sign. The CDI & [facility] Coding staff will review the response and follow-up if needed. Please note: Queries are made part of the Legal Health Record. If you have any questions, please contact the author of this message via ITS. Dr. Neymar Mckeon There is documentation subcutaneous emphysema ED Note. Additional clarification is requested. History/Risk Factors: 57yo F, LT pneumothorax, subcutaneous emphysema, Hx [place]. Pulmonary nodules s/p VATS/wedge resection, likely sarcoidosis, fibromyalgia, Anxiety, depression, Hx tobacco dependence with recent cessation Clinical Indicators: Severe diffuse subcutaneous emphysema with interval improvement in size of the pneumothorax now measuring approximately 15%. Bilateral airspace disease stable. Treatment: Left pleural chest tube remains to continuous wall suction with positional intermittent air leak present, 180 mL serous drainage in last 24 hours. Can you please clarify the specific type of Subcutaneous emphysema [ ] Nontraumatic Subcutaneous emphysema [ ] Postsurgical Subcutaneous emphysema [ ] Other, please specify [ ] Unable to determine (Template Last Revised: September 2020) MTDD
--- NOTE | 2022-06-27 11:38 | CDI ---
Documentation Clarification Form Date: 06/27/2022 11:33 AM From: Gwendolyn Strickland Phone: Admit Date: 06/09/2022 02:56:00 PM Patient Name: Jose Awan Visit Number: [id number] Discharge Date: 06/17/2022 10:49:00 AM ATTENTION: The Clinical Documentation Specialists (CDI) and [facility] Coding Staff appreciate your assistance in clarifying documentation. Please respond to the clarification below the line at the bottom and electronically sign. The CDI & [facility] Coding staff will review the response and follow-up if needed. Please note: Queries are made part of the Legal Health Record. If you have any questions, please contact the author of this message via ITS. Dr. Neymar Mckeon The previous query was signed with no response; accordingly, I am resubmitting this query. There is documentation subcutaneous emphysema ED Note. Additional clarification is requested. History/Risk Factors: 57yo F, LT pneumothorax, subcutaneous emphysema, Hx [place]. Pulmonary nodules s/p VATS/wedge resection, likely sarcoidosis, fibromyalgia, Anxiety, depression, Hx tobacco dependence with recent cessation Clinical Indicators: Severe diffuse subcutaneous emphysema with interval improvement in size of the pneumothorax now measuring approximately 15%. Bilateral airspace disease stable. Treatment: Left pleural chest tube remains to continuous wall suction with positional intermittent air leak present, 180 mL serous drainage in last 24 hours. Can you please clarify the specific type of Subcutaneous emphysema [ ] Nontraumatic Subcutaneous emphysema [ ] Postsurgical Subcutaneous emphysema [ ] Other, please specify [ ] Unable to determine (Template Last Revised: September 2020) MTDD
== END 2022-06-17 10:49 | disposition home or self-care (01) | DRG 201 ==
LOC: EC 11:42 → 3SCARD 14:56
PROVIDERS: ADMIT Thoracic Surgery (Cardiothoracic Vascular Surgery); ATTEND Thoracic Surgery (Cardiothoracic Vascular Surgery)
PROC: 0W9B30Z Drainage of Left Pleural Cavity with Drainage Device, Percutaneous Approach (ICD-10-PCS; principal; 2022-06-09)
DX: J93.83 Other pneumothorax (principal); T81.82XA Emphysema (subcutaneous) resulting from a procedure, initial encounter; E89.0 Postprocedural hypothyroidism; F32.A Depression, unspecified; D86.9 Sarcoidosis, unspecified; M79.7 Fibromyalgia; F41.9 Anxiety disorder, unspecified; R09.02 Hypoxemia; M19.90 Unspecified osteoarthritis, unspecified site; R91.8 Other nonspecific abnormal finding of lung field; Z96.641 Presence of right artificial hip joint; Z87.891 Personal history of nicotine dependence; Z86.16 Personal history of COVID-19; Z90.2 Acquired absence of lung [part of]
CPT/HCPCS: 32551; 36415; 71045; 71046; 80048; 80053; 83605; 83735; 83880; 84484; 85025; 85027; 85610; 85730; 93005; 94760; 96361; 96374; 96375; 96376; 99291

== ENCOUNTER → 2022-07-31 | Outpatient (CLI) | payer OTHER ==
--- NOTE | 2022-08-01 06:49 | CT ---
EXAMINATION TYPE: CT chest w con DATE OF EXAM: 07/31/2022 COMPARISON: Prior chest CT March 13, [address] August 02, 2021 HISTORY: h/o sarcoidosis CT DLP: 532.2 mGycm. Automated Exposure Control for Dose Reduction was Utilized. TECHNIQUE: CT scan of the thorax is performed following with IV Contrast, patient injected with 100 mL of Isovue 300. FINDINGS: LUNGS: Area of more rounded consolidation in the left upper lobe now shows more irregular consolidati on with linear density or sutures along the periphery. There is extension of surgical change of sutur es into the lingula with a regular consolidation at this level redemonstrated. There is an enlarging posterior right lower lobe mass and/or masslike consolidation now being confluent in appearance measu ring 5.6 x 3.2 cm axial image 44 where there were 2 adjacent masses present on most recent prior. The re is tiny right greater left pleural effusions. There is no pneumothorax seen bilaterally. The trac heobronchial tree is patent. MEDIASTINUM: There are is stable prominent lymph nodes in the mediastinum and bilateral hilar region without greater than 1 cm thoracic adenopathy. No cardiomegaly or pericardial effusion is seen. OTHER: No additional significant abnormality is seen. IMPRESSION: Interval surgery or treatment change to peripheral left midlung nodule with more irregula r consolidation favoring parenchymal scarring and/or atelectasis. Enlarging now confluent mass and/or masslike consolidation in the right lower lobe is more worrisome for sarcoidosis local progression b ut neoplasm needs to be considered at this level. Consider PET CT evaluation. Follow-up advised.
== END | disposition home or self-care (01) ==
LOC: RADCTMAIN 17:11
PROVIDERS: ATTEND Internal Medicine Critical Care Medicine
DX: D86.0 Sarcoidosis of lung (principal)
CPT/HCPCS: 71260; 36415; Q9967

== ENCOUNTER → 2023-02-09 | Outpatient (CLI) | payer OTHER ==
[2023-02-09 16:10] LABS: RBC 4.76 m/uL (3.80-5.40); WBC 13.2 k/uL (3.8-10.6)
[2023-02-09 16:11] LABS: Basophils # (A) 0.1 k/uL (0-0.2); Basophils % (A) 0 %; Eosinophils # (A) 0.3 k/uL (0-0.7); Eosinophils % (A) 2 %; HCT 42.6 % (34.0-46.0); HGB 13.7 gm/dL (11.4-16.0); Lymphocytes # (A) 3.1 k/uL (1.0-4.8); Lymphocytes % (A) 23 %; MCH 28.8 pg (25.0-35.0); MCHC 32.2 g/dL (31.0-37.0); MCV 89.5 fL (80.0-100.0); Mean Platelet Volume 8.4; Monocytes # (A) 0.6 k/uL (0-1.0); Monocytes % (A) 4 %; Neutrophils % (A) 68 %; Platelet Count 347 k/uL (150-450); RDW 14.7 % (11.5-15.5)
[2023-02-09 16:14] LABS: ALT 22 U/L (4-34); AST 23 U/L (14-36); African American GFR (CKD) >90 (>60 ml/min/1.73 sqM); Albumin 4.4 g/dL (3.5-5.0); Alkaline Phosphatase 135 U/L (38-126); Anion Gap 11 mmol/L; Blood Urea Nitrogen 12 mg/dL (7-17); Calcium 9.6 mg/dL (8.4-10.2); Carbon Dioxide 27 mmol/L (22-30); Chloride 101 mmol/L (98-107); Globulin 4.6 g/dL; Glucose 109 mg/dL (74-99); Non-African American GFR(CKD) >90 (>60 ml/min/1.73 sqM); Potassium 4.4 mmol/L (3.5-5.1); Sodium 139 mmol/L (137-145); Total Bilirubin 0.4 mg/dL (0.2-1.3)
[2023-02-09 16:31] LABS: T4, Free (Free Thyroxine) 1.21 ng/dL (0.78-2.19)
--- NOTE | 2023-02-09 19:46 | CT ---
EXAMINATION TYPE: CT chest w con CT DLP: 469.0 mGycm, Automated exposure control for dose reduction was used. DATE OF EXAM: 02/09/2023 4:03 PM COMPARISON: CT 08/15/2022 and PET 08/30/2021 CLINICAL INDICATION:Female, 58 years old with history of D86.0 SARCOIDOSIS OF LUNG, Sarcoidosis of regine ng. TECHNIQUE: Multiple axial images were obtained through the chest. Sagittal and coronal reformats were created for review. Contrast used:100 ml mL of Isovue 300 with IV Contrast (None if empty) Oral contrast used: (None if empty) FINDINGS: LUNGS: Decreased size of right lower lobe masslike consolidation in the right lower lung. There remains postprocedural changes left upper lung. No new or enlarging pulmonary nodules. Scattered thickened interstitial lung markings are seen throughout the lungs. No pneumothorax. Trace or pleural fusion. No left pleural effusion. Areas on prior PET increased uptake in the right upper lobe and left lateral aspect of the upper lung are no longer visualized. MEDIASTINUM: There remains stable prominent lymph nodes in the mediastinum and bilateral hilar region without greater than 1 cm thoracic adenopathy. No cardiomegaly or pericardial effusion is seen. OTHER: No additional significant abnormality is seen. IMPRESSION: 1. Persistent procedural changes to left upper lung with suture and atelectasis/scarring. 2. Interval decrease in right lower lobe masslike consolidation. Areas within the left upper lung and right upper lung with increased FDG activity are no longer visua lized. Continued surveillance.
== END | disposition home or self-care (01) ==
LOC: RADCTMAIN 15:19
PROVIDERS: ATTEND Internal Medicine Critical Care Medicine
DX: D86.0 Sarcoidosis of lung (principal); J98.4 Other disorders of lung
CPT/HCPCS: 84439; 80053; 82164; 84443; 85025; 82306; 71260; Q9967

== ENCOUNTER 2023-05-08 12:19 | Day surgery (SDC) | payer OTHER ==
[2023-05-08] MEDS ORDERED: ALPRAZolam 0.5 MG TAB PO STA (12:43)
[2023-05-08 12:50] VITALS: BP 142/83; PULSE 91; RESP 16; TEMP 97.9
--- NOTE | 2023-05-08 13:56 | US ---
ULTRASOUND GUIDED FNA THYROID BIOPSY: CLINICAL HISTORY: Right thyroid nodule FINDINGS: The procedure was explained to the patient. The risks, complications, benefits and alternatives were discussed and any questions were answered. Informed consent was obtained. Patient was placed supin e on the ultrasound table and prepped and draped in the usual sterile fashion. Utilizing a 25 gauge needle, five passes were made into the requested right thyroid nodule. Patient was stable throughout the procedure. Pathology is pending. All elements of maximal barrier technique were utilized. IMPRESSION: 1. Successful ultrasound guided FNA thyroid biopsy.
== END 2023-05-08 13:50 | disposition home or self-care (01) ==
LOC: RADPROMAIN 12:19
PROVIDERS: ATTEND Internal Medicine Endocrinology, Diabetes & Metabolism
DX: E04.1 Nontoxic single thyroid nodule (principal)
CPT/HCPCS: 10005; 88173; 88305

== ENCOUNTER → 2023-08-17 | Outpatient (CLI) | payer OTHER ==
[2023-08-18 02:45] LABS: T4, Free (Free Thyroxine) 0.92 ng/dL (0.80-1.80)
== END | disposition home or self-care (01) ==
LOC: LABWHC1 14:33
PROVIDERS: ATTEND Internal Medicine Endocrinology, Diabetes & Metabolism
DX: E05.90 Thyrotoxicosis, unspecified without thyrotoxic crisis or storm (principal)
CPT/HCPCS: 36415; 84439; 84443; 84480

== ENCOUNTER → 2023-10-09 | Outpatient (CLI) | payer OTHER ==
[2023-10-09 13:45] LABS: ALT 16 U/L (4-34); AST 21 U/L (14-36); African American GFR (CKD) >90 (>60 ml/min/1.73 sqM); Albumin 4.3 g/dL (3.5-5.0); Alkaline Phosphatase 116 U/L (38-126); Anion Gap 10 mmol/L; Blood Urea Nitrogen 11 mg/dL (7-17); Calcium 9.9 mg/dL (8.4-10.2); Carbon Dioxide 26 mmol/L (22-30); Chloride 102 mmol/L (98-107); Globulin 4.5 g/dL; Glucose 117 mg/dL (74-99); Non-African American GFR(CKD) >90 (>60 ml/min/1.73 sqM); Potassium 4.7 mmol/L (3.5-5.1); Sodium 138 mmol/L (137-145); Total Bilirubin 0.3 mg/dL (0.2-1.3); Total Protein 8.8 g/dL (6.3-8.2)
--- NOTE | 2023-10-09 14:19 | CT ---
Exam: CT Chest with contrast. Date: 10/09/2023. Comparison: 02/09/2023. History: Sarcoidosis. Technique: CT examination of the chest was performed following the intravenous administration of 100 mL of Isovue-370. Coronal and sagittal reformats were performed. CT dose lowering techniques were us ed, to include: automated exposure control, adjustment for patient size, and/or use of iterative beck nstruction. FINDINGS: Mediastinum and Manjula: There is no axillary, mediastinal or hilar lymphadenopathy. Pleural and Pericardial spaces: There are no pleural or pericardial effusions. Upper Abdomen: The visualized upper abdomen is unremarkable. Cardiovascular: The thoracic aorta is normal in size without evidence of aneurysm or dissection. Pulmonary Artery: There are no central pulmonary arterial abnormalities. The examination was not per formed to evaluate for pulmonary embolism. Lung Parenchyma and Airways: There are patchy parenchymal changes seen within the right middle and ri ght lower lobe as well as some scattered areas of intimal tree-in-bud areas of nodularity. Similar fi ndings are seen in the right upper lobe posteriorly. These findings are new since the previous examin ation and are most likely inflammatory or infectious. Follow-up in 3 months is recommended to exclude underlying nodule or malignancy. Prior surgical changes are seen with partial wedge resection of the left upper lobe. Solid parenchymal abnormality in the left lower lobe measures 1.5 cm in diameter. Bones: No fracture or aggressive osseous lesion. IMPRESSION: 1. New patchy parenchymal changes in part solid changes as well as tree-in-bud nodularity within the lungs bilaterally. These findings could be inflammatory or infectious, however an underlying malignan cy is difficult to exclude any follow-up in 3 months is recommended to assess for change. 2. No additional acute findings identified.
== END | disposition home or self-care (01) ==
LOC: RADCTMAIN 12:58
PROVIDERS: ATTEND Internal Medicine Critical Care Medicine
DX: D86.0 Sarcoidosis of lung (principal); R91.8 Other nonspecific abnormal finding of lung field
CPT/HCPCS: 80053; 71260; 36415; Q9967; 82164; 82306

== ENCOUNTER → 2024-02-12 | Outpatient (CLI) | payer OTHER ==
--- NOTE | 2024-02-13 08:02 | MR ---
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 COMPARISON: None. TECHNIQUE: Multi planar, multi sequence imaging was performed of the neck soft tissues. MR contrast: IV Contrast: 10 cc Gadavist FINDINGS: Minimal paranasal sinus mucosal thickening. There is no subcutaneous edema within the face. Meckel's Clave is relatively clear. The parotid glands are symmetrical. No abnormal postcontrast enh ancement. The glottis appears unremarkable. Several nonenlarged anterior chain lymph nodes are ident ified. There is no evidence to suggest a soft tissue mass. The cervical vertebral bodies have preserved heights and alignment. Multilevel disc desiccation and anterior osteophytosis are present. The cervical spinal cord demonstrates a normal appearance. Left aphakia of the right globe is intact. IMPRESSION: 1. The paranasal sinuses are relatively clear. No facial edema visualized. No abnormal postcontrast e nhancement since enhancement. 2. No definitive evidence for soft tissue mass no lymphadenopathy.. 3. Multilevel degenerative disc disease with associated osteoarthritic changes.
== END | disposition home or self-care (01) ==
LOC: RADMRIMAIN 20:34
PROVIDERS: ATTEND Otolaryngology
DX: M50.30 Other cervical disc degeneration, unspecified cervical region (principal); M47.892 Other spondylosis, cervical region; G50.1 Atypical facial pain
CPT/HCPCS: 70543; A9585

== ENCOUNTER → 2024-04-13 | Outpatient (CLI) | payer OTHER ==
[2024-04-13 18:20] LABS: Basophils # (A) 0.09 X 10*3/uL (0.00-0.10); Basophils % (A) 0.8 %; Eosinophils % (A) 3.7 %; HCT 40.5 % (37.2-46.3); HGB 12.9 g/dL (12.0-15.0); Lymphocytes # (A) 3.47 X 10*3/uL (0.90-5.00); Lymphocytes % (A) 32.4 %; MCH 29.2 pg (27.0-32.0); MCHC 31.9 g/dL (32.0-37.0); MCV 91.6 FL (80.0-97.0); Mean Platelet Volume 10.7 FL (9.5-12.2); Monocytes # (A) 0.72 X 10*3/uL (0.20-1.00); Monocytes % (A) 6.7 %; NRBC Per 100 WBC 0 X 10*3/uL (0.00-0.01); Neutrophils % (A) 56.1 %; Platelet Count 343 X 10*3/uL (140-440); RBC 4.42 X 10*6/uL (4.10-5.20); RDW 14.4 % (11.5-14.5); WBC 10.71 X 10*3/uL (4.50-10.00)
[2024-04-13 18:33] LABS: ALT 12 U/L (8-44); AST 16 U/L (13-35); Albumin 4.2 g/dL (3.8-4.9); Albumin/Globulin Ratio 1.14 Ratio (1.60-3.17); Alkaline Phosphatase 127 U/L (41-126); Blood Urea Nitrogen 15.6 mg/dL (9.0-27.0); Calcium 9.7 mg/dL (8.7-10.3); Carbon Dioxide 25.7 mmol/L (21.6-31.8); Chloride 100 mmol/L (96-109); Globulin 3.7 g/dL (1.6-3.3); Glucose 94 mg/dL (70-110); Potassium 5.8 mmol/L (3.5-5.5); Sodium 137 mmol/L (135-145); Total Bilirubin <0.2 mg/dL (0.3-1.2); Total Protein 7.9 g/dL (6.2-8.2)
--- NOTE | 2024-04-26 07:10 | MR ---
EXAMINATION TYPE: MR angio head wo con DATE OF EXAM: 04/13/2024 COMPARISON: None HISTORY: Atypical facial pain, anisocoria. CONTRAST: None TECHNIQUE: Multiplanar multiecho imaging on a 3.0 Stella magnet is performed through the bois forte of Dwayne lis. 3-D dpig-zm-zlgumb imaging is performed. Source images are reviewed on the computer in the axi al plane. Reconstructed images rotating on the computer are reviewed. FINDINGS: The internal carotid arteries bifurcate normally into A1 and M1 segments. The A2 segments are normal. Middle cerebral artery branches are normal. Anterior communicating artery is patent. The right posterior communicating artery is patent. The left posterior communicating artery is patent. Vertebrobasilar arteries within the mozch-ke-srsn are normal. Posterior cerebral vasculature is norm al. No suspicious aneurysm or aneurysmal dilatation is evident. No obstructions are identified. No significant flow-limiting stenosis is evident. IMPRESSION: 1. NORMAL MRA [place] OF DO. [facility], , 04/26/2024 7:07 AM
--- NOTE | 2024-04-26 09:30 | MR ---
EXAMINATION TYPE: MR brain/orbits wo/w con DATE OF EXAM: 04/13/2024 COMPARISON: None HISTORY: Atypical facial pain, anisocoria. CONTRAST: Performed utilizing 10 mL intravenous Gadavist gadolinium contrast. TECHNIQUE: Multiplanar, multiecho imaging on a 3.0 Stella magnet is performed through the brain. Stud y is performed within 24 hours of arrival to the hospital. The craniovertebral junction is normal. The pituitary is normal. Cribriform plate appears normal. Diffusion-weighted imaging is performed. No abnormal hyperintensity is present to suggest an acute i ntracranial infarct or acute ischemic change. There are a few scattered subcortical punctate white matter changes which are nonspecific but can be related to microvascular ischemic change. Differential diagnosis could include vasculitis, multiple s clerosis, migraine headaches, Lyme disease. Ventricles and sulci are appropriate for the patient age. Internal auditory canals are unremarkable. Cerebellopontine angles are normal. Small lacunar infarct or Virchow-Rashad spaces in the inferior lateral right basal ganglion. Dedicated imaging is performed through the bilateral orbits. Globes are symmetrical. Extraocular musc les appear normal. Superior ophthalmic veins appear normal. Intraconal and extraconal fat appears nor mal. Optic chiasm is unremarkable. Following contrast no suspicious enhancement evident IMPRESSION: 1. Few scattered nonspecific white matter changes. 2. Unremarkable orbits. [facility], , 04/26/2024 9:27 AM
== END | disposition home or self-care (01) ==
LOC: RADMRIMAIN 12:34
PROVIDERS: ATTEND Psychiatry & Neurology Neurology
DX: R90.82 White matter disease, unspecified (principal); H57.02 Anisocoria; G50.1 Atypical facial pain
CPT/HCPCS: 80053; 85025; 70544; 70543; 70553; A9585

== ENCOUNTER → 2024-07-15 | Outpatient (CLI) | payer OTHER ==
--- NOTE | 2024-07-15 18:36 | CT ---
EXAMINATION TYPE: CT chest w con DATE OF EXAM: 07/15/2024 4:54 PM COMPARISON: 10/09/2023 CLINICAL INDICATION: Female, 59 years old with history of D86.0 SARCOIDOSIS OF LUNG; PHH, f/u sarcoid osis TECHNIQUE: Multiple axial images were obtained through the chest. Sagittal and coronal reformats were created for review. MIP was performed on a separate workstation. Contrast used:100 mL of Isovue 300 with IV Contrast (None if empty) Oral contrast used: (None if empty) CT DLP: 715 mGycm, Automated exposure control for dose reduction was used. FINDINGS: LUNGS/ PLEURA: Resolution of majority of airspace opacity seen on prior. Scarring changes in the righ t lung base and the lingula. No pulmonary nodules. Coarsened interstitium noted. No focal consolidati on, pneumothorax or pleural effusion. AIRWAY: Patent and unremarkable. HEART: Size within normal limits. MEDIASTINUM: No gross evidence of adenopathy. VASCULATURE: No aortic aneurysm. MUSCULOSKELETAL: No acute osseous abnormalities SOFT TISSUES/LYMPH NODES: Unremarkable. LOWER NECK: No significant findings. UPPER ABDOMEN: No significant findings. IMPRESSION: 1. Resolution of prior patchy airspace opacities. There remains some basilar atelectasis in the righ t lung base and lingula. 2. Mild coarsened interstitium without lymphadenopathy. 3. No evidence for acute process. [facility], , 07/15/2024 6:34 PM
== END | disposition home or self-care (01) ==
LOC: RADCTMAIN 15:37
PROVIDERS: ATTEND Internal Medicine Critical Care Medicine
DX: D86.0 Sarcoidosis of lung (principal)
CPT/HCPCS: 71260; Q9967